=== PATIENT | male | born 1950 | race Caucasian/White ===

== ENCOUNTER → 2016-12-20 | Outpatient (REF) | payer BC, MEDICARE ==
[~2016-12-20] MED LIST: /ADVA50050 IN; ADV500INH INH; ALB2.5NEB NEB; ALBU17IN INH; ALBU83IN INH; ALEV220C2 PO; ASPI81TA85 PO; AZIT250T3 PO; CEFT500T3 PO; CO Q10CA PO; COEN100T PO; DELT1TAB PO; FURO20TA2 PO; IBUP200T45 PO; IBUPOTC PO; JOIN1CAP PO; NEBUMIS2 XX; SILD50TA PO; SPIR1CAP INH; TIOT18INH INH; TYLE325T5 PO; VENTAER IN; VITA2000 PO; VITMTA PO; ZITH250T PO
[2016-12-20 12:59] LABS: ALBUMIN 3.8 GM/DL (3.2-5.2); ALKALINE PHOSPHATASE 91 U/L (45-117); ALT/SGPT 39 U/L (12-78); ANION GAP 8 MEQ/L (8-16); AST/SGOT 19 U/L (15-37); BILIRUBIN,TOTAL 0.7 MG/DL (0.2-1.0); BLOOD UREA NITROGEN 21 MG/DL (7-18); CALCIUM LEVEL 8.8 MG/DL (8.8-10.2); CARBON DIOXIDE LEVEL 33 MEQ/L (21-32); CHLORIDE LEVEL 100 MEQ/L (98-107); CHOLESTEROL LEVEL 157 MG/DL (<200); CREATININE FOR GFR 1.08 MG/DL (0.70-1.30); GLOMERULAR FILTRATION RATE > 60.0 (>49); GLUCOSE, FASTING 119 MG/DL (80-110); POTASSIUM SERUM 4.5 MEQ/L (3.5-5.1); SODIUM LEVEL 141 MEQ/L (136-145); TOTAL PROTEIN 7.6 GM/DL (6.4-8.2); TRIGLYCERIDES LEVEL 90 MG/DL (<150)
== END ==
LOC: M SFHCADAM 08:50
PROVIDERS: ATTEND Physician Assistant Medical
DX: E11.9 Type 2 diabetes mellitus without complications (principal); E66.01 Morbid (severe) obesity due to excess calories

== ENCOUNTER → 2017-01-03 | Outpatient (CLI) | payer BC, MEDICARE ==
--- NOTE | 2017-01-03 09:39 | REP ---
Clinical: Chronic obstructive pulmonary disease. Technique: Axial noncontrast images from the thoracic inlet to the upper abdomen with coronal and sagittal re-formations. Comparison: 07/11/2016, 01/11/2016. Findings: Advanced and relatively stable chronic COPD/emphysematous changes are appreciated bilaterally with scattered areas of fibrosis and scarring. A small ill-defined density in the lingula measuring 13 mm on current examination is essentially unchanged and likely represents focal area of noncalcified scarring (image 74). No new, significant area of consolidation, nodule or mass lesion identified. No pleural effusion/reaction or pneumothorax. Mediastinum is stable with atherosclerotic changes to the coronary arteries and no evidence for cardiomegaly or pericardial effusion. Mediastinal and hilar lymph nodes remain stable and nonspecific. Tracheobronchial tree appears patent. Upper abdomen again demonstrates scattered hepatic calcifications and stable 2.2 cm benign right adrenal adenoma. Surrounding musculoskeletal structures demonstrate chronic changes. Impression: 1. Advanced chronic COPD with scattered fibrosis and scarring similar to prior examination. No new, acute or significant mediastinal or pleuroparenchymal process. 2. Stable benign right adrenal adenoma. Signed by Sean Fenton MD 01/03/2017 09:31 A
== END ==
LOC: M RAD 07:52
PROVIDERS: ATTEND Internal Medicine Pulmonary Disease
DX: J44.9 Chronic obstructive pulmonary disease, unspecified (principal)

== ENCOUNTER → 2017-07-10 | Outpatient (REF) | payer BC, MEDICARE ==
[~2017-07-10] MED LIST changes: +AZIT-12 PO; -AZIT250T3 PO
[2017-07-10 14:06] LABS: BASO % 0.2 % (0.0-1.0); EOS # 0.2 10^3/uL (0.0-0.50); EOS % 1.8 % (0.0-3.0); LYMPH # 1.5 10^3/uL (1.5-4.5); LYMPH % 16.5 % (24.0-44.0); MEAN CORPUSCULAR HEMOGLOBIN 30.2 pg (27.0-33.0); MEAN CORPUSCULAR HGB CONC 32.3 g/dl (32.0-36.5); MEAN CORPUSCULAR VOLUME 93.5 fl (80.0-96.0); MONO # 0.8 10^3/uL (0.0-0.8); MONO % 8.7 % (0.0-5.0); NEUTROPHILS # 6.5 10^3/uL (1.8-7.7); NEUTROPHILS % 72.2 % (36.0-66.0); PLATELET COUNT, AUTOMATED 151 10^3/uL (150-450); RED CELL DISTRIBUTION WIDTH 14.4 % (11.5-14.5)
[2017-07-10 14:57] LABS: ALBUMIN 3.5 GM/DL (3.2-5.2); ALBUMIN/GLOBULIN RATIO 0.92 (1.00-1.93); ALKALINE PHOSPHATASE 80 U/L (45-117); ALT/SGPT 37 U/L (12-78); ANION GAP 7 MEQ/L (8-16); AST/SGOT 14 U/L (15-37); BILIRUBIN,TOTAL 0.6 MG/DL (0.2-1.0); BLOOD UREA NITROGEN 19 MG/DL (7-18); CARBON DIOXIDE LEVEL 32 MEQ/L (21-32); CHLORIDE LEVEL 101 MEQ/L (98-107); CREATININE FOR GFR 0.99 MG/DL (0.70-1.30); GLOMERULAR FILTRATION RATE > 60.0 (>49); GLUCOSE, FASTING 114 MG/DL (80-110); POTASSIUM SERUM 4.8 MEQ/L (3.5-5.1); SODIUM LEVEL 140 MEQ/L (136-145); TOTAL PROTEIN 7.3 GM/DL (6.4-8.2)
--- NOTE | 2017-07-20 09:54 | ECWPNAD ---
PATIENT NAME: JAMES BALDERAS : 1950 GENDER: MALE VISIT DATE: 07/10/2017 DISCHARGE DATE: 07/10/17 0000 VISIT LOCKED DATE TIME: PHYSICIAN: SUE GABRIEL RESOURCE: KATIE JUÁREZ REASON FOR APPOINTMENT 1. CHART REVIEW PAST MEDICAL HISTORY DM TYPE II - DIET CONTROLLED, (HGBA1C 7.6% 02/2013) COPD MORBID OBESITY CHRONIC VENOUS INSUFF H/O SY DEP, QUIT IN 04/29 EKG NSR, 1ST DEGREE AV BLOCK, NONSPEC T WAVE ABN, NO PRIORS FOR COMPARISON 01/28 COLONOSCOPY WITH DIVERTICULOSIS, POLYPS, ADENAMATOUS & HYPERPLASTIC 07/26 CT NOTED R ADRENAL ADENOMA 1.7 CM 04/29 - NEG SPECT - CHIP 04/29 ECHO + DIASTOLIC CHF, NL LV, NL EF ED 12/29 - ABN CT CHEST WITH L HILAR ADENOPATHY, CONSOLIDATION IN THE LAW ALLERGIES NO[ALLERGIES VERIFIED] ASSESSMENTS TYPE 2 DIABETES MELLITUS WITHOUT COMPLICATIONS - E11.9 (PRIMARY) MORBID (SEVERE) OBESITY DUE TO EXCESS CALORIES - E66.01 CHRONIC DIASTOLIC (CONGESTIVE) HEART FAILURE - I50.32 PERSONAL HISTORY OF NICOTINE DEPENDENCE - Z87.891 OTHER MALE ERECTILE DYSFUNCTION - N52.8 COPD (CHRONIC OBSTRUCTIVE PULMONARY DISEASE) - J44.[address] - R93.8 ENCOUNTER FOR IMMUNIZATION - Z23 TREATMENT TYPE 2 DIABETES MELLITUS WITHOUT COMPLICATIONS LAB: COMPREHENSIVE METABOLIC PROFILE GLUCOSE 114 (80-110 - MG/DL) BUN 19 (7-18 - MG/DL) CREATININE 0.99 (0.70-1.30 - MG/DL) GLOMERULAR FILTRATION RATE > 60.0 (>49 - ) SODIUM 140 (136-145 - MEQ/L) POTASSIUM 4.8 (3.5-5.1 - MEQ/L) CHLORIDE 101 (98-107 - MEQ/L) CARBON DIOXIDE 32 (21-32 - MEQ/L) CALCIUM 9.0 (8.8-10.2 - MG/DL) AST/SGOT 14 (15-37 - U/L) ALT/SGPT 37 (12-78 - U/L) ALK PHOS 80 (45-117 - U/L) BILIRUBIN,TOTAL 0.6 (0.2-1.0 - MG/DL) TOTAL PROTEIN 7.3 (6.4-8.2 - GM/DL) ALBUMIN 3.5 (3.2-5.2 - GM/DL) ALB/GLOB RATIO 0.92 (1.00-1.93 - ) LAB: HEMOGLOBIN A1C HEMOGLOBIN A1C FILL OUT FOR REPORTING 5.9 (4.5-6.2 - %) EST AVE GLUCOSE 123 (60-110 - MG/DL) LAB: MICROALBUMIN RANDOM CREATININE URINE 45.9 ( - MG/DL) UR MICROALBUMIN < 5.0 ( - MG/L) MASSIMO/CREAT RATIO 10.8 (0.0-30.0 - MCG/MG) COPD (CHRONIC OBSTRUCTIVE PULMONARY DISEASE) LAB: CBC WITH DIFFERENTIAL WBC 9.0 (4.0-10.0 - 10) RBC 5.37 (4.30-6.10 - 10) HEMOGLOBIN 16.2 (14.0-18.0 - G/DL) HEMATOCRIT 50.2 (42.0-52.0 - %) MCV 93.5 (80.0-96.0 - FL) MCH 30.2 (27.0-33.0 - PG) MCHC 32.3 (32.0-36.5 - G/DL) RDW 14.4 (11.5-14.5 - %) PLATELET COUNT 151 (150-450 - 10) LYMPH % 16.5 (24.0-44.0 - %) MONO % 8.7 (0.0-5.0 - %) NEUT % 72.2 (36.0-66.0 - %) EOS % 1.8 (0.0-3.0 - %) BASO % 0.2 (0.0-1.0 - %) NEUT # 6.5 (1.8-7.7 - 10) LYMPH # 1.5 (1.5-4.5 - 10) MONO # 0.8 (0.0-0.8 - 10) EOS # 0.2 (0.0-0.50 - 10) BASO # 0.0 (0.0-0.2 - 10) PROCEDURE CODES 87613 NO CHARGE VISIT DISPOSITION & COMMUNICATION ELECTRONICALLY SIGNED BY JUAN C GARCIA ON 07/17/2017 AT 10:18 AM EDT DISCLAIMER : THIS IS A VISIT SUMMARY EXTRACTED FROM THE [employer] CHART. IT IS NOT A COPY OF THE [employer] PROGRESS NOTE. MTDD
== END ==
LOC: M SFHCADAM 07:58
PROVIDERS: ATTEND Physician Assistant Medical
DX: J44.9 Chronic obstructive pulmonary disease, unspecified (principal); E11.9 Type 2 diabetes mellitus without complications

== ENCOUNTER → 2017-07-13 | Outpatient (CLI) | payer BC, MEDICARE ==
--- NOTE | 2017-07-14 06:07 | REP ---
Clinical: Follow-up pulmonary nodule. Comparison: 07/11/2016, 07/30/2011. Findings: Advanced COPD and emphysematous changes are appreciated with areas of chronic subpleural fibrosis and linear/plate-like fibroatelectatic changes. Nodular density in the lingula measuring approximately 13 mm remains relatively unchanged and likely represents chronic scarring. A small area of ill-defined density in the deep right sulcus (image 97) likely represents progressive scarring as well. No acute consolidation, significant nodule or mass lesion otherwise identified. Chronic bronchiectasis is consistent with advanced COPD and emphysematous changes. Mediastinal lymph nodes including a precarinal lymph node again measuring up to approximately 15 mm are unchanged. Atherosclerotic changes to the thoracic aorta and coronary arteries noted without aneurysm or cardiomegaly. No pericardial effusion. Hepatic parenchymal calcifications and right adrenal adenoma remains stable. Impression: 1. Advanced COPD and emphysematous changes including bronchiectasis and scattered scarring and fibrosis. The 13 mm density in the lingula remains unchanged and likely represents scarring. A small area of presumed progressive scarring in the deep right posterior sulcus is minimally increased from prior examination. Mediastinal lymph nodes remain stable. 2. No further acute, significant mediastinal or pleuroparenchymal process appreciated. 3. Hepatic calcifications and benign right adrenal adenoma unchanged. Signed by Sean Fenton MD 07/14/2017 05:58 A
== END ==
LOC: M RAD 10:53
PROVIDERS: ATTEND Internal Medicine Pulmonary Disease
DX: R91.1 Solitary pulmonary nodule (principal); J44.9 Chronic obstructive pulmonary disease, unspecified; K76.89 Other specified diseases of liver

== ENCOUNTER → 2018-01-30 | Outpatient (CLI) | payer BC, MEDICARE ==
[2018-01-30 09:11] LABS: BASO % 0.5 % (0.0-1.0); EOS # 0.1 10^3/uL (0.0-0.50); EOS % 1.7 % (0.0-3.0); HEMATOCRIT 52.6 % (42.0-52.0); HEMOGLOBIN 17.4 g/dl (13.5-17.5); IMMATURE GRANULOCYTE % 0.6 % (0-3.0); LYMPH # 1.3 10^3/uL (1.5-4.5); LYMPH % 15.9 % (24.0-44.0); MEAN CORPUSCULAR HEMOGLOBIN 30.2 pg (27.0-33.0); MEAN CORPUSCULAR HGB CONC 33.1 g/dl (32.0-36.5); MEAN CORPUSCULAR VOLUME 91.3 fl (80.0-96.0); MONO # 0.6 10^3/uL (0.0-0.8); MONO % 7.2 % (0.0-5.0); NEUTROPHILS # 6.1 10^3/uL (1.8-7.7); NEUTROPHILS % 74.1 % (36.0-66.0); PLATELET COUNT, AUTOMATED 155 10^3/uL (150-450); RED BLOOD COUNT 5.76 10^6/uL (4.30-6.10); RED CELL DISTRIBUTION WIDTH 13.9 % (11.5-14.5); WHITE BLOOD COUNT 8.3 10^3/uL (4.0-10.0)
[2018-01-30 09:20] LABS: TOTAL 25(OH) VITAMIN D 41.5 NG/ML (30.0-100.0)
[2018-01-30 09:22] LABS: ALBUMIN 3.9 GM/DL (3.2-5.2); ALBUMIN/GLOBULIN RATIO 0.89 (1.00-1.93); ALKALINE PHOSPHATASE 93 U/L (45-117); ALT/SGPT 25 U/L (12-78); ANION GAP 6 MEQ/L (8-16); AST/SGOT 17 U/L (7-37); BILIRUBIN,TOTAL 0.7 MG/DL (0.2-1.0); BLOOD UREA NITROGEN 17 MG/DL (7-18); CALCIUM LEVEL 8.8 MG/DL (8.8-10.2); CARBON DIOXIDE LEVEL 31 MEQ/L (21-32); CHLORIDE LEVEL 103 MEQ/L (98-107); CREATININE FOR GFR 0.95 MG/DL (0.70-1.30); GLOMERULAR FILTRATION RATE > 60.0 (>49); GLUCOSE, FASTING 119 MG/DL (70-100); POTASSIUM SERUM 4.3 MEQ/L (3.5-5.1); SODIUM LEVEL 140 MEQ/L (136-145); TOTAL PROTEIN 8.3 GM/DL (6.4-8.2)
[2018-01-30 09:25] LABS: CREATININE, URINE 13.3 MG/DL; MALB URINE SIEMENS < 5.0 MG/L; MAU/CREAT RATIO 37.5 MCG/MG (0.0-30.0)
[2018-01-30 10:28] LABS: ESTIMATED AVERAGE GLUCOSE 128 MG/DL (60-110); HEMOGLOBIN A1c 6.1 %
== END ==
LOC: M WUC 08:18
DX: E11.9 Type 2 diabetes mellitus without complications (principal); I50.32 Chronic diastolic (congestive) heart failure; J44.9 Chronic obstructive pulmonary disease, unspecified
CPT/HCPCS: 84443

== ENCOUNTER → 2018-02-25 | Outpatient (CLI) | payer BC, MEDICARE | LOC: M WUC 16:41 | DX: J44.1 Chronic obstructive pulmonary disease with (acute) exacerbation (principal) | CPT/HCPCS: 71046 ==

== ENCOUNTER 2018-04-30 07:17 | Day surgery (SDC) | payer BC, MEDICARE ==
[2018-04-30] MEDS: NS 1,000 ML IV (07:54)
[2018-04-30] MEDS ORDERED: LIDOCAINE 2% INJ 100 MG/5 ML SDV (FOR ANES.) As Ordered ×2 (08:50→10:07)
[2018-04-30] MEDS ORDERED: PROPOFOL 500 MG/50 ML VIAL As Ordered ×2 (08:50→10:07)
== END 2018-04-30 10:10 | disposition home or self-care (01) ==
LOC: M OPP 07:17
DX: Z12.11 Encounter for screening for malignant neoplasm of colon (principal); K64.0 First degree hemorrhoids; K57.30 Diverticulosis of large intestine without perforation or abscess without bleeding; D12.0 Benign neoplasm of cecum; D12.2 Benign neoplasm of ascending colon; Z86.010 Personal history of colon polyps; E11.9 Type 2 diabetes mellitus without complications; J44.9 Chronic obstructive pulmonary disease, unspecified; G47.30 Sleep apnea, unspecified; R06.83 Snoring; M12.9 Arthropathy, unspecified; Z79.82 Long term (current) use of aspirin; Z79.899 Other long term (current) drug therapy; Z87.891 Personal history of nicotine dependence; Z80.42 Family history of malignant neoplasm of prostate
CPT/HCPCS: 45385

== ENCOUNTER → 2018-07-16 | Outpatient (CLI) | payer BC | LOC: M RAD 07:58 | DX: R91.1 Solitary pulmonary nodule (principal) | CPT/HCPCS: 71250 ==

== ENCOUNTER → 2018-07-23 | Outpatient (REF) | payer BC, MEDICARE ==
[2018-07-23 12:49] LABS: BASO % 0.4 % (0.0-1.0); EOS # 0.2 10^3/uL (0.0-0.50); EOS % 1.8 % (0.0-3.0); HEMATOCRIT 53.2 % (42.0-52.0); HEMOGLOBIN 16.9 g/dl (13.5-17.5); IMMATURE GRANULOCYTE % 0.5 % (0-3.0); LYMPH # 1.4 10^3/uL (1.5-4.5); LYMPH % 16.6 % (24.0-44.0); MEAN CORPUSCULAR HEMOGLOBIN 29.6 pg (27.0-33.0); MEAN CORPUSCULAR HGB CONC 31.8 g/dl (32.0-36.5); MEAN CORPUSCULAR VOLUME 93.3 fl (80.0-96.0); MONO # 0.7 10^3/uL (0.0-0.8); MONO % 7.8 % (0.0-5.0); NEUTROPHILS # 6.1 10^3/uL (1.8-7.7); NEUTROPHILS % 72.9 % (36.0-66.0); PLATELET COUNT, AUTOMATED 147 10^3/uL (150-450); RED CELL DISTRIBUTION WIDTH 14.5 % (11.5-14.5); WHITE BLOOD COUNT 8.3 10^3/uL (4.0-10.0)
[2018-07-23 13:38] LABS: ESTIMATED AVERAGE GLUCOSE 128 MG/DL (60-110); HEMOGLOBIN A1c 6.1 %
[2018-07-23 14:06] LABS: ALBUMIN/GLOBULIN RATIO 1.03 (1.00-1.93); ALKALINE PHOSPHATASE 94 U/L (45-117); ALT/SGPT 27 U/L (12-78); ANION GAP 7 MEQ/L (8-16); AST/SGOT 22 U/L (7-37); BILIRUBIN,TOTAL 0.5 MG/DL (0.2-1.0); BLOOD UREA NITROGEN 17 MG/DL (7-18); CALCIUM LEVEL 8.9 MG/DL (8.8-10.2); CARBON DIOXIDE LEVEL 32 MEQ/L (21-32); CHLORIDE LEVEL 100 MEQ/L (98-107); CHOLESTEROL LEVEL 184 MG/DL (<200); FREE T4 1.16 NG/DL (0.76-1.46); GLOMERULAR FILTRATION RATE > 60.0 (>49); GLUCOSE, FASTING 114 MG/DL (70-100); HDL CHOLESTEROL 80 MG/DL (>40); LDL CHOLESTEROL 92 MG/DL (<100); NON-HDL-C 104 MG/DL; POTASSIUM SERUM 4.6 MEQ/L (3.5-5.1); SODIUM LEVEL 139 MEQ/L (136-145); TOTAL PROTEIN 7.9 GM/DL (6.4-8.2); TRIGLYCERIDES LEVEL 58 MG/DL (<150)
== END ==
LOC: M SFHCADAM 07:51
DX: E11.9 Type 2 diabetes mellitus without complications (principal); E66.01 Morbid (severe) obesity due to excess calories
CPT/HCPCS: 84443

== ENCOUNTER → 2018-10-19 | Outpatient (CLI) | payer BC, MEDICARE ==
[~2018-10-19] MED LIST changes: +CETI10CH PO; +MUCI600T31 PO
--- NOTE | 2018-10-19 16:13 | REP ---
REASON: Followup nodules and densities. COMPARISON: Multiple, all of which have been reviewed. The latest is 07/16/2018. There is no change in the mediastinum and pulmonary ludin. There is mediastinal adenopathy status quo. Borderline to mildly enlarged hilar lymph nodes can not be ruled out. No pleural or pericardial effusions have developed. There is no change in the imaged upper abdomen or imaged osseous structures. Evaluation of the lung singh show marked emphysematous changes and stable scattered asymmetric and nodular densities throughout and bilaterally without evidence of a new abnormal nodule, mass, or opacity. There is also bronchiectasis status quo. IMPRESSION: Markedly abnormal findings as described above without evidence of significant change from 07/16/2018, however, there is evidence of slow progression of abnormalities when compared to 01/11/2016. It should, however, be stated that on that 01/11/2016 examination there were acute findings which have resolved. Electronically Signed by Deacon Jones DO 10/19/2018 04:58 P
== END ==
LOC: M RAD 13:37
PROVIDERS: ATTEND Internal Medicine Pulmonary Disease
DX: R91.8 Other nonspecific abnormal finding of lung field (principal)

== ENCOUNTER 2018-11-12 07:16 | Day surgery (SDC) | payer BC ==
[~2018-11-12] VITALS: Ht 177.8 cm; Wt 104.3 kg
[~2018-11-12 07:16] MED LIST changes: +GLUC1CAP10 PO; +NS 1,000 ML IV ONE; +VENTAER INH
[2018-11-12] MEDS ORDERED: LIDOCAINE 2% INJ 100 MG/5 ML SDV (FOR ANES.) As Ordered ONE (07:53)
[2018-11-12] MEDS ORDERED: PROPOFOL 200 MG/20 ML VIAL As Ordered ONE ×2 (07:53→09:57)
--- NOTE | 2018-11-12 10:05 | ROOR ---
Patient Name: Royal Garcia Procedure Date: 11/12/2018 9:07 AM Date of : 1950 Age: 68 Room: [facility] Gender: Male Note Status: Finalized Procedure: Total Colonoscopy to Cecum + Cold Snare Polypectomy + Hemoclips + APC Indications: High risk colon cancer surveillance: Personal history of colonic polyps Providers: Tristen Youssef MD Referring MD: LAURIE Montelongo Requesting Provider: Medicines: Monitored Anesthesia Care Complications: No immediate complications. Procedure: Pre-Anesthesia Assessment: - The heart rate, respiratory rate, oxygen saturations, blood pressure, adequacy of pulmonary ventilation, and response to care were monitored throughout the procedure. The Colonoscope was introduced through the anus and advanced to the cecum, identified by appendiceal orifice and ileocecal valve. The colonoscopy was performed without difficulty. The patient tolerated the procedure well. The quality of the bowel preparation was good. Findings: The perianal and digital rectal examinations were normal. Non-bleeding internal hemorrhoids were found during retroflexion. The hemorrhoids were small and Grade I (internal hemorrhoids that do not prolapse). Multiple sessile polyps were found in the ascending colon. The polyps were large in size. These polyps were removed with a cold snare. Resection and retrieval were complete. Vaporization for tissue destruction using argon plasma at 0.8 liters/minute and 35 ramos was successful. Multiple sessile polyps were found in the hepatic flexure. The polyps were large in size. These polyps were removed with a cold snare. Resection and retrieval were complete. To prevent bleeding after the polypectomy, four hemostatic clips were successfully placed (MR conditional). There was no bleeding at the end of the procedure. The exam was otherwise without abnormality on direct and retroflexion views. Multiple small and large-mouthed diverticula were found in the recto-sigmoid colon, sigmoid colon and descending colon. The exam was otherwise without abnormality. Impression: - Non-bleeding internal hemorrhoids. - Multiple large polyps in the ascending colon, removed with a cold snare. Resected and retrieved. Treated with argon plasma coagulation (APC). - Multiple large polyps at the hepatic flexure, removed with a cold snare. Resected and retrieved. Clips (MR conditional) were placed. - The examination was otherwise normal on direct and retroflexion views. - Diverticulosis in the recto-sigmoid colon, in the sigmoid colon and in the descending colon. - The examination was otherwise normal. - The exam was otherwise normal to the cecum. Recommendation: - Patient has a contact number available for emergencies. The signs and symptoms of potential delayed complications were discussed with the patient. Return to normal activities tomorrow. Written discharge instructions were provided to the patient. - Resume previous diet. - Discharge patient to home. - Continue present medications. - Await pathology results. - Telephone GI clinic for pathology results in 1 week. - Repeat colonoscopy in 6 months for surveillance based on pathology results. - Return to referring physician. - The findings and recommendations were discussed with the patient's family. Tristen Youssef MD Tristen Youssef MD 11/12/2018 10:04:42 AM This report has been signed electronically. Number of Addenda: 0 Note Initiated On: 11/12/2018 9:07 AM Estimated Blood Loss: Estimated blood loss: none.
[2018-11-12 10:20] VITALS: BP 122/73
== END 2018-11-12 10:33 | disposition home or self-care (01) ==
LOC: M OPP 07:16
PROVIDERS: ATTEND Internal Medicine Gastroenterology
DX: Z09 Encounter for follow-up examination after completed treatment for conditions other than malignant neoplasm (principal); Z86.010 Personal history of colon polyps; K64.0 First degree hemorrhoids; D12.2 Benign neoplasm of ascending colon; D12.3 Benign neoplasm of transverse colon; K57.30 Diverticulosis of large intestine without perforation or abscess without bleeding; J44.9 Chronic obstructive pulmonary disease, unspecified; E11.9 Type 2 diabetes mellitus without complications; Z79.82 Long term (current) use of aspirin; Z79.899 Other long term (current) drug therapy; Z87.891 Personal history of nicotine dependence

== ENCOUNTER → 2018-12-06 | Outpatient (CLI) | payer BC, MEDICARE ==
[~2018-12-06] MED LIST changes: -NS 1,000 ML IV ONE
--- NOTE | 2018-12-06 13:43 | REP ---
CT of the abdomen and pelvis without IV and oral contrast for nephrolithiasis: Comparison is 07/30/2011. There are no renal calculi. There are no ureteral calculi. There is no hydronephrosis. There are no bladder calculi. The prostate is enlarged and effaces the bladder base. There is no perinephric stranding. There is dependent atelectasis in the visualized lower lung bases. The hepatic parenchyma demonstrates multiple calcifications inferomedially in the right lobe of the liver and a few in the left lobe of the liver, similar to the prior study, likely degenerative granulomatous calcifications. The liver is otherwise unremarkable. There are surgical clips in the gallbladder fossa. The unenhanced pancreas and spleen are normal size unremarkable. There is a 2 cm hypodense right adrenal nodule with CT density of 3.8 HU, compatible with benign adenoma, not significantly changed from the prior study. Left adrenal is unremarkable. The unenhanced abdominal aorta is unremarkable. There is no retroperitoneal adenopathy or mass. There is no bowel distension or obstruction. There is descending colon and sigmoid colon diverticulosis without diverticulitis. The mesentery is unremarkable. Pelvis: The appendix is unremarkable. There is no ascites or adenopathy. Impression: There is no hydronephrosis. There are no renal, ureteral or bladder calculi. The prostate is enlarged and effaces the bladder base. There is a right adrenal nodule having a benign appearance, unchanged from prior studies. There are dystrophic versus granulomas calcifications in the liver, unchanged. There is bibasilar atelectasis in the visualized lower lung singh. Electronically Signed by Colin Contreras MD 12/06/2018 01:34 P
== END ==
LOC: M RAD 12:46
PROVIDERS: ATTEND Physician Assistant Medical
DX: N20.0 Calculus of kidney (principal)

== ENCOUNTER → 2018-12-06 | Outpatient (REF) | payer BC, MEDICARE ==
[2018-12-06 13:39] LABS: APPEARANCE, URINE CLEAR (CLEAR); BACTERIA, URINE AUTO NEGATIVE (NEGATIVE); BILIRUBIN, URINE AUTO NEGATIVE (NEGATIVE); BLOOD, URINE BLOOD NEGATIVE (NEGATIVE); COLOR, URINE YELLOW (YELLOW); GLUCOSE, URINE (UA) AUTO NEGATIVE (NEGATIVE); KETONE, URINE AUTO NEGATIVE (NEGATIVE); LEUKOCYTE ESTERASE, URINE AUTO NEGATIVE (NEGATIVE); MUCUS, URINE SMALL (NEGATIVE); NITRITE, URINE AUTO NEGATIVE (NEGATIVE); PROTEIN, URINE AUTO NEGATIVE (NEGATIVE); RBC, URINE AUTO 4 /HPF (0-3); SPECIFIC GRAVITY URINE AUTO 1.012 (1.002-1.035); SQUAMOUS EPITHELIAL CELL UR AU 0 /HPF (0-6); UROBILINOGEN, URINE AUTO 0.2 mg/dL (0.0-2.0); WBC, URINE AUTO 2 /HPF (0-3)
[2018-12-06 13:42] LABS: BASO % 0.4 % (0.0-1.0); EOS # 0.1 10^3/uL (0.0-0.50); EOS % 0.7 % (0.0-3.0); HEMOGLOBIN 16.6 g/dl (13.5-17.5); LYMPH # 1.2 10^3/uL (1.5-4.5); LYMPH % 12.4 % (24.0-44.0); MEAN CORPUSCULAR HEMOGLOBIN 30.1 pg (27.0-33.0); MEAN CORPUSCULAR HGB CONC 32.5 g/dl (32.0-36.5); MEAN CORPUSCULAR VOLUME 92.4 fl (80.0-96.0); MONO # 0.8 10^3/uL (0.0-0.8); MONO % 8.4 % (0.0-5.0); NEUTROPHILS # 7.5 10^3/uL (1.8-7.7); NEUTROPHILS % 77.6 % (36.0-66.0); PLATELET COUNT, AUTOMATED 178 10^3/uL (150-450); RED BLOOD COUNT 5.52 10^6/uL (4.30-6.10); WHITE BLOOD COUNT 9.7 10^3/uL (4.0-10.0)
[2018-12-06 14:14] LABS: ALBUMIN 3.7 GM/DL (3.2-5.2); ALT/SGPT 31 U/L (12-78); BILIRUBIN,TOTAL 0.6 MG/DL (0.2-1.0); BLOOD UREA NITROGEN 17 MG/DL (7-18); CALCIUM LEVEL 8.8 MG/DL (8.8-10.2); CARBON DIOXIDE LEVEL 31 MEQ/L (21-32); CHLORIDE LEVEL 101 MEQ/L (98-107); CREATININE FOR GFR 0.93 MG/DL (0.70-1.30); GLOMERULAR FILTRATION RATE > 60.0 (>49); GLUCOSE, FASTING 117 MG/DL (70-100); POTASSIUM SERUM 4.2 MEQ/L (3.5-5.1); SODIUM LEVEL 139 MEQ/L (136-145); TOTAL PROTEIN 7.8 GM/DL (6.4-8.2)
== END ==
LOC: M SFHCPLAZ 12:16
PROVIDERS: ATTEND Physician Assistant Medical
DX: R31.0 Gross hematuria (principal); N20.0 Calculus of kidney

== ENCOUNTER → 2019-02-12 | Outpatient (CLI) | payer BC ==
[~2019-02-12] MED LIST changes: -/ADVA50050 IN; +ADVA1AER2 IN
[2019-02-12 13:37] LABS: ALBUMIN 3.7 GM/DL (3.2-5.2); ALT/SGPT 35 U/L (12-78); BILIRUBIN,TOTAL 0.5 MG/DL (0.2-1.0); BLOOD UREA NITROGEN 14 MG/DL (7-18); CALCIUM LEVEL 8.9 MG/DL (8.8-10.2); CARBON DIOXIDE LEVEL 34 MEQ/L (21-32); CHLORIDE LEVEL 104 MEQ/L (98-107); CHOLESTEROL LEVEL 167 MG/DL (<200); CHOLESTEROL RISK RATIO 2.352 (<5); CREATININE FOR GFR 0.94 MG/DL (0.70-1.30); GLOMERULAR FILTRATION RATE > 60.0 (>49); GLUCOSE, FASTING 135 MG/DL (70-100); HDL CHOLESTEROL 71 MG/DL (>40); LDL CHOLESTEROL 83 MG/DL (<100); NON-HDL-C 96 MG/DL; POTASSIUM SERUM 4.7 MEQ/L (3.5-5.1); SODIUM LEVEL 141 MEQ/L (136-145); TOTAL PROTEIN 7.3 GM/DL (6.4-8.2); TRIGLYCERIDES LEVEL 66 MG/DL (<150)
[2019-02-12 14:22] LABS: HEMOGLOBIN A1c 6.3 %
== END ==
LOC: M WUC 08:49
PROVIDERS: ATTEND Physician Assistant Medical
DX: E11.9 Type 2 diabetes mellitus without complications (principal); J44.9 Chronic obstructive pulmonary disease, unspecified; E66.01 Morbid (severe) obesity due to excess calories

== ENCOUNTER → 2019-02-14 | Outpatient (REF) | payer BC, MEDICARE ==
[2019-02-14 12:56] LABS: APPEARANCE, URINE CLEAR (CLEAR); BACTERIA, URINE AUTO NEGATIVE (NEGATIVE); BILIRUBIN, URINE AUTO NEGATIVE (NEGATIVE); BLOOD, URINE BLOOD NEGATIVE (NEGATIVE); COLOR, URINE YELLOW (YELLOW); GLUCOSE, URINE (UA) AUTO NEGATIVE (NEGATIVE); KETONE, URINE AUTO TRACE mg/dL (NEGATIVE); LEUKOCYTE ESTERASE, URINE AUTO NEGATIVE (NEGATIVE); MUCUS, URINE SMALL (NEGATIVE); NITRITE, URINE AUTO NEGATIVE (NEGATIVE); PROTEIN, URINE AUTO NEGATIVE (NEGATIVE); RBC, URINE AUTO 0 /HPF (0-3); SPECIFIC GRAVITY URINE AUTO 1.006 (1.002-1.035); SQUAMOUS EPITHELIAL CELL UR AU 0 /HPF (0-6); UROBILINOGEN, URINE AUTO 0.2 mg/dL (0.0-2.0); WBC, URINE AUTO 0 /HPF (0-3)
== END ==
LOC: M SFHCADAM 08:50
PROVIDERS: ATTEND Physician Assistant Medical
DX: R31.0 Gross hematuria (principal)

== ENCOUNTER 2019-06-12 06:29 | Day surgery (SDC) | payer BC ==
[~2019-06-12] VITALS: Ht 177.8 cm; Wt 95.7 kg
[~2019-06-12 06:29] MED LIST changes: +ACET325T10 PO; +ALLE180T33 PO; +FISH1000 PO; +NS 1,000 ML IV ONE; +super beta prostate PO
[2019-06-12] MEDS ORDERED: PROPOFOL 200 MG/20 ML VIAL As Ordered ONE (07:00)
--- NOTE | 2019-06-12 08:09 | ROOR ---
Patient Name: Royal Garcia Procedure Date: 06/12/2019 7:38 AM Date of : 1950 Age: 69 Room: [facility] Gender: Male Note Status: Finalized Procedure: Total Colonoscopy to Cecum + Cold Snare Polypectomy + Hemoclips Indications: High risk colon cancer surveillance: Personal history of adenoma with villous component Providers: Tristen Youssef MD Referring MD: LAURIE Montelongo Requesting Provider: Medicines: Monitored Anesthesia Care Complications: No immediate complications. Procedure: Pre-Anesthesia Assessment: - The heart rate, respiratory rate, oxygen saturations, blood pressure, adequacy of pulmonary ventilation, and response to care were monitored throughout the procedure. The Colonoscope was introduced through the anus and advanced to the cecum, identified by appendiceal orifice and ileocecal valve. Findings: The perianal and digital rectal examinations were normal. Non-bleeding internal hemorrhoids were found during retroflexion. The hemorrhoids were small and Grade I (internal hemorrhoids that do not prolapse). Multiple small and large-mouthed diverticula were found in the recto-sigmoid colon, sigmoid colon and descending colon. A small polyp was found in the ascending colon. The polyp was sessile. The polyp was removed with a jumbo cold forceps. Resection and retrieval were complete. Two sessile polyps were found in the mid ascending colon. The polyps were medium in size. These polyps were removed with a cold snare. Resection and retrieval were complete. To prevent bleeding after the polypectomy, two hemostatic clips were successfully placed (MR conditional). There was no bleeding at the end of the procedure. The exam was otherwise without abnormality on direct and retroflexion views. Impression: - Non-bleeding internal hemorrhoids. - Diverticulosis in the recto-sigmoid colon, in the sigmoid colon and in the descending colon. - One small polyp in the ascending colon, removed with a jumbo cold forceps. Resected and retrieved. - Two medium polyps in the mid ascending colon, removed with a cold snare. Resected and retrieved. Clips (MR conditional) were placed. - The examination was otherwise normal on direct and retroflexion views. - The exam was otherwise normal to the cecum. Recommendation: - Patient has a contact number available for emergencies. The signs and symptoms of potential delayed complications were discussed with the patient. Return to normal activities tomorrow. Written discharge instructions were provided to the patient. - High fiber diet. - Discharge patient to home. - Continue present medications. - Await pathology results. - Telephone GI clinic for pathology results in 1 week. - Repeat colonoscopy in 1 year for surveillance based on pathology results. - Return to referring physician. - Check Portal Online for Path Results.([email or web address] - The findings and recommendations were discussed with the patient's family. Tristen Youssef MD Tristen Youssef MD 06/12/2019 8:08:41 AM Electronically signed by Tristen Youssef MD Number of Addenda: 0 Note Initiated On: 06/12/2019 7:38 AM Estimated Blood Loss: Estimated blood loss: none.
[2019-06-12 08:30] VITALS: BP 125/82
== END 2019-06-12 08:42 | disposition home or self-care (01) ==
LOC: M OPP 06:29
PROVIDERS: ATTEND Internal Medicine Gastroenterology
DX: D37.4 Neoplasm of uncertain behavior of colon (principal); Z86.010 Personal history of colon polyps; D12.2 Benign neoplasm of ascending colon; K64.0 First degree hemorrhoids; K57.30 Diverticulosis of large intestine without perforation or abscess without bleeding; Z79.82 Long term (current) use of aspirin; Z79.899 Other long term (current) drug therapy; Z87.891 Personal history of nicotine dependence

== ENCOUNTER → 2019-08-29 | Outpatient (CLI) | payer BC ==
[~2019-08-29] MED LIST changes: -NS 1,000 ML IV ONE
[2019-08-29 09:51] LABS: AMORPHOUS SEDIMENT SMALL (NEGATIVE); APPEARANCE, URINE CLEAR (CLEAR); BACTERIA, URINE AUTO NEGATIVE (NEGATIVE); BILIRUBIN, URINE AUTO NEGATIVE (NEGATIVE); BLOOD, URINE BLOOD NEGATIVE (NEGATIVE); COLOR, URINE YELLOW (YELLOW); GLUCOSE, URINE (UA) AUTO NEGATIVE (NEGATIVE); KETONE, URINE AUTO TRACE mg/dL (NEGATIVE); LEUKOCYTE ESTERASE, URINE AUTO NEGATIVE (NEGATIVE); NITRITE, URINE AUTO NEGATIVE (NEGATIVE); PROTEIN, URINE AUTO NEGATIVE (NEGATIVE); RBC, URINE AUTO 2 /HPF (0-3); SPECIFIC GRAVITY URINE AUTO 1.013 (1.002-1.035); SQUAMOUS EPITHELIAL CELL UR AU 0 /HPF (0-6); UROBILINOGEN, URINE AUTO 0.2 mg/dL (0.0-2.0); WBC, URINE AUTO 1 /HPF (0-3)
[2019-08-29 09:54] LABS: BASO # 0.1 10^3/uL (0.0-0.2); BASO % 0.5 % (0.0-1.0); EOS # 0.1 10^3/uL (0.0-0.5); EOS % 1.3 % (0.0-3.0); HEMATOCRIT 52.2 % (42.0-52.0); HEMOGLOBIN 16.3 g/dl (13.5-17.5); LYMPH # 1.2 10^3/uL (1.5-5.0); LYMPH % 12.2 % (24.0-44.0); MEAN CORPUSCULAR HEMOGLOBIN 28.8 pg (27.0-33.0); MEAN CORPUSCULAR HGB CONC 31.2 g/dl (32.0-36.5); MEAN CORPUSCULAR VOLUME 92.4 fl (80.0-96.0); MONO # 0.7 10^3/uL (0.0-0.8); MONO % 7.7 % (0.0-5.0); NEUTROPHILS # 7.4 10^3/uL (1.5-8.5); NEUTROPHILS % 77.5 % (36.0-66.0); PLATELET COUNT, AUTOMATED 201 10^3/uL (150-450); RED BLOOD COUNT 5.65 10^6/uL (4.30-6.10); WHITE BLOOD COUNT 9.6 10^3/uL (4.0-10.0)
[2019-08-29 10:17] LABS: HEMOGLOBIN A1c 6.7 %
[2019-08-29 10:28] LABS: ALBUMIN 3.3 GM/DL (3.2-5.2); ALT/SGPT 35 U/L (12-78); BILIRUBIN,TOTAL 0.7 MG/DL (0.2-1.0); BLOOD UREA NITROGEN 13 MG/DL (7-18); CALCIUM LEVEL 9.3 MG/DL (8.8-10.2); CARBON DIOXIDE LEVEL 33 MEQ/L (21-32); CHLORIDE LEVEL 100 MEQ/L (98-107); CHOLESTEROL LEVEL 173 MG/DL (<200); CHOLESTEROL RISK RATIO 2.035 (<5); CREATININE FOR GFR 1.12 MG/DL (0.70-1.30); GLOMERULAR FILTRATION RATE > 60.0 (>49); GLUCOSE, FASTING 133 MG/DL (70-100); HDL CHOLESTEROL 85 MG/DL (>40); LDL CHOLESTEROL 74 MG/DL (<100); NON-HDL-C 88 MG/DL; POTASSIUM SERUM 4.5 MEQ/L (3.5-5.1); SODIUM LEVEL 140 MEQ/L (136-145); TOTAL PROTEIN 7.7 GM/DL (6.4-8.2); TRIGLYCERIDES LEVEL 70 MG/DL (<150)
[2019-08-29 10:35] LABS: MAU/CREAT RATIO 53.2 MCG/MG (0.0-30.0)
== END ==
LOC: M WUC 08:28
PROVIDERS: ATTEND Physician Assistant Medical
DX: R31.0 Gross hematuria (principal); E11.9 Type 2 diabetes mellitus without complications

== ENCOUNTER → 2019-09-03 | Outpatient (REF) | payer BC, MEDICARE | LOC: M SFHCADAM 10:30 | PROVIDERS: ATTEND Physician Assistant Medical | DX: N40.1 Benign prostatic hyperplasia with lower urinary tract symptoms (principal) ==

== ENCOUNTER → 2019-09-09 | Outpatient (CLI) | payer BC ==
--- NOTE | 2019-09-09 09:50 | REP ---
Clinical: Follow up abnormal lung findings. Comparison: 10/19/2018. Technique: Axial noncontrast images from the thoracic inlet to the upper abdomen with coronal and sagittal re-formations. Findings: Chronic advanced COPD/emphysematous changes with scattered fibrosis and scarring again noted and mildly progressive when compared through multiple examinations dating to 01/11/2016. The current examination demonstrates subtle increased reticulonodular opacities primarily noted in the right mid to lower lung zone suggesting subtle superimposed acute pneumonitis. No effusion. No pneumothorax. Mediastinal adenopathy remains stable. Atherosclerotic changes to the thoracic aorta and coronary arteries again noted and unchanged. No aortic aneurysm. No cardiomegaly. No pericardial effusion. Surrounding musculoskeletal structures the straight age-related degenerative changes. Limited upper abdomen demonstrates stable right adrenal adenoma and parenchymal calcifications within the liver. Impression: 1. Progressive chronic COPD/emphysematous changes with scattered scarring and fibrosis. 2. Subtle superimposed pneumonitis involving the right mid/lower lung zone should be correlated clinically and follow-up to resolution may be warranted at 3-6 months. Electronically Signed by Sean Fenton MD 09/09/2019 09:42 A
== END ==
LOC: M RAD 08:36
PROVIDERS: ATTEND Internal Medicine Pulmonary Disease
DX: R91.8 Other nonspecific abnormal finding of lung field (principal)

== ENCOUNTER → 2019-10-07 | Outpatient (REF) | payer BC, MEDICARE ==
[2019-10-07 15:52] LABS: BLOOD UREA NITROGEN 18 MG/DL (7-18); CALCIUM LEVEL 8.4 MG/DL (8.8-10.2); CARBON DIOXIDE LEVEL 40 MEQ/L (21-32); CHLORIDE LEVEL 94 MEQ/L (98-107); CREATININE FOR GFR 1.21 MG/DL (0.70-1.30); GLOMERULAR FILTRATION RATE > 60.0 (>49); GLUCOSE, FASTING 168 MG/DL (70-100); POTASSIUM SERUM 4.4 MEQ/L (3.5-5.1); SODIUM LEVEL 140 MEQ/L (136-145)
== END ==
LOC: M SFHCADAM 13:25
PROVIDERS: ATTEND Physician Assistant Medical
DX: I50.32 Chronic diastolic (congestive) heart failure (principal)

== ENCOUNTER → 2019-10-22 | Outpatient (CLI) | payer BC, MEDICARE ==
[2019-10-22 18:02] LABS: BLOOD UREA NITROGEN 20 MG/DL (7-18); CALCIUM LEVEL 8.8 MG/DL (8.8-10.2); CARBON DIOXIDE LEVEL 35 MEQ/L (21-32); CHLORIDE LEVEL 94 MEQ/L (98-107); CREATININE FOR GFR 1.04 MG/DL (0.70-1.30); GLOMERULAR FILTRATION RATE > 60.0 (>49); GLUCOSE, FASTING 173 MG/DL (70-100); SODIUM LEVEL 139 MEQ/L (136-145)
== END ==
LOC: M WUC 11:21
PROVIDERS: ATTEND Physician Assistant Medical
DX: I50.32 Chronic diastolic (congestive) heart failure (principal)

== ENCOUNTER → 2019-10-23 | Outpatient (REF) | payer BC | LOC: M LAB REF 17:05 | PROVIDERS: ATTEND Internal Medicine Pulmonary Disease | DX: J43.1 Panlobular emphysema (principal); J96.11 Chronic respiratory failure with hypoxia ==

== ENCOUNTER 2019-11-07 15:58 | Inpatient (IN) | payer BC ==
[~2019-11-07] VITALS: Ht 177.8 cm; Wt 100.5 kg
[~2019-11-07 15:58] MED LIST changes: -D 202000 PO; -FINA5TAB2 PO; -FURO40TA2 PO; -LEVO500T3 PO; -PRED10TA2 PO
[2019-11-07] MEDS ORDERED: PRED10TA2 PO (16:11)
[2019-11-07] MEDS ORDERED: LEVO500T3 PO (16:11)
[2019-11-07] MEDS ORDERED: FINA5TAB2 PO (16:12)
[2019-11-07 16:40] LABS: BASO # 0.1 10^3/uL (0.0-0.2); BASO % 0.4 % (0.0-1.0); EOS % 0.3 % (0.0-3.0); HEMATOCRIT 56.8 % (42.0-52.0); LYMPH # 0.8 10^3/uL (1.5-5.0); LYMPH % 6.5 % (24.0-44.0); MEAN CORPUSCULAR HEMOGLOBIN 28.1 pg (27.0-33.0); MEAN CORPUSCULAR HGB CONC 29.9 g/dl (32.0-36.5); MEAN CORPUSCULAR VOLUME 93.9 fl (80.0-96.0); MONO # 0.7 10^3/uL (0.0-0.8); MONO % 5.7 % (0.0-5.0); NEUTROPHILS # 10.1 10^3/uL (1.5-8.5); NEUTROPHILS % 85.7 % (36.0-66.0); PLATELET COUNT, AUTOMATED 205 10^3/uL (150-450); RED BLOOD COUNT 6.05 10^6/uL (4.30-6.10); WHITE BLOOD COUNT 11.8 10^3/uL (4.0-10.0)
[2019-11-07] MEDS ORDERED: ISOVUE-370 76% 100ML VIAL (Q9967) As Ordered ONE (17:04)
[2019-11-07 17:05] LABS: CK-MB VALUE MASS 3.1 NG/ML (<3.6); MB/CK RELATIVE INDEX 4.31 (< OR =4); TROPONIN I 0.02 NG/ML (< 0.10)
--- NOTE | 2019-11-07 17:45 | REPVR ---
PROCEDURE INFORMATION: Exam: CT Angiography Chest With Contrast Exam date and time: 11/07/2019 5:15 PM Age: 69 years old Clinical indication: Other: Hypoxia TECHNIQUE: Imaging protocol: Computed tomographic angiography of the chest with intravenous contrast. 3D rendering: MIP and/or 3D reconstructed images were created by the technologist. Radiation optimization: All CT scans at this facility use at least one of these dose optimization techniques: automated exposure control; mA and/or kV adjustment per patient size (includes targeted exams where dose is matched to clinical indication); or iterative reconstruction. Contrast material: ISOVUE 370; Contrast volume: 75 ml; Contrast route: IV; COMPARISON: CT Chest without contrast 09/09/2019 8:52 AM FINDINGS: Pulmonary arteries: There are no pulmonary emboli. There is enlargement of the central pulmonary arteries, findings which can be associated with pulmonary arterial hypertension which should be correlated clinically. Aorta: There is no aortic dissection or aneurysm. Lungs: Moderate paraseptal and centrilobular emphysema most pronounced in the mid and upper lung zones. Bibasilar parenchymal opacities which have increased in size and distribution in comparison to the prior study. Although in part may be related to chronic fibrotic changes the possibility of superimposed pneumonitis is not excluded. Pleural space: Unremarkable. No pneumothorax. No pleural effusion. Heart: There is moderate atherosclerotic calcification of the coronary arteries. Liver: Examination of the liver demonstrates a lobular surface contour, and enlargement of the left and caudate lobes, findings consistent with cirrhosis. Multiple hepatic calcifications (? thorotrast) again demonstrated. Lymph nodes: Multiple mediastinal and bilateral hilar lymph nodes measure up to 2.4 cm in the subcarinal region. Bones/joints: The spine demonstrates mild degenerative changes. Soft tissues: Unremarkable. IMPRESSION: 1. Moderate paraseptal and centrilobular emphysema most pronounced in the mid and upper lung zones. 2. Bibasilar parenchymal opacities which have increased in size and distribution in comparison to the prior study. Although in part may be related to chronic fibrotic changes the possibility of superimposed pneumonitis is not excluded. 3. There is no aortic dissection or aneurysm. 4. Examination of the liver demonstrates a lobular surface contour, and enlargement of the left and caudate lobes, findings consistent with cirrhosis. Multiple hepatic calcifications (? thorotrast) again demonstrated. 5. There are no pulmonary emboli. 6. There is enlargement of the central pulmonary arteries may indicate pulmonary arterial hypertension, which should be correlated clinically. 7. Multiple mediastinal and bilateral hilar lymph nodes measure up to 2.4 cm in the subcarinal region. Electronically signed by: Zhang Johnson On 11/07/2019 17:45:24 PM
[2019-11-07] MEDS ORDERED: FUROSEMIDE 40 MG/4 ML VIAL (J1940) IV ONE (18:00)
[2019-11-07] MEDS ORDERED: dexameTHASONE 20 MG/5 ML VIAL (J1100) IV ONE (18:00)
[2019-11-07] MEDS ORDERED: IPRATROPIUM 0.5MG/ALBUTEROL 2.5MG INH SOL UD 3ML (DUONEB)(J7620) NEB ONE (18:00)
[2019-11-07] MEDS ORDERED: D 202000 PO (18:41)
[2019-11-07] MEDS ORDERED: FURO40TA2 PO (18:41)
[2019-11-07] MEDS ORDERED: LevoFLOXacin IV 750 MG in IV 1 EA IV SCH (20:00)
[2019-11-07] MEDS ORDERED: FUROSEMIDE 40 MG/4 ML VIAL (J1940) IV SCH (20:00)
[2019-11-07] MEDS ORDERED: ALBUTEROL SULFATE 2.5 MG/0.5 ML INH NEB SOLN INH PRN (20:00)
[2019-11-07] MEDS: IPRATROPIUM 0.5MG/ALBUTEROL 2.5MG INH SOL UD 3ML (DUONEB)(J7620) NEB SCH (21:25)
[2019-11-07] MEDS: guaiFENesin ER 600 MG TAB PO SCH (21:31)
[2019-11-07] MEDS: MULTIVITAMINS/MINERALS THERAP 1 TAB PO SCH (21:31)
[2019-11-08] MEDS: TRIMETHOPRIM/SULFAMETHOXAZOLE 500 MG in D5W 500 ML IV SCH ×4 (00:21→23:44)
[2019-11-08] MEDS: IPRATROPIUM 0.5MG/ALBUTEROL 2.5MG INH SOL UD 3ML (DUONEB)(J7620) NEB SCH ×4 (01:25→19:43)
--- NOTE | 2019-11-08 02:52 | HPEPDOC ---
General Date of Admission Nov 07, 2019 at 19:55 Date of Service: Nov 07, 2019 Attending Physician: ERNESTO RAMIREZ MD Chief Complaint The patient is a 69-year-old male admitted with a reason for visit of Chf,Chronic Respiratory Failure With Hypoxia,Copd. Source: Patient, Family Exam Limitations: No limitations Timing/Duration: Week(s) Severity: Moderate Associated Symptoms: Shortness of breath History of Present Illness 69 yo man with with a history of COPD and bronchiectasis, a patient of Dr. Schwab's who is on 2L O2 at baseline and what appears to be steroids over the last 2 months and 1 month of Levaquin outpatient of Stenotrophomonas pneumonia, of which he had an initial 10d course, and a few days later was restarted for a 2 week course with 3 days remaining who presented to the ED with worsening shortness of breath and hypoxemia per his home pulse oximeter with reduced exercise tolerance and LE edema over the last 1-2 months despite titration of lasix to 40 BID. In the ED, BP was 127/82, and he was hypoxemic to 70s on 2L and was placed on 5L with saturation in high 80s, and otherwise afebrile with a respiratory rate of 20. On initial assessment he had significant LE edema and he was given lasix 40mg IV, dexamethasone 10mg and duoneb x 1. Initial work up was notable for WBC 11.8, Hgb 17, Hct 56.8, platelets 205, Cr 1.2, proBNP 6702 and a CTA showed bibasilar opacities without evidence of a PE, with some hilar adenopathy and s howed a cirrhotic liver. Sputum culture and respiratory panel were pending. I started him initially on levaquin IV for the stenotrophomonas but given the prolonged steroids over 2 months now and 1 month of levaquin, I switched him to Bactrim while the sputum is pending. Home Medications Scheduled Aspirin (Aspir 81) 81 Mg Tab, 81 MG PO DAILY, (Reported) Cholecalciferol (Vitamin D3) (Vitamin D3) 2,000 Unit Tablet, 2,000 UNIT PO DAILY, (Reported) Fexofenadine HCl (Federica Allergy) 180 Mg Tablet, 180 MG PO DAILY, (Reported) Finasteride (Finasteride) 5 Mg Tablet, 5 MG PO DAILY, (Reported) Furosemide (Furosemide) 40 Mg Tablet, 40 MG PO BID, (Reported) Gluc Alexis/Chondro Alexis A/Vit C/Mn (Glucosamine-Chondroitin Cap) 1 Cap Cap, 2 CAP PO BID, (Reported) Guaifenesin (Mucinex) 600 Mg Tab, 1,200 MG PO BID, (Reported) Levofloxacin (Levofloxacin) 500 Mg Tablet, 500 MG PO DAILY, (Reported) HAS 3 DAYS LEFT OF ANTIBIOTIC Multivitamins (Thera M Plus Tablet) 1 Tab Tab, 1 TAB PO BID, (Reported) Custar-3 Fatty Acids/Fish Oil (Fish Oil 1,000 mg Capsule) 1 Each Capsule, 1,000 MG PO BID, (Reported) Prednisone (Prednisone) 10 Mg Tablet, 10 MG PO DAILY, (Reported) Salmeterol/Fluticasone (Advair 500-50 Diskus) 28 Puff/Inhaler Aerp, 1 PUFF INH BID, (Reported) Tiotropium [place] (Spiriva) 18 Mcg Cap, 1 INHALATION INH DAILY, (Reported) Ubidecarenone (Coenzyme Q10) 100 Mg Tab, 200 MG PO DAILY, (Reported) Scheduled PRN Acetaminophen (Pain & Fever) 325 Mg Tablet, 325 MG PO Q6HP PRN for PAIN OR FEVER, (Reported) Albuterol Sulf (Albuterol Sulfate) 2.5 Mg/3 Ml Nebu, 2.5 MG INH Q4H PRN for SHORTNESS OF BREATH, (Reported) Albuterol Sulfate (Ventolin Hfa) 108 Mcg/Act Aer, 108 MCG INH PRN PRN for SHORTNESS OF BREATH, (Reported) Ibuprofen (Ibuprofen) 200 Mg Tab, 400 MG PO Q4H PRN for PAIN / FEVER, (Reported) Sildenafil Citrate (Viagra) 50 Mg Tab, 100 MG PO PRN PRN for SEXUAL ACTIVITY, (Reported) Allergies Coded Allergies: No Known Allergies (Unverified , 11/07/19) Past Medical History Medical History 1. Diastolic congestive heart failure. 2. COPD. 2 liters oxygen dependent. 3. Type 2 diabetes. 4. Adrenal adenoma. 5. Morbid obesity. 6. Erectile dysfunction. Surgical History 1. Cholecystectomy. 2. Hernia repair, umbilical. 3. Repair of anal fistula. Family History Significant Family History: No pertinent family hx Social History * Smoker: former Smoker Alcohol: Denies Drugs: denies Recent Travel/Sick Contacts: Denies: Recent travel, Recent sick contacts Psychosocial History: No pertinent psych hx Former smoker Lives at home with his Denies any alcohol or illicit drug use A-FIB/CHADSVASC A-FIB History Current/History of A-Fib/PAF?: No Current PO Anticoag Therapy: No Age/Risk Factor Scoring CHADSVASC: CHADSVASC Response (Comments) Value Age Risk Factor Age 65-74 years old 1 Gender Risk Factor Male 0 Hx of CHF Yes 1 Hx of HTN Yes 1 Hx of Stroke/TIA/or VTE No 0 Hx of Diabetes Yes 1 Hx of Vascular Disease No 0 Total 4 Treatment Treatment ordered: NONE Reason Anticoagulant not given: Not indicated/[id number] Review of Systems Constitutional: Denies: Chills, Fever, Night Sweats Eyes: Denies: Pain, Vision change ENT: Denies: Head Aches, Ear Pain, Dysphagia Skin: Denies: Rash, Lesions, Breakdown Pulmonary: Reports: Dyspnea; Denies: Pleuritic Chest Pain Cardiovascular: Reports: Edema; Denies: Chest Pain, Palpitations, Orthopnea, Paroxysmal Noc. Dyspnea, Lt Headedness, Other Symptoms Gastrointestinal: Denies: Nausea, Vomiting, Abdominal Pain, Diarrhea Genitourinary: Denies: Dysuria, Frequency, Incontinence, Retention Hematologic: Denies: Bruising, Bleeding Excessively Endocrine: Denies: Polydipsia, Polyphagia, Polyuria, Heat Intolerance, Cold Intolerance, Other Endocrine Sx Musculoskeletal: Denies: Neck Pain, Back Pain, Joint Pain, Muscle Pain, Spasms Neurological: Denies: Weakness, Numbness, Change in speech, Confusion Psych: Reports: Mood Normal; Denies: Depression, Memory Issues Physical Examination General Exam: Positive: Alert, No Acute Distress Eye Exam: Positive: PERRLA, Conjunctiva & lids normal, EOMI; Negative: Sclera icteric ENT Exam: Positive: Atraumatic, Mucous membr. moist/pink, Pharynx Normal Neck Exam: Positive: Supple; Negative: thyromegaly Chest Exam: Positive: Rales (bibasilar up to posterior midlungs L>R); Negative: Wheezing Heart Exam: Positive: Rate Normal, Regular Rhythm, Normal S1, Normal S2; Negative: Murmurs, Rubs Telemetry: Positive: No significant arrhythmia Abdomen Exam: Positive: Normal bowel sounds, Soft, Other (obese); Negative: Tenderness, Hepatospenomegaly Extremity Exam: Positive: Edema (2+ LE edema to knees); Negative: Normal pulses, Tenderness Skin Exam: Positive: Nl turgor and temperature; Negative: Breakdown, Lesion Neuro Exam: Positive: Normal Speech, Strength at 5/5 X4 ext, Cranial Nerves 3- 12 NL Psych Exam: Positive: Mental status NL, Mood NL, Oriented x 3 Vital Signs Vital Signs Date Time Temp Pulse Resp B/P (MAP) Pulse Ox O2 Delivery O2 Flow Rate FiO2 11/07/19 21:00 127/73 (91) 11/07/19 20:58 81 20 90 Nasal Cannula 5.0 11/07/19 15:59 97.6 Laboratory Data Labs 24H Laboratory Tests 2 11/07/19 16:25: Immature Granulocyte % (Auto) 1.4, Neutrophils (%) (Auto) 85.7H, Lymphocytes (%) (Auto) 6.5L, Monocytes (%) (Auto) 5.7H, Eosinophils (%) (Auto) 0.3, Basophils (%) (Auto) 0.4, Neutrophils # (Auto) 10.1H, Lymphocytes # (Auto) 0.8L, Monocytes # (Auto) 0.7, Eosinophils # (Auto) 0.0, Basophils # (Auto) 0.1, Nucleated Red Blood Cells % (auto) 0.0 11/07/19 16:26: POC Glucose (Misc Panel) 181H, POC Sodium (Misc Panel) 136, POC Potassium (Misc Panel) 4.1, POC Chloride (Misc Panel) 89L, POC Total CO2 (Misc Panel) 37.0H, POC Blood Urea Nitrogen (Misc Panel 23, POC Ionized Calcium (Misc Panel) 4.4L, POC Creatinine (Misc Panel) 1.2, POC Hematocrit (Misc Panel) 57.0H, Total Creatine Kinase 72, Creatine Kinase MB 3.1, Creatine Kinase MB Relative Index 4.31H, Tro ponin I 0.02, QL-Pft-B-Type Natriuretic Peptide 6702H 11/07/19 16:27: POC Total CO2 (Misc Panel) 38.0H, POC pH (Misc Panel) 7.420, POC Base Excess (Misc Panel) 11.0H, POC Saturated Percent O2 (Misc) 91L, POC pO2 (Misc Panel) 61.0L, POC pCO2 (Misc Panel) 55.4H, POC HCO3 (Misc Panel) 35.9H CBC/BMP Laboratory Tests 11/07/19 16:25 Microbiology Microbiology 11/07/19 Respiratory Virus Panel (PCR) ([facility]) - Final, Complete Assessment/Plan 69 yo man with with a history of COPD and bronchiectasis, a patient of Dr. Eze clark's who is on 2L O2 at baseline on steroids over the last 2 months and 1 month of Levaquin outpatient of Stenotrophomonas pneumonia who presented to the ED with worsening shortness of breath, worsening LE edema and hypoxemia and found to be in acute heart failure with volume overload as well as persistent pneumonia now switched him to Bactrim while the sputum is pending and placed on IV diuretics. Acute on chronic hypoxemic respiratory failure: 2/2 COPD exacerbation with ongoing Stenotrophomonas PNA as well as overt volume overload -supplemental O2 to target 88% -duonebs q6h scheduled, albuterol q4h PRN -antibiotics as discussed below for PNA -Solumedrol 80Q8H, s/p dex in the ED. Protonix 40 daily. -pulm consult order placed. To call Dr. Segura in the morning. -f/u sputum and respiratory viral panel Stenotrophomonas PNA: s/p 10d course, and then followed by 14d course that he had 3 days remaining of PO levaquin. -For now will start on empiric IV bactrim and reculture for sensitivities given worsening picture though volume seems to be playing a role -follow up sputum culture Volume overload with a history of HFpEF: per the patient, outpatient providers suspecting steroid induced fluid retention and have been titrating diuretics without much improvement -IV lasix 40Q8H, for target negative 2L per 24h -strict I/Os -TTE -EKG was non ischemic and troponin was negative and history without chest pain or palpitations. ASA 81 per home script -Telemetry Type 2 diabetes -hold oral antihyperglycemics and start SSI -consistent carb and 2g sodium diet -FSBG AC/HS -Hypoglycemia protocol Morbid obesity: concerned about the current decline in exercise tolerance as this will likely cause him to gain more weight from the sedentary life style. -diuresis, antibiotics, steroids and nebs as discussed above, and will order PT/OT -Discussed that he will benefit from referral to a bpm architect in the outpatient setting BPH: -continue finasteride DVT ppx: Heparin Dispo: PCU Plan / VTE VTE Prophylaxis Ordered?: Yes ERNESTO RAMIREZ MD Nov 08, 2019 00:13
[2019-11-08] MEDS: methylPREDNISolone INJ 125 MG/2 ML VIAL (J2930) IV SCH ×3 (04:05→21:06)
[2019-11-08] MEDS: FUROSEMIDE 40 MG/4 ML VIAL (J1940) IV SCH ×3 (04:05→21:06)
[2019-11-08] MEDS: HEPARIN SOD (PORCINE) 5000 UNITS/ML VIAL (J1644 PER 1000UNITS) SC SCH ×3 (06:09→21:05)
[2019-11-08 06:44] LABS: HEMATOCRIT 52.1 % (42.0-52.0); MEAN CORPUSCULAR HEMOGLOBIN 28.3 pg (27.0-33.0); MEAN CORPUSCULAR HGB CONC 30.7 g/dl (32.0-36.5); PLATELET COUNT, AUTOMATED 167 10^3/uL (150-450); RED BLOOD COUNT 5.66 10^6/uL (4.30-6.10); WHITE BLOOD COUNT 9.2 10^3/uL (4.0-10.0)
[2019-11-08 07:09] LABS: BLOOD UREA NITROGEN 20 MG/DL (7-18); CALCIUM LEVEL 8.6 MG/DL (8.8-10.2); CARBON DIOXIDE LEVEL 39 MEQ/L (21-32); CHLORIDE LEVEL 90 MEQ/L (98-107); CREATININE FOR GFR 1.26 MG/DL (0.70-1.30); GLOMERULAR FILTRATION RATE > 60.0 (>49); GLUCOSE, FASTING 274 MG/DL (70-100); POTASSIUM SERUM 3.7 MEQ/L (3.5-5.1); SODIUM LEVEL 136 MEQ/L (136-145)
[2019-11-08] MEDS: CO-ENZYME Q10 50 MG CAP PO SCH (09:16)
[2019-11-08] MEDS: VITAMIN D 1,000 INTERNATIONAL UNITS TABLET PO SCH (09:17)
[2019-11-08] MEDS: guaiFENesin ER 600 MG TAB PO SCH ×2 (09:18→21:05)
[2019-11-08] MEDS: FEXOFENADINE 60 MG TAB PO SCH (09:18)
[2019-11-08] MEDS: MULTIVITAMINS/MINERALS THERAP 1 TAB PO SCH ×2 (09:18→21:05)
[2019-11-08] MEDS: FINASTERIDE 5 MG TAB PO SCH (09:19)
[2019-11-08] MEDS: PANTOPRAZOLE 40MG TAB (PROTONIX) PO SCH (09:19)
[2019-11-08] MEDS: ASPIRIN 81 MG ENTERIC TAB PO SCH (09:19)
[2019-11-08 10:00] VITALS: BP 129/61
[2019-11-08] MEDS: IBUPROFEN 400 MG TAB PO PRN (10:18)
--- NOTE | 2019-11-08 10:43 | IPNPDOC ---
Subjective Date Seen The patient was seen on 11/08/19. Subjective Chief Complaint/HPI A little less SOB today but sats only 90s on 4L at rest. Drop into 80s with minimal exertion Constitutional: Denies: Chills, Fever Pulmonary: Reports: Dyspnea, Cough Cardiovascular: Reports: Orthopnea; Denies: Chest Pain, Palpitations Gastrointestinal: Denies: Nausea, Vomiting, Abdominal Pain, Diarrhea, Constipation Objective Physical Examination General Exam: Positive: Alert, Mild Distress (Dyspneic with exertion, but seems comfortable at rest) Eye Exam: Negative: Sclera icteric Chest Exam: Positive: Rales (bibasilar up to posterior midlungs L>R); Negative: Wheezing Heart Exam: Positive: Rate Normal, Regular Rhythm, Normal S1, Normal S2; Negative: Murmurs, Rubs Telemetry: Positive: No significant arrhythmia Abdomen Exam: Positive: Normal bowel sounds, Soft, Other (obese); Negative: Tenderness, Hepatospenomegaly Extremity Exam: Positive: Edema (2+ LE edema to knees); Negative: Tenderness Skin Exam: Negative: Lesion Neuro Exam: Positive: Normal Speech Psych Exam: Positive: Mental status NL, Mood NL, Oriented x 3 Assessment /Plan Problems (1) Infection due to Stenotrophomonas maltophilia Status: Acute Problem Text: 11/08 - Failed outpatient management with Levaquin po, steroids and usual chronic Oxygen with 2L NC Cont IV Bactrim Get pulmonary consult - spoke with Dr. Segura sputum 10/23/19: STENOTROPHOMONAS MALTOPHILIA QUANTITY OF GROWTH HEAVY FULL REPORT IN LAB NOTES (eCW and [facility]). NORMAL CASSANDRA PRESENT 1. STENOTROPHOMONAS MALTOPHILIA RX Route Dose M.I.C. ----- ----- --------- TRIMETHOPRIM/SULFAMETHOXAZOLE S PO Bactrim DS Bid <=20 S IV 160mg TMP & 800mg SMXq6h LEVOFLOXACIN S PO 250mg qd 1 S PO 500mg qd S IV 500mg qd (2) CHF (congestive heart failure) Status: Acute Problem Text: Good diuresis with IV Lasix Get echo Last one done 2014 showed normal LVEF, Grade 1 diastolic dysfx (3) Cirrhosis Problem Text: CT suggests Liver cirrhosis - NOT a KNOWN DIAGNOSIS per ecw notes Get Liver US and wkup further as outpatient (4) Pneumonia Status: Acute Problem Text: see above (5) COPD (chronic obstructive pulmonary disease) Status: Chronic Problem Text: cont nebs and IV Solumedrol - on chronic prednisone as outpatient (6) Chronic respiratory failure with hypoxia Status: Chronic Problem Text: chronic oxygen 2L at home Plan/VTE VTE Prophylaxis Ordered?: Yes Plan Therapy: PT VS, I&O, 24H, Fishbone Vital Signs/I&O Vital Signs Date Time Temp Pulse Resp B/P (MAP) Pulse Ox O2 Delivery O2 Flow Rate FiO2 11/08/19 09:16 97.0 88 16 90 11/08/19 09:15 129/71 (90) 11/08/19 06:31 Nasal Cannula 11/08/19 05:46 5.0 I&O- Last 24 Hours up to 6 AM 11/08/19 05:59 Output Total 1700 ml Balance -1700 ml Laboratory Data 24H LABS Laboratory Tests 2 11/07/19 16:25: Immature Granulocyte % (Auto) 1.4, Neutrophils (%) (Auto) 85.7H, Lymphocytes (%) (Auto) 6.5L, Monocytes (%) (Auto) 5.7H, Eosinophils (%) (Auto) 0.3, Basophils (%) (Auto) 0.4, Neutrophils # (Auto) 10.1H, Lymphocytes # (Auto) 0.8L, Monocytes # (Auto) 0.7, Eosinophils # (Auto) 0.0, Basophils # (Auto) 0.1, Nucleated Red Blood Cells % (auto) 0.0 11/07/19 16:26: POC Glucose (Misc Panel) 181H, POC Sodium (Misc Panel) 136, POC Potassium (Misc Panel) 4.1, POC Chloride (Misc Panel) 89L, POC Total CO2 (Misc Panel) 37.0H, POC Blood Urea Nitrogen (Misc Panel 23, POC Ionized Calcium (Misc Panel) 4.4L, POC Creatinine (Misc Panel) 1.2, POC Hematocrit (Misc Panel) 57.0H, Total Creatine Kinase 72, Creatine Kinase MB 3.1, Creatine Kinase MB Relative Index 4.31H, Troponin I 0.02, BN-Mtd-N-Type Natriuretic Peptide 6702H 11/07/19 16:27: POC Total CO2 (Misc Panel) 38.0H, POC pH (Misc Panel) 7.420, POC Base Excess (Misc Panel) 11.0H, POC Saturated Percent O2 (Misc) 91L, POC pO2 (Misc Panel) 61.0L, POC pCO2 (Misc Panel) 55.4H, POC HCO3 (Misc Panel) 35.9H 11/08/19 06:33: Nucleated Red Blood Cells % (auto) 0.0, Anion Gap 7L, Glomerular Filtration Rate > 60.0, Calcium Level 8.6L CBC/BMP Laboratory Tests 11/07/19 16:25 11/08/19 06:33 Microbiology Microbiology 11/07/19 Gram Stain, Received Pending 11/07/19 Sputum Culture, Received Pending 11/07/19 Respiratory Virus Panel (PCR) ([facility]) - Final, Complete JOSE RODAS PA-C Nov 08, 2019 10:43
[2019-11-08 11:29] LABS: FERRITIN 88 NG/ML (26-388)
[2019-11-08 11:49] LABS: HEPATITIS B SURFACE ANTIGEN NEGATIVE (NEGATIVE)
[2019-11-08 12:00] VITALS: BP 129/69
[2019-11-08] MEDS ORDERED: SLF 3 ML SYR IV PRN (12:15)
[2019-11-08 12:16] LABS: HEPATITIS C VIRUS ABY INDEX < 0.0 INDEX (<0.8)
[2019-11-08 12:17] LABS: HEPATITIS B CORE ANTIBODY IGM NEGATIVE (NEGATIVE)
[2019-11-08 12:18] LABS: HEPATITIS A ANTIBODY IGM NEGATIVE (NEGATIVE)
[2019-11-08] MEDS: SLF 3 ML SYR IV SCH ×2 (12:54→21:07)
--- NOTE | 2019-11-08 15:05 | REP ---
Upper quadrant abdominal ultrasound for cirrhosis: The the patient reportedly had a cholecystectomy and 1970. There is no intrahepatic or extrahepatic biliary duct dilatation. The common duct measures 4.5 mm in diameter. The hepatic parenchyma is diffusely heterogeneous compatible with diffuse hepatocellular disease. There are multiple hepatic calcifications, likely granulomas. The main portal vein measures 20.3 mm in diameter and is dilated. No hepatic masses are identified. The visualized areas of the pancreas are unremarkable. The right kidney is normal size measuring 11.8 x 6.2 x 5.9 cm. There is no right renal solid or cystic mass. There are no right renal calculi. There is no hydronephrosis. There is no right upper quadrant free fluid. Impression: The hepatic parenchyma is diffusely heterogeneous, compatible with hepatocellular disease. There are multiple hepatic calcifications compatible with granulomas. The portal vein is dilated measuring up to 20.3 mm, compatible with portal hypertension. No hepatic masses are identified. There is no ascites. Electronically Signed by Colin Contreras MD 11/08/2019 02:56 P
--- NOTE | 2019-11-08 15:31 | CR ---
DATE OF CONSULTATION: 11/08/2019 The patient is a 69-year-old male with advanced obstructive airways disease FEV-1 measured 0.72 liters in May of this year. This felt related to 90 pack years of cigarette smoking. He stopped his smoking habit in 2014. He is oxygen and has recently been steroid dependent and presented with increasing dyspnea to the emergency department, some cough, also fatigued. He was recently treated on outpatient basis for a Stenotrophomonas infection. At that time he was given levofloxacin and oral steroids, some improvement was noted, and he was kept on oral steroids. Since that time he has noted increasing extremity edema, worsening shortness of breath and fatigue. PAST MEDICAL HISTORY: His past medical history includes type 2 diabetes mellitus, obesity, obstructive lung disease. PAST SURGICAL HISTORY: His past surgeries include cholecystectomy, herniorrhaphy. MEDICATIONS PRIOR TO ADMISSION TO THE HOSPITAL: - nebulized albuterol as needed - 81 mg of aspirin a day - vitamin D - Federica - finasteride 40 mg with Lasix twice a day - glucosamine chondroitin - Mucinex 1200 twice a day - levofloxacin 500 mg a day - multivitamins - prednisone 10 mg every day - Advair 500/50 daily - Spiriva 18 mcg daily - coenzyme 10Q ALLERGIES: He has no known medication allergies. SOCIAL HISTORY: A 90 pack year smoker. He quit smoking in 2014. Does not regularly take alcohol and has supportive local family. FAMILY HISTORY: Was not found to contain any contributory information. REVIEW OF SYSTEMS: Constitutional: His appetite has been fair. Weight reasonably stable. HEENT: He has no impairment of vision, smell or hearing. Cardiovascular: He denies palpitations, typical anginal-type chest pain. He does admit to some symptoms suggesting orthopnea and paroxysmal nocturnal dyspnea. Does not admit to claudication. Pulmonary: See above. GI: There is no history of hepatitis or pancreatitis. His gallbladder has removed. : There is no frequency. He does note some occasions of nocturia. No history of dysuria or kidney stones. Endocrine: No history of thyroid disease. He has type 2 diabetes. Neuro: No history of stroke or seizure. Musculoskeletal: He has back pain, muscle aches and cramps. PHYSICAL EXAMINATION: On physical exam his vital signs are temperature 97, pulse rate 88, respirations 16, blood pressure 129/70. He is awake, alert and oriented. HEENT: Oral and nasal mucosa are pink. His posterior pharynx is not erythematous. There is no stridor of the tracheal. No adenopathy in the neck. Jugular veins are not able to be appreciated. Carotid upstroke is sluggish. No bruit. Heart: Sounds are regular without appreciable murmur. Breath sounds are diminished with some crepitant rales and wheezes in the bases bilaterally. Chest is otherwise symmetric increased in the AP diameter and moves symmetrically. Abdomen is soft and obese. There is a positive hepatojugular reflux n on pressure. The extremities show edema with 4 mm of pitting bilaterally. Pulses are diminished. DIAGNOSTIC STUDIES: Chest x-ray shows bibasilar infiltrates, possible edema. His white cell count of 9.2, hemoglobin 16, hematocrit 52, platelet count 167,000. Differential white cell count on admission showed 85.7 neutrophils. Electrolytes are sodium 136, potassium 3.7, chloride 90, CO2 39, BUN 20, creatinine 1.26, glucose was 274. Arterial blood gases on admission showed a pH of 7.42, pCO2 55, pO2 61 on supplemental oxygen. His BNP was 6702. PRIMARY IMPRESSIONS ARE: 1. Acute hypoxic hypercarbic respiratory failure. 2. Pulmonary edema. 3. Advanced obstructive airways disease. RECOMMENDATIONS: I agree completely with aggressive diuretic therapy and would consider repeating an echocardiogram. I will restart his long-acting bronchodilator therapy and change the inhaled corticosteroid to budesonide. Continue steroids for now. Once clinical response is seen we ill attempt to wean off the steroids if at all possible. Thank you for allowing me to consult with the care of this patient. If there are questions, please do not hesitate to contact me.
[2019-11-08 16:00] VITALS: BP 130/74
[2019-11-08] MEDS: SYMBICORT 160/4.5MCG INHALER 6GM INH SCH (19:43)
[2019-11-08 20:00] VITALS: BP 121/79
--- NOTE | 2019-11-08 20:21 | ECGEPIP ---
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
[2019-11-09] VITALS (9 sets, daily range): BP systolic 108–138; BP diastolic 68–77; O2SAT 88–89
[2019-11-09] MEDS: IPRATROPIUM 0.5MG/ALBUTEROL 2.5MG INH SOL UD 3ML (DUONEB)(J7620) NEB SCH ×4 (01:53→20:00)
[2019-11-09] MEDS: SLF 3 ML SYR IV SCH ×3 (05:17→21:09)
[2019-11-09] MEDS: HEPARIN SOD (PORCINE) 5000 UNITS/ML VIAL (J1644 PER 1000UNITS) SC SCH ×3 (05:17→21:08)
[2019-11-09] MEDS: methylPREDNISolone INJ 125 MG/2 ML VIAL (J2930) IV SCH ×3 (05:18→21:09)
[2019-11-09] MEDS: FUROSEMIDE 40 MG/4 ML VIAL (J1940) IV SCH ×2 (05:18→11:47)
[2019-11-09 05:29] LABS: HEMATOCRIT 44.6 % (42.0-52.0); HEMOGLOBIN 14.2 g/dl (13.5-17.5); MEAN CORPUSCULAR HEMOGLOBIN 28.9 pg (27.0-33.0); MEAN CORPUSCULAR HGB CONC 31.8 g/dl (32.0-36.5); MEAN CORPUSCULAR VOLUME 90.7 fl (80.0-96.0); PLATELET COUNT, AUTOMATED 156 10^3/uL (150-450); RED BLOOD COUNT 4.92 10^6/uL (4.30-6.10); WHITE BLOOD COUNT 12.6 10^3/uL (4.0-10.0)
[2019-11-09 05:50] LABS: BLOOD UREA NITROGEN 22 MG/DL (7-18); CALCIUM LEVEL 8.7 MG/DL (8.8-10.2); CARBON DIOXIDE LEVEL 38 MEQ/L (21-32); CHLORIDE LEVEL 91 MEQ/L (98-107); CREATININE FOR GFR 1.17 MG/DL (0.70-1.30); GLOMERULAR FILTRATION RATE > 60.0 (>49); GLUCOSE, FASTING 188 MG/DL (70-100); POTASSIUM SERUM 4.1 MEQ/L (3.5-5.1); SODIUM LEVEL 134 MEQ/L (136-145)
[2019-11-09] MEDS: TIOTROPIUM INHALER/CAPSULE (SPIRIVA) INH SCH (07:55)
[2019-11-09] MEDS: SYMBICORT 160/4.5MCG INHALER 6GM INH SCH ×2 (07:56→20:13)
--- NOTE | 2019-11-09 07:59 | ECHO ---
DATE OF PROCEDURE: 11/08/2019 DATE OF : 1950 AGE: 69 REFERRING PROVIDER: Dr. Johnna Cervantes PATIENT LOCATION: Room 3211 REASON FOR THE STUDY: Heart failure, unspecified. 2-D MEASUREMENTS: IVS: 1.2 cm LV: 4.3 cm LVPW: 1.2 cm LA: 3.4 cm Aorta: 3.5 cm RV: 4.2 cm DOPPLER MEASUREMENTS: Peak velocity across the aortic valve: 1.1 m/sec Peak velocity across the LVOT: 0.87 m/sec Mitral E: 0.69, Mitral A: 0.75 with a ratio of 0.9 Maximum tricuspid valve velocity: 3.3 m/sec 2-D COMMENTS: 1. Normal left ventricular size, wall thickness, and low normal global left ventricular systolic function. The estimated ventricular systolic ejection fraction is 50-55%. The anteroseptum appeared to be dyskinetic. 2. Dilated right atrium and right ventricle. The right ventricular free wall seems to be hypokinetic. 3. The atrial septum did not to reveal any presence of defect or shunt. 4. Normal aortic root. 5. A small pericardial effusion was noted, no evidence of cardiac tamponade. 6. Mildly calcified aortic valve with normal leaflet excursion. Mildly calcified mitral annulus with normal anterior mitral valve leaflet motion. Normal tricuspid valve and pulmonic valve. The proximal pulmonary artery branches were not well visualized. 7. The inferior vena cava was dilated at 2.6 cm, central venous pressure might be elevated. DOPPLER: It detects moderate tricuspid regurgitation and trace pulmonic regurgitation. The calculated pulmonary artery systolic pressure varies between 40-50 mmHg. Abnormal relaxation pattern was noted across the mitral valve leaflets as well as the mitral valve annulus consistent with features of grade 1 left ventricular diastolic dysfunction. IMPRESSION: 1. Low normal global left ventricular systolic function with a dyskinetic septum. 2. There are some features of left ventricular diastolic dysfunction manifested by abnormal relaxation, grade 1. 3. Aortic valve sclerosis without stenosis or aortic regurgitation. 4. Isolated mitral annulus calcification. 5. Moderate tricuspid regurgitation with moderate pulmonary hypertension. The right heart chambers were markedly dilated with evidence of right ventricular systolic dysfunction. 6. There are findings consistent with an elevated central venous pressure, the inferior vena cava was mildly enlarged. 7. A small pericardial effusion was noted, no evidence of cardiac tamponade.
[2019-11-09] MEDS: guaiFENesin ER 600 MG TAB PO SCH ×2 (08:15→21:09)
[2019-11-09] MEDS: FEXOFENADINE 60 MG TAB PO SCH (08:16)
[2019-11-09] MEDS: PANTOPRAZOLE 40MG TAB (PROTONIX) PO SCH (08:16)
[2019-11-09] MEDS: VITAMIN D 1,000 INTERNATIONAL UNITS TABLET PO SCH (08:16)
[2019-11-09] MEDS: MULTIVITAMINS/MINERALS THERAP 1 TAB PO SCH ×2 (08:16→21:09)
[2019-11-09] MEDS: ASPIRIN 81 MG ENTERIC TAB PO SCH (08:16)
[2019-11-09] MEDS: FINASTERIDE 5 MG TAB PO SCH (08:17)
[2019-11-09] MEDS: TRIMETHOPRIM/SULFAMETHOXAZOLE 500 MG in D5W 500 ML IV SCH ×3 (08:17→23:52)
--- NOTE | 2019-11-09 09:21 | IPNPDOC ---
Subjective Date Seen The patient was seen on 11/09/19. Subjective Chief Complaint/HPI No new problems. observes that his O2 sat drops to low 80's when up to BR. Constitutional: Denies: Chills ENT: Denies: Head Aches Pulmonary: Denies: Pleuritic Chest Pain Cardiovascular: Reports: Edema (improved since admission); Denies: Chest Pain, Palpitations Gastrointestinal: Denies: Nausea, Abdominal Pain Hematologic: Denies: Bruising Endocrine: Denies: Polydipsia Neurological: Denies: Weakness, Change in speech, Confusion Psych: Reports: Mood Normal Objective Physical Examination General Exam: Positive: Alert, Mild Distress (Dyspneic with exertion, but seems comfortable at rest) Eye Exam: Negative: Sclera icteric Chest Exam: Positive: Rales (bibasilar up to posterior midlungs L>R), Wheezing (expiratory wheezes noted midlung field to base.) Heart Exam: Positive: Rate Normal, Regular Rhythm, Normal S1, Normal S2; Negative: Murmurs, Rubs Telemetry: Positive: No significant arrhythmia Abdomen Exam: Positive: Normal bowel sounds, Soft, Other (obese); Negative: Tenderness, Hepatospenomegaly Extremity Exam: Positive: Edema (1+ edema LE bilaterally); Negative: Tenderness Skin Exam: Negative: Lesion Neuro Exam: Positive: Normal Speech Psych Exam: Positive: Mental status NL, Mood NL, Oriented x 3 Assessment /Plan Problems (1) Infection due to Stenotrophomonas maltophilia Status: Acute Problem Text: 11/08 - Failed outpatient management with Levaquin po, steroids and usual chronic Oxygen with 2L NC Cont IV Bactrim Get pulmonary consult - spoke with Dr. Segura sputum 10/23/19: STENOTROPHOMONAS MALTOPHILIA QUANTITY OF GROWTH HEAVY FULL REPORT IN LAB NOTES (eCW and Medent). NORMAL CASSANDRA PRESENT 1. STENOTROPHOMONAS MALTOPHILIA RX Route Dose M.I.C. ----- ----- --------- TRIMETHOPRIM/SULFAMETHOXAZOLE S PO Bactrim DS Bid <=20 S IV 160mg TMP & 800mg SMXq6h LEVOFLOXACIN S PO 250mg qd 1 S PO 500mg qd S IV 500mg qd (2) CHF (congestive heart failure) Status: Acute Problem Text: 11/09: Right heart failure observed with low normal EF, diastolic dysfunction confirmed. Good diuresis with IV Lasix Get echo Last one done 2014 showed normal LVEF, Grade 1 diastolic dysfx (3) Cirrhosis Problem Text: 11/09: Etiology likely WADDELL associated with obesity and DM CT suggests Liver cirrhosis - NOT a KNOWN DIAGNOSIS per ecw notes Get Liver US and wkup further as outpatient (4) Pneumonia Status: Acute Problem Text: see above (5) COPD (chronic obstructive pulmonary disease) Status: Chronic Problem Text: 11/[address] Segura's assistance. cont nebs and IV Solumedrol - on chronic prednisone as outpatient (6) Chronic respiratory failure with hypoxia Status: Chronic Problem Text: chronic oxygen 2L at home Plan/VTE VTE Prophylaxis Ordered?: Yes Plan Therapy: PT Anticipated Discharge: Home VS, I&O, 24H, Fishbone Vital Signs/I&O Vital Signs Date Time Temp Pulse Resp B/P (MAP) Pulse Ox O2 Delivery O2 Flow Rate FiO2 11/09/19 08:00 97.5 82 20 116/70 (85) 90 Nasal Cannula 4.0 I&O- Last 24 Hours up to 6 AM 11/09/19 05:59 Intake Total 1481.25 ml Output Total 1445 ml Balance 36.25 ml Laboratory Data 24H LABS Laboratory Tests 2 11/08/19 11:04: 11/09/19 04:55: Nucleated Red Blood Cells % (auto) 0.0, Anion Gap 5L, Glomerular Filtration Rate > 60.0, Calcium Level 8.7L CBC/BMP Laboratory Tests 11/09/19 04:55 Microbiology Microbiology 11/07/19 Gram Stain - Final, Resulted 11/07/19 Sputum Culture, Resulted Pending 11/07/19 Respiratory Virus Panel (PCR) ([facility]) - Final, Complete Anup Gant MD Nov 09, 2019 09:21
[2019-11-09] MEDS: IBUPROFEN 400 MG TAB PO PRN (11:03)
[2019-11-09] MEDS: CO-ENZYME Q10 50 MG CAP PO SCH (11:48)
[2019-11-09] MEDS ORDERED: ONDANSETRON 4MG/2ML VIAL (J2405) IV PRN (14:45)
[2019-11-10] VITALS (7 sets, daily range): BP systolic 112–138; BP diastolic 72–90; O2SAT 91
[2019-11-10 00:06] LABS: ANA (HEP2) Negative (.); ANTI-MITOCHONDRIAL ANTIBODY <20.0 Units (0.0-20.0)
[2019-11-10] MEDS: IPRATROPIUM 0.5MG/ALBUTEROL 2.5MG INH SOL UD 3ML (DUONEB)(J7620) NEB SCH ×4 (02:54→20:13)
[2019-11-10] MEDS: methylPREDNISolone INJ 125 MG/2 ML VIAL (J2930) IV SCH ×2 (04:53→15:51)
[2019-11-10] MEDS: SLF 3 ML SYR IV SCH ×3 (04:54→20:49)
[2019-11-10] MEDS: HEPARIN SOD (PORCINE) 5000 UNITS/ML VIAL (J1644 PER 1000UNITS) SC SCH ×3 (04:54→20:48)
[2019-11-10 04:58] LABS: HEMATOCRIT 43.9 % (42.0-52.0); HEMOGLOBIN 14.2 g/dl (13.5-17.5); MEAN CORPUSCULAR HEMOGLOBIN 29.1 pg (27.0-33.0); MEAN CORPUSCULAR HGB CONC 32.3 g/dl (32.0-36.5); PLATELET COUNT, AUTOMATED 137 10^3/uL (150-450); RED BLOOD COUNT 4.88 10^6/uL (4.30-6.10); WHITE BLOOD COUNT 11.2 10^3/uL (4.0-10.0)
[2019-11-10 05:32] LABS: ALBUMIN 2.6 GM/DL (3.2-5.2); BILIRUBIN,TOTAL 0.3 MG/DL (0.2-1.0); CALCIUM LEVEL 8.5 MG/DL (8.8-10.2); CREATININE FOR GFR 1.29 MG/DL (0.70-1.30); POTASSIUM SERUM 4.3 MEQ/L (3.5-5.1); TOTAL PROTEIN 6.5 GM/DL (6.4-8.2)
[2019-11-10] MEDS: TIOTROPIUM INHALER/CAPSULE (SPIRIVA) INH SCH (07:47)
[2019-11-10] MEDS: SYMBICORT 160/4.5MCG INHALER 6GM INH SCH ×2 (07:47→20:13)
[2019-11-10] MEDS: guaiFENesin ER 600 MG TAB PO SCH ×2 (08:19→20:48)
[2019-11-10] MEDS: MULTIVITAMINS/MINERALS THERAP 1 TAB PO SCH ×2 (08:19→20:48)
[2019-11-10] MEDS: CO-ENZYME Q10 50 MG CAP PO SCH (08:20)
[2019-11-10] MEDS: PANTOPRAZOLE 40MG TAB (PROTONIX) PO SCH (08:20)
[2019-11-10] MEDS: FEXOFENADINE 60 MG TAB PO SCH (08:20)
[2019-11-10] MEDS: ASPIRIN 81 MG ENTERIC TAB PO SCH (08:20)
[2019-11-10] MEDS: VITAMIN D 1,000 INTERNATIONAL UNITS TABLET PO SCH (08:20)
[2019-11-10] MEDS: FINASTERIDE 5 MG TAB PO SCH (08:20)
[2019-11-10] MEDS: TRIMETHOPRIM/SULFAMETHOXAZOLE 500 MG in D5W 500 ML IV SCH (08:21)
[2019-11-10] MEDS ORDERED: FUROSEMIDE 40 MG TAB PO SCH (09:00)
--- NOTE | 2019-11-10 10:12 | IPNPDOC ---
Subjective Date Seen The patient was seen on 11/10/19. Subjective Chief Complaint/HPI tired from poor sleep. no problem with fevers, chills. Constitutional: Denies: Chills ENT: Denies: Head Aches Pulmonary: Reports: Dyspnea; Denies: Pleuritic Chest Pain Cardiovascular: Denies: Chest Pain, Palpitations Gastrointestinal: Denies: Nausea, Vomiting Hematologic: Denies: Bruising Neurological: Denies: Weakness, Numbness Objective Physical Examination General Exam: Positive: Alert, Mild Distress (Dyspneic with exertion, but seems comfortable at rest) Eye Exam: Negative: Sclera icteric Neck Exam: Negative: thyromegaly Chest Exam: Positive: Rales (bibasilar rales, expiratory rhonchi but better air flow and less noise than noted yesterday.), Wheezing (bibasilar expiratory wheezes are less than yesterday.) Heart Exam: Positive: Rate Normal, Regular Rhythm, Normal S1, Normal S2; Negative: Murmurs, Rubs Telemetry: Positive: No significant arrhythmia Abdomen Exam: Positive: Normal bowel sounds, Soft, Other (obese); Negative: Tenderness, Hepatospenomegaly Extremity Exam: Positive: Edema (1+ edema LE bilaterally); Negative: Tenderness Skin Exam: Negative: Lesion Neuro Exam: Positive: Normal Speech Psych Exam: Positive: Mental status NL, Mood NL, Oriented x 3 Assessment /Plan Problems (1) Infection due to Stenotrophomonas maltophilia Status: Acute Problem Text: 11/10: will change to po bactrim to reduce fluid admin and po admin of this med is not therapeutically inferior to IV. 11/08 - Failed outpatient management with Levaquin po, steroids and usual chronic Oxygen with 2L NC Cont IV Bactrim Get pulmonary consult - spoke with Dr. Segura sputum 10/23/19: STENOTROPHOMONAS MALTOPHILIA QUANTITY OF GROWTH HEAVY FULL REPORT IN LAB NOTES (eCW and Med[facility]). NORMAL CASSANDRA PRESENT 1. STENOTROPHOMONAS MALTOPHILIA RX Route Dose M.I.C. ----- ----- --------- TRIMETHOPRIM/SULFAMETHOXAZOLE S PO Bactrim DS Bid <=20 S IV 160mg TMP & 800mg SMXq6h LEVOFLOXACIN S PO 250mg qd 1 S PO 500mg qd S IV 500mg qd (2) CHF (congestive heart failure) Status: Acute Problem Text: 11/10 felt dizzy last evening to IV lasix stopped. will continue diuresis with po regimen. 11/09: Right heart failure observed with low normal EF, diastolic dysfunction confirmed. Good diuresis with IV Lasix Get echo Last one done 2014 showed normal LVEF, Grade 1 diastolic dysfx (3) Cirrhosis Problem Text: 11/09: Etiology likely WADDELL associated with obesity and DM CT suggests Liver cirrhosis - NOT a KNOWN DIAGNOSIS per ecw notes Get Liver US and wkup further as outpatient (4) Pneumonia Status: Acute Problem Text: see above (5) COPD (chronic obstructive pulmonary disease) Status: Chronic Problem Text: 11/[address] Segura's assistance. cont nebs and IV Solumedrol - on chronic prednisone as outpatient (6) Chronic respiratory failure with hypoxia Status: Chronic Problem Text: chronic oxygen 2L at home Plan/VTE VTE Prophylaxis Ordered?: Yes Plan Therapy: PT Anticipated Discharge: Home VS, I&O, 24H, [facility] Vital Signs/I&O Vital Signs Date Time Temp Pulse Resp B/P (MAP) Pulse Ox O2 Delivery O2 Flow Rate FiO2 11/10/19 08:00 4.0 11/10/19 08:00 97.2 79 18 138/90 (106) 90 Nasal Cannula 11/09/19 20:13 36 I&O- Last 24 Hours up to 6 AM 11/10/19 06:00 Intake Total 1831.25 ml Output Total 2050 ml Balance -218.75 ml Laboratory Data 24H LABS Laboratory Tests 2 11/10/19 04:47: Nucleated Red Blood Cells % (auto) 0.0, Anion Gap 2L, Glomerular Filtration Rate 59.0, Calcium Level 8.5L, Total Bilirubin 0.3, Aspartate Amino Transf (AST/SGOT) 17, Alanine Aminotransferase (ALT/SGPT) 23, Alkaline Phosphatase 56, Ammonia < 10, Total Protein 6.5, Albumin 2.6L, Albumin/Globulin Ratio 0.67L CBC/BMP Laboratory Tests 11/10/19 04:47 Microbiology Microbiology 11/07/19 Gram Stain - Final, Complete 11/07/19 Sputum Culture - Final, Complete Stenotrophomonas Maltophilia 11/07/19 Respiratory Virus Panel (PCR) ([facility]) - Final, Complete Gant,Anup D MD Nov 10, 2019 10:12
--- NOTE | 2019-11-10 14:53 | REP ---
CHEST PA AND LATERAL: 11/10/2019. Clinical history: COPD, follow-up pneumonia. Comparison: CT angio, chest x-ray 11/07/2019. Findings: Lung singh remain hyperinflated with flattened diaphragms. Underlying diffuse interstitial fibrosis. Emphysematous and fibrotic changes mid and upper lung zones. Heavier fibrotic changes peripherally in the left lower lobe and deep sulcus with linear scarring and some patchy infiltrates in the right base with underlying scarring and lateral pleural thickening. There is cardiomegaly with left atrial and ventricular enlargement. There is prominent pulmonary artery hypertension as on CT consistent with COPD. There is venous hypertension without serena edema or definite effusion. Impression: 1. Stable chest findings of extensive changes of COPD, emphysematous changes, pulmonary artery hypertension, patchy basilar infiltrates and lateral pleural thickening. No gross effusion or serena edema. Electronically Signed by Crow Parisi MD 11/10/2019 08:33 P
[2019-11-10] MEDS: FUROSEMIDE 80 MG TAB PO SCH (15:51)
[2019-11-10] MEDS: IBUPROFEN 400 MG TAB PO PRN (15:52)
[2019-11-10] MEDS ORDERED: BACTRIM 160MG/800MG DS TAB As Ordered ONE (20:44)
[2019-11-10] MEDS: BACTRIM 160MG/800MG DS TAB PO SCH (20:48)
[2019-11-10] MEDS ORDERED: BACTRIM 160MG/800MG DS TAB PO SCH (21:00)
[2019-11-11] VITALS: BP 114/71
[2019-11-11] MEDS: IPRATROPIUM 0.5MG/ALBUTEROL 2.5MG INH SOL UD 3ML (DUONEB)(J7620) NEB SCH ×4 (02:21→20:00)
[2019-11-11 04:00] VITALS: BP 111/71
[2019-11-11] MEDS: HEPARIN SOD (PORCINE) 5000 UNITS/ML VIAL (J1644 PER 1000UNITS) SC SCH ×3 (04:52→21:03)
[2019-11-11] MEDS: methylPREDNISolone INJ 125 MG/2 ML VIAL (J2930) IV SCH (04:53)
[2019-11-11] MEDS: SLF 3 ML SYR IV SCH ×3 (04:54→21:03)
[2019-11-11 05:52] LABS: HEMOGLOBIN 14.8 g/dl (13.5-17.5); MEAN CORPUSCULAR HGB CONC 30.8 g/dl (32.0-36.5); MEAN CORPUSCULAR VOLUME 90.9 fl (80.0-96.0); PLATELET COUNT, AUTOMATED 139 10^3/uL (150-450); RED BLOOD COUNT 5.28 10^6/uL (4.30-6.10); WHITE BLOOD COUNT 10.4 10^3/uL (4.0-10.0)
[2019-11-11 06:07] LABS: CALCIUM LEVEL 8.3 MG/DL (8.8-10.2); CREATININE FOR GFR 1.32 MG/DL (0.70-1.30); GLOMERULAR FILTRATION RATE 57.4 (>49); POTASSIUM SERUM 4.2 MEQ/L (3.5-5.1)
[2019-11-11 07:38] VITALS: BP 134/82
[2019-11-11] MEDS: IBUPROFEN 400 MG TAB PO PRN (07:59)
[2019-11-11] MEDS: guaiFENesin ER 600 MG TAB PO SCH ×2 (08:00→20:27)
[2019-11-11] MEDS: VITAMIN D 1,000 INTERNATIONAL UNITS TABLET PO SCH (08:01)
[2019-11-11] MEDS: PANTOPRAZOLE 40MG TAB (PROTONIX) PO SCH (08:01)
[2019-11-11] MEDS: BACTRIM 160MG/800MG DS TAB PO SCH ×2 (08:01→20:27)
[2019-11-11] MEDS: MULTIVITAMINS/MINERALS THERAP 1 TAB PO SCH ×2 (08:01→20:27)
[2019-11-11] MEDS: FUROSEMIDE 80 MG TAB PO SCH ×2 (08:01→17:46)
[2019-11-11] MEDS: CO-ENZYME Q10 50 MG CAP PO SCH (08:02)
[2019-11-11] MEDS: FINASTERIDE 5 MG TAB PO SCH (08:02)
[2019-11-11] MEDS: ASPIRIN 81 MG ENTERIC TAB PO SCH (08:03)
[2019-11-11] MEDS: FEXOFENADINE 60 MG TAB PO SCH (08:03)
--- NOTE | 2019-11-11 08:28 | IPN ---
DATE: 11/09/2019 PULMONARY CRITICAL CARE SERVICE: The patient is seen in the progressive care unit. He feels somewhat better today, less dyspneic with activity. His temperature is 97, pulse rate is 87, respirations 20, blood pressure 116/70. Intake and output for the past 24 hours: 950 in, 1820 out, negative 870 mL. He is not in acute distress. His oral mucosa is pink. Dentition is fair. Heart sounds are regular without appreciable murmur. Breath sounds are diminished. There is diffuse wheezing bilaterally. Expiratory phase is prolonged. Chest is symmetric, increased in its anteroposterior (AP) diameter. Abdomen is soft and extremities show edema. On review of medications, this is day number two of trimethoprim sulfamethoxazole. He is receiving Solu-Medrol 80 mg every eight hours, DuoNebs, Spiriva, and Symbicort. DIAGNOSTIC STUDIES: His sodium is 134, potassium 4.1, chloride 91, CO2 38, BUN 22, creatinine 1.12, glucose 188. White cell count is 12.5, hemoglobin 14.2, hematocrit 44.6, platelet count 156,000. His BNP on admission was 6.7 thousand. His sputum shows few white cells. He does have a history of Stenotrophomonas. IMPRESSION: 1. Acute exacerbation of obstructive lung disease. He is now receiving Symbicort and Spiriva with nebulized therapy. I will continue his steroids at the current dose for today given his persistent wheezing. 2. Pulmonary edema. He is responding well to diuretics.
[2019-11-11] MEDS: TIOTROPIUM INHALER/CAPSULE (SPIRIVA) INH SCH (08:56)
[2019-11-11] MEDS: SYMBICORT 160/4.5MCG INHALER 6GM INH SCH ×2 (08:56→20:46)
--- NOTE | 2019-11-11 09:15 | IPNPDOC ---
Subjective Date Seen The patient was seen on 11/11/19. Subjective Chief Complaint/HPI Pt this morning states that he is feeling well. His legs are still pretty swollen and he states that his breathing is not close to baseline, he has been struggling with this for the last couple of months as he had some home construction going on and was home during the early stages of this when there was a great deal of dust. General: Denies: Fatigue Constitutional: Denies: Chills, Fever Skin: Denies: Rash Pulmonary: Reports: Dyspnea, Cough Cardiovascular: Reports: Edema; Denies: Chest Pain, Palpitations Gastrointestinal: Denies: Nausea, Vomiting, Abdominal Pain, Diarrhea Neurological: Reports: Weakness Psych: Reports: Mood Normal Objective Physical Examination General Exam: Positive: Alert, No Acute Distress; Negative: Mild Distress Eye Exam: Negative: Sclera icteric ENT Exam: Positive: Mucous membr. moist/pink Neck Exam: Negative: thyromegaly Chest Exam: Positive: Rales (Bibasilar rales), Wheezing (bibasilar expiratory wheezes) Heart Exam: Positive: Rate Normal, Regular Rhythm, Normal S1, Normal S2; Negative: Murmurs, Rubs Telemetry: Positive: No significant arrhythmia Abdomen Exam: Positive: Normal bowel sounds, Soft, Other (obese); Negative: Tenderness, Hepatospenomegaly Extremity Exam: Positive: Edema (2+ edema LE bilaterally); Negative: Tenderness Skin Exam: Negative: Lesion Neuro Exam: Positive: Normal Speech Psych Exam: Positive: Mental status NL, Mood NL, Oriented x 3 Assessment /Plan Problems (1) Infection due to Stenotrophomonas maltophilia Status: Acute Problem Text: D4 TMP/SMX obvious concern that TMP/SMX is subtherapeutic (goal TMP 15 mg/kg/D; therefore, even c IBW 85 (currently AW 106 kg); goal xdms=[id number]. Currently po 320. (CC 82, plan reduce dose 50% if <30) favor chronic colonization 2 immunosuppression 2 chronic pred 10 Contingency: double TMP/SMX dose-CCR for now given increasing cr 11/08 - Failed outpatient management with levo x 1M?, steroids and usual chronic Oxygen with 2L NC Cont IV Bactrim Get pulmonary consult - spoke with Dr. Segura sputum 10/23/19, 11/07/19: STENOTROPHOMONAS MALTOPHILIA QUANTITY OF GROWTH HEAVY FULL REPORT IN LAB NOTES (eCW and Medent). NORMAL CASSANDRA PRESENT 1. STENOTROPHOMONAS MALTOPHILIA RX Route Dose M.I.C. ----- ----- --------- TRIMETHOPRIM/SULFAMETHOXAZOLE S PO Bactrim DS Bid <=20 S IV 160mg TMP & 800mg SMXq6h LEVOFLOXACIN S PO 250mg qd 1 S PO 500mg qd S IV 500mg qd (2) CKD stage G3a/A1, GFR 45-59 and albumin creatinine ratio <30 mg/g Status: Chronic Response to Treatment: Stable Problem Text: baseline cr 1.2 caution on fur, TMP/SMX (3) CHF (congestive heart failure) Status: Acute Problem Text: HD fur 40 BID NN 5.8L since admission Contingency: fur gtt 11/11 Lasix increased last night from 40 mg po BID to 80 mg BID, enc FELIPA diet, not concerned about fluid intake at this time, his states that he doens't really drink that much. 11/10 felt dizzy last evening to IV lasix stopped. will continue diuresis with po regimen. 11/09: Right heart failure observed with low normal EF, diastolic dysfunction confirmed. Good diuresis with IV Lasix Get echo Last one done 2014 showed normal LVEF, Grade 1 diastolic dysfx (4) Cirrhosis Problem Text: 11/09: Etiology likely WADDELL associated with obesity and DM CT suggests Liver cirrhosis - NOT a KNOWN DIAGNOSIS per ecw notes Get Liver US and wkup further as outpatient (5) Pneumonia Status: Acute Problem Text: see above (6) COPD (chronic obstructive pulmonary disease) Status: Chronic Problem Text: 11/[address] Segura's assistance. cont nebs and IV Solumedrol - on chronic prednisone as outpatient (7) Chronic respiratory failure with hypoxia Status: Chronic Problem Text: chronic oxygen 2L at home (8) Physical deconditioning Status: Chronic Response to Treatment: Stable Problem Text: 11/11 NS to DC home (plan home) Plan/VTE VTE Prophylaxis Ordered?: Yes Plan Therapy: PT Anticipated Discharge: Home VS, I&O, 24H, Fishbone Vital Signs/I&O Vital Signs Date Time Temp Pulse Resp B/P (MAP) Pulse Ox O2 Delivery O2 Flow Rate FiO2 11/11/19 08:07 4.0 11/11/19 07:38 97.3 67 18 134/82 (99) 91 Nasal Cannula 11/10/19 20:13 36 I&O- Last 24 Hours up to 6 AM 11/11/19 06:00 Intake Total 0 ml Output Total 2400 ml Balance -2400 ml Laboratory Data 24H LABS Laboratory Tests 2 11/11/19 05:07: Nucleated Red Blood Cells % (auto) 0.0, Anion Gap 3L, Glomerular Filtration Rate 57.4, Calcium Level 8.3L CBC/BMP Laboratory Tests 11/11/19 05:07 Microbiology Microbiology 11/07/19 Gram Stain - Final, Complete 11/07/19 Sputum Culture - Final, Complete Stenotrophomonas Maltophilia 11/07/19 Respiratory Virus Panel (PCR) ([facility]) - Final, Complete SUE GABRIEL PA-C Nov 11, 2019 09:15 Fredis Galvez M.D. Nov 11, 2019 15:27
[2019-11-11 11:25] VITALS: BP 153/83
--- NOTE | 2019-11-11 14:55 | IPN ---
DATE: 11/11/2019 NOTE: Mr. Garcia feels better this morning. He has still done limited activity but what he does do he feels less short of breath. His lower extremity edema is still present. He feels it is better but his family does not necessarily agree. No chest pain or pressure. No paroxysmal nocturnal dyspnea, orthopnea. No nausea or emesis. Mr. 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 He admits that he has not done much activity for some time. He also admits that he has not been keeping to his fluid restriction and diet. He had some construction done on his house where it was totally gutted so he has been living in a hotel or with his daughter and has not been able to eat properly. He also had some increased intake over the holidays. OBJECTIVE: PHYSICAL EXAMINATION General: Mr. Garcia is lying in bed in no acute distress. He completes full sentences. No cough throughout the evaluation. He is able to easily move to a sitting position. Temperature 97.9 with a maximum temperature (t-max) of 98.2. Pulse 79, respiratory rate 18, blood pressure 153/83 with a MAP of 106, SPO2 90% on 4 liters by nasal cannula. HEENT: Anicteric. Nares: Patent bilaterally, moist mucosa. Oropharynx clear. No lesions. Poor dentition. Lungs: Symmetric excursion, generalized diminished air entry with crackles at the bases bilaterally. No rhonchi or wheezing. Prolonged expiratory phase. No accessory muscle usage or retractions. Chest: Increased AP diameter. Cardiovascular: Regular rate and rhythm with a normal S1, S2, no murmur, rub or gallop appreciated. Abdomen: Positive bowel sounds. Soft, nondistended, nontender. No hepatosplenomegaly or masses appreciated. Extremities: 1 to 2+ pretibial edema into the mid shins bilaterally. Without clubbing or cyanosis. Palpable pedal pulses bilaterally. LABORATORY DATA CBC shows a hemoglobin of 14.8, hematocrit 48, platelet count 139,000, white blood cell count 10,400. Chemistry shows sodium 133, potassium 4.2, chloride 89, bicarbonate 41, anion gap 3, BUN 30, creatinine 1.3, glucose 186, calcium 8.3. IMPRESSION: 1. Chronic obstructive pulmonary disease (COPD) exacerbation. He had a heavy growth of Stenotrophomonas maltophilia on sputum that was from 10/23/2019. It also regrew on a culture from 11/07/2019 with the growth remaining heavy. 2. Congestive heart failure (CHF) exacerbation. RECOMMENDATIONS: 1. Agree with continuing diuresis, as diuresis has appeared to clinically make the most effect. 2. We will continue with bronchodilators and the IC/LABA agent, as well as the LAMA. 3. We will change his Solu-Medrol to oral prednisone. Hopefully, we will be able to wean that down to his baseline 10 mg over the next 10 days to 2 weeks. MTDD
[2019-11-11 15:53] VITALS: BP 151/83
--- NOTE | 2019-11-11 18:59 | IPN ---
DATE: 11/10/2019 PULMONARY CRITICAL CARE SERVICE: The patient is seen in the progressive care unit. This is hospital day #3. He is feeling somewhat better, had one episode of dizziness earlier. His temperature is 97.7, pulse rate 78, respirations 18, blood pressure 138/90. His saturations are 90% on 4 liters. Intake and output for the past 24 hours: 1351 in, 2450 out. Since midnight 1011 in, 750 out. He is awake, alert, oriented. His oral mucosa are pink. Jugular veins 2 cm distended. Carotid upstroke sluggish. Heart sounds regular. Breath sounds diminished. There is wheezing, but less so today. Abdomen is soft. Extremities continue to show some edema, albeit less than in days past. DIAGNOSTIC STUDIES: Chest x-ray was just performed and continues to show some interstitial edema. His sodium was 131, potassium 4.3, chloride 89, CO2 40, BUN 26, creatinine 1.29, glucose 212. White cell count is 11.2, hemoglobin 14.2, hematocrit 43.9, platelet count 127,000, AST 17, ALT 23. IMPRESSION: 1. Bronchograms pneumonitis secondary Stenotrophomonas. I will change to oral Septra to reduce IV fluid volume. 2. Advanced obstructive airways disease. He is on a long-acting muscarinic, long-acting beta agonists and inhaled corticosteroid. I will reduce the dose of IV steroids as his wheezes improved today. 3. Pulmonary edema. Diuresed well yesterday. His chest x-ray still looks a bit wet. He is making progress. His prognosis is fair.
[2019-11-11 20:00] VITALS: BP 154/83
[2019-11-11] MEDS: ACETAMINOPHEN TAB 650MG DOSE (2X325MG) PO PRN (20:28)
[2019-11-12] VITALS: BP 136/83
[2019-11-12] MEDS: IPRATROPIUM 0.5MG/ALBUTEROL 2.5MG INH SOL UD 3ML (DUONEB)(J7620) NEB SCH ×4 (02:38→20:00)
[2019-11-12 04:00] VITALS: BP 126/65
[2019-11-12 05:33] LABS: HEMATOCRIT 52.2 % (42.0-52.0); HEMOGLOBIN 15.9 g/dl (13.5-17.5); MEAN CORPUSCULAR HEMOGLOBIN 28.1 pg (27.0-33.0); MEAN CORPUSCULAR HGB CONC 30.5 g/dl (32.0-36.5); MEAN CORPUSCULAR VOLUME 92.2 fl (80.0-96.0); PLATELET COUNT, AUTOMATED 150 10^3/uL (150-450); RED BLOOD COUNT 5.66 10^6/uL (4.30-6.10); WHITE BLOOD COUNT 10.4 10^3/uL (4.0-10.0)
[2019-11-12] MEDS: HEPARIN SOD (PORCINE) 5000 UNITS/ML VIAL (J1644 PER 1000UNITS) SC SCH ×3 (06:06→21:50)
[2019-11-12] MEDS: SLF 3 ML SYR IV SCH ×3 (06:07→21:51)
[2019-11-12 06:26] LABS: CALCIUM LEVEL 8.9 MG/DL (8.8-10.2); CREATININE FOR GFR 1.34 MG/DL (0.70-1.30); GLOMERULAR FILTRATION RATE 56.4 (>49); MAGNESIUM LEVEL 2.6 MG/DL (1.8-2.4); POTASSIUM SERUM 4.7 MEQ/L (3.5-5.1)
[2019-11-12] MEDS: TIOTROPIUM INHALER/CAPSULE (SPIRIVA) INH SCH (07:34)
[2019-11-12] MEDS: SYMBICORT 160/4.5MCG INHALER 6GM INH SCH ×2 (07:34→20:07)
[2019-11-12 07:46] VITALS: BP 123/71
[2019-11-12] MEDS: CO-ENZYME Q10 50 MG CAP PO SCH (08:32)
[2019-11-12] MEDS: FINASTERIDE 5 MG TAB PO SCH (08:32)
[2019-11-12] MEDS: FEXOFENADINE 60 MG TAB PO SCH (08:32)
[2019-11-12] MEDS: IBUPROFEN 400 MG TAB PO PRN (08:33)
[2019-11-12] MEDS: PANTOPRAZOLE 40MG TAB (PROTONIX) PO SCH (08:33)
[2019-11-12] MEDS: FUROSEMIDE 80 MG TAB PO SCH ×2 (08:33→17:04)
[2019-11-12] MEDS: predniSONE 20 MG TAB PO SCH (08:33)
[2019-11-12] MEDS: BACTRIM 160MG/800MG DS TAB PO SCH ×2 (08:33→20:49)
[2019-11-12] MEDS: ASPIRIN 81 MG ENTERIC TAB PO SCH (08:33)
[2019-11-12] MEDS: VITAMIN D 1,000 INTERNATIONAL UNITS TABLET PO SCH (08:33)
[2019-11-12] MEDS: MULTIVITAMINS/MINERALS THERAP 1 TAB PO SCH ×2 (08:34→20:49)
[2019-11-12] MEDS: guaiFENesin ER 600 MG TAB PO SCH ×2 (08:34→20:50)
--- NOTE | 2019-11-12 11:35 | IPN ---
DATE OF SERVICE: 11/12/2019 NOTE: Mr. Gacria continues to feel better. In fact, he feels his breathing is now at baseline. He no longer has a significant cough. He feels he is walking back and forth from the bathroom to his bed like he does at home. No chest pain or pressure. No paroxysmal nocturnal dyspnea (PND), orthopnea. No nausea or emesis. His lower extremity edema is improved. Mr. Garcia notes that yesterday was the first day they could move back in to his renovated home. He believes he will be able to stick to his diet once he is discharged. OBJECTIVE: PHYSICAL EXAMINATION General: Mr. Garcia is lying in bed in no acute distress. He can complete full sentences. No cough at evaluation. He is able to easily move to the sitting position. Vital signs: Temperature 97.7 which is his maximum temperature (Tmax), pulse 76, respiratory rate 18, blood pressure 123/71 with a mean arterial pressure (MAP) of 88, SpO2 90% on 4 liters by nasal cannula. HEENT: Anicteric. Nares: Patent bilaterally. Oropharynx: Moist mucosa. Lungs: Symmetric excursion, mildly decreased air entry, bibasilar coarse crackles unchanged, no wheeze or rhonchi. Prolonged expiratory phase. No accessory muscle usage or retractions. Cardiovascular: Regular rate and rhythm, normal S1, S2, no murmur, rub, or gallop appreciated. Abdomen: Normoactive bowel sounds, soft, nondistended, nontender. Extremities: Without clubbing or cyanosis, chronic venous changes. Decreased but still present bilateral lower extremity edema to the midshins. LABORATORY DATA Complete blood count (CBC) from this morning showed a hemoglobin of 15.9, hematocrit 52.2, platelet count 150,000, white blood cell count 10,400. Chemistry shows sodium 137, potassium 4.7, chloride 87, bicarbonate 45, anion gap 5, BUN 29, creatinine 1.3, glucose 98, calcium 8.9, magnesium 2.6, BNP 1533. Yesterday's intake and output were 710 in and 4075 out, making him negative 3365. Thus far today, 240 in and 600 out, making him negative 360. Weight is 103.4. 1. Chronic obstructive pulmonary disease (COPD) exacerbation secondary to bronchitis, felt secondary to Stenotrophomonas, though he has been colonized for quite some time. On Bactrim. 2. Chronic obstructive pulmonary disease, severe. 3. Pulmonary edema. 4. Congestive heart failure exacerbation, diuresing but still with elevated brain natriuretic peptide (BNP) and lower extremity edema. RECOMMENDATIONS: 1. Agree with continuing gentle diuresis. 2. He is on bronchodilators, IC/LABA agent and LAMA. 3. He is on oral prednisone and would recommend decreasing it to his baseline 10 mg over the next 10 days to 2 weeks. 4. Mr. Garcia already has a followup scheduled with Dr. Schwab on 11/28/2019. He had a CT pulmonary angiogram done on admission, so the chest CT scan with contrast that was planned as an outpatient before that visit should does not need to be done. At this point, there is nothing further for the pulmonary service to add, and we will sign off. Please do not hesitate to contact the pulmonary service if there are further problems or concerns. DARYN
[2019-11-12 11:37] VITALS: BP 132/73
--- NOTE | 2019-11-12 11:48 | IPNPDOC ---
Subjective Date Seen The patient was seen on 11/12/19. Subjective Chief Complaint/HPI Pt this morning with his at bedside. He is doing alright, less swelling noted in his BLE. General: Denies: Fatigue Constitutional: Denies: Chills, Fever Pulmonary: Reports: Dyspnea, Cough Cardiovascular: Denies: Chest Pain, Palpitations Gastrointestinal: Denies: Nausea, Vomiting, Diarrhea Neurological: Reports: Weakness Psych: Reports: Mood Normal Objective Physical Examination General Exam: Positive: Alert, No Acute Distress ENT Exam: Positive: Mucous membr. moist/pink Neck Exam: Negative: thyromegaly Chest Exam: Positive: Rales (Bibasilar rales), Wheezing (bibasilar expiratory wheezes) Heart Exam: Positive: Rate Normal, Regular Rhythm, Normal S1, Normal S2; Negative: Murmurs, Rubs Telemetry: Positive: No significant arrhythmia Abdomen Exam: Positive: Normal bowel sounds, Soft, Other (obese); Negative: Tenderness, Hepatospenomegaly Extremity Exam: Positive: Edema (1+ edema LE bilaterally); Negative: Tenderness Skin Exam: Negative: Lesion Neuro Exam: Positive: Normal Speech Psych Exam: Positive: Mental status NL, Mood NL, Oriented x 3 Assessment /Plan Problems (1) Systolic and diastolic CHF, acute on chronic Problem Text: 11/12 Tolerating Lasix 80 mg BID, Net Neg 3300 cc overnight, cont current dose, monitor Scr, likely will need less to go home HD fur 40 BID NN 9.1L since admission! Contingency: fur gtt 11/08/19 TTE Stone: 1. Low normal global left ventricular systolic function with a dyskinetic septum. 2. There are some features of left ventricular diastolic dysfunction manifested by abnormal relaxation, grade 1. 3. Aortic valve sclerosis without stenosis or aortic regurgitation. 4. Isolated mitral annulus calcification. 5. Moderate tricuspid regurgitation with moderate pulmonary hypertension. The right heart chambers were markedly dilated with evidence of right ventricular systolic dysfunction. 6. There are findings consistent with an elevated central venous pressure, the inferior vena cava was mildly enlarged. 7. A small pericardial effusion was noted, no evidence of cardiac tamponade. (2) Infection due to Stenotrophomonas maltophilia Status: Acute Problem Text: D5 TMP/SMX obvious concern that TMP/SMX is subtherapeutic (goal TMP 15 mg/kg/D; therefore, even c IBW 85 (currently AW 106 kg); goal awyc=4505. Currently po 320. (CC 82, plan reduce dose 50% if <30) favor chronic colonization 2 immunosuppression 2 chronic pred 10 Contingency: double TMP/SMX dose-CCR for now given increasing cr 11/08 - Failed outpatient management with levo x 1M?, steroids and usual chronic Oxygen with 2L NC Cont IV Bactrim Get pulmonary consult - spoke with Dr. Segura sputum 10/23/19, 11/07/19: STENOTROPHOMONAS MALTOPHILIA QUANTITY OF GROWTH HEAVY FULL REPORT IN LAB NOTES (eCW and Med[facility]). NORMAL CASSANDRA PRESENT 1. STENOTROPHOMONAS MALTOPHILIA RX Route Dose M.I.C. ----- ----- --------- TRIMETHOPRIM/SULFAMETHOXAZOLE S PO Bactrim DS Bid <=20 S IV 160mg TMP & 800mg SMXq6h LEVOFLOXACIN S PO 250mg qd 1 S PO 500mg qd S IV 500mg qd (3) CKD stage G3a/A1, GFR 45-59 and albumin creatinine ratio <30 mg/g Status: Chronic Response to Treatment: Stable Problem Text: baseline cr 1.2 caution on fur, TMP/SMX (4) Cirrhosis Problem Text: 11/09: Etiology likely WADDELL associated with obesity and DM CT suggests Liver cirrhosis - NOT a KNOWN DIAGNOSIS per ecw notes Get Liver US and wkup further as outpatient (5) Pneumonia Status: Acute Problem Text: see above (6) COPD (chronic obstructive pulmonary disease) Status: Chronic Problem Text: 11/[address] Segura's assistance. cont nebs and IV Solumedrol - on chronic prednisone as outpatient (7) Chronic respiratory failure with hypoxia Status: Chronic Problem Text: chronic oxygen 2L at home (8) Physical deconditioning Status: Chronic Response to Treatment: Stable Problem Text: 11/11 NS to DC home (plan home) Plan/VTE VTE Prophylaxis Ordered?: Yes Plan Therapy: PT Anticipated Discharge: Home VS, I&O, 24H, Fishbone Vital Signs/I&O Vital Signs Date Time Temp Pulse Resp B/P (MAP) Pulse Ox O2 Delivery O2 Flow Rate FiO2 11/12/19 11:37 98.0 87 20 132/73 (92) 90 Nasal Cannula 4.0 11/10/19 20:13 36 I&O- Last 24 Hours up to 6 AM 11/12/19 05:59 Intake Total 710 ml Output Total 3525 ml Balance -2815 ml Laboratory Data 24H LABS Laboratory Tests 2 11/12/19 04:58: Nucleated Red Blood Cells % (auto) 0.0, Anion Gap 5L, Glomerular Filtration Rate 56.4, Calcium Level 8.9, Magnesium Level 2.6H, AP-Jpx-[id number]-Type Natriuretic Peptide 1533H CBC/BMP Laboratory Tests 11/12/19 04:58 Microbiology Microbiology 11/07/19 Gram Stain - Final, Complete 11/07/19 Sputum Culture - Final, Complete Stenotrophomonas Maltophilia 11/07/19 Respiratory Virus Panel (PCR) ([facility]) - Final, Complete SUE GABRIEL PA-C Nov 12, 2019 11:48 Fredis Galvez M.D. Nov 12, 2019 16:20
[2019-11-12 15:59] VITALS: BP 107/53
[2019-11-12 20:00] VITALS: BP 115/80
[2019-11-12] MEDS: ACETAMINOPHEN TAB 650MG DOSE (2X325MG) PO PRN (20:53)
[2019-11-13] VITALS: BP 138/74
[2019-11-13] MEDS: IPRATROPIUM 0.5MG/ALBUTEROL 2.5MG INH SOL UD 3ML (DUONEB)(J7620) NEB SCH ×4 (01:29→20:02)
[2019-11-13 04:00] VITALS: BP 103/63
[2019-11-13] MEDS: SLF 3 ML SYR IV SCH ×3 (05:18→20:05)
[2019-11-13] MEDS: HEPARIN SOD (PORCINE) 5000 UNITS/ML VIAL (J1644 PER 1000UNITS) SC SCH ×3 (05:18→20:05)
[2019-11-13 06:23] LABS: BLOOD UREA NITROGEN 23 MG/DL (7-18); CARBON DIOXIDE LEVEL 45 MEQ/L (21-32); CHLORIDE LEVEL 91 MEQ/L (98-107); CREATININE FOR GFR 1.05 MG/DL (0.70-1.30); GLOMERULAR FILTRATION RATE > 60.0 (>49); GLUCOSE, FASTING 122 MG/DL (70-100); MAGNESIUM LEVEL 2.4 MG/DL (1.8-2.4); SODIUM LEVEL 138 MEQ/L (136-145)
[2019-11-13] MEDS: TIOTROPIUM INHALER/CAPSULE (SPIRIVA) INH SCH (07:10)
[2019-11-13] MEDS: SYMBICORT 160/4.5MCG INHALER 6GM INH SCH ×2 (07:10→21:00)
[2019-11-13 08:00] VITALS: BP 123/70
[2019-11-13] MEDS: FEXOFENADINE 60 MG TAB PO SCH (08:10)
[2019-11-13] MEDS: FUROSEMIDE 80 MG TAB PO SCH ×2 (08:11→19:35)
[2019-11-13] MEDS: predniSONE 20 MG TAB PO SCH (08:11)
[2019-11-13] MEDS: ASPIRIN 81 MG ENTERIC TAB PO SCH (08:11)
[2019-11-13] MEDS: VITAMIN D 1,000 INTERNATIONAL UNITS TABLET PO SCH (08:11)
[2019-11-13] MEDS: FINASTERIDE 5 MG TAB PO SCH (08:11)
[2019-11-13] MEDS: guaiFENesin ER 600 MG TAB PO SCH ×2 (08:11→20:05)
[2019-11-13] MEDS: MULTIVITAMINS/MINERALS THERAP 1 TAB PO SCH ×2 (08:11→20:05)
[2019-11-13] MEDS: CO-ENZYME Q10 50 MG CAP PO SCH (08:11)
[2019-11-13] MEDS: BACTRIM 160MG/800MG DS TAB PO SCH ×2 (08:18→20:05)
[2019-11-13] MEDS: PANTOPRAZOLE 40MG TAB (PROTONIX) PO SCH (08:18)
--- NOTE | 2019-11-13 10:05 | IPNPDOC ---
Subjective Date Seen The patient was seen on 11/13/19. Subjective Chief Complaint/HPI Breathing improving. Cleared PT - walked up 11 stairs - sats only dropped to 88%. Remains on 4L NC - usually only on 2L Constitutional: Denies: Chills, Fever Pulmonary: Reports: Dyspnea (improving), Cough (improving) Cardiovascular: Denies: Chest Pain, Palpitations, Orthopnea Gastrointestinal: Denies: Nausea, Vomiting, Abdominal Pain, Diarrhea, Constipa tion Objective Physical Examination General Exam: Positive: Alert, No Acute Distress ENT Exam: Positive: Mucous membr. moist/pink Chest Exam: Positive: Rales (Bibasilar rales - R > L), Wheezing (bibasilar expiratory wheezes) Heart Exam: Positive: Rate Normal, Regular Rhythm, Normal S1, Normal S2; Negative: Murmurs, Rubs Telemetry: Positive: No significant arrhythmia Abdomen Exam: Positive: Normal bowel sounds, Soft, Other (obese); Negative: Tenderness, Hepatospenomegaly Extremity Exam: Positive: Edema (1+ edema LE bilaterally); Negative: Tenderness Skin Exam: Negative: Lesion Neuro Exam: Positive: Normal Speech Psych Exam: Positive: Mental status NL, Mood NL, Oriented x 3 Assessment /Plan Problems (1) Systolic and diastolic CHF, acute on chronic Problem Text: 11/13 - Continues to have modest diuresis on oral Lasix 80 BID. Renal fx and electrolytes remains stable. Still with some signso f volume overload on exam. 11/12 Tolerating Lasix 80 mg BID, Net Neg 3300 cc overnight, cont current dose, monitor Scr, likely will need less to go home HD fur 40 BID NN 9.1L since admission! Contingency: fur gtt 11/08/19 TTE Stone: 1. Low normal global left ventricular systolic function with a dyskinetic septum. 2. There are some features of left ventricular diastolic dysfunction manifested by abnormal relaxation, grade 1. 3. Aortic valve sclerosis without stenosis or aortic regurgitation. 4. Isolated mitral annulus calcification. 5. Moderate tricuspid regurgitation with moderate pulmonary hypertension. The right heart chambers were markedly dilated with evidence of right ventricular systolic dysfunction. 6. There are findings consistent with an elevated central venous pressure, the inferior vena cava was mildly enlarged. 7. A small pericardial effusion was noted, no evidence of cardiac tamponade. (2) Infection due to Stenotrophomonas maltophilia Status: Acute Problem Text: 11/13 - D6 TMP/SMX Add IS and chest PT obvious concern that TMP/SMX is subtherapeutic (goal TMP 15 mg/kg/D; therefore, even c IBW 85 (currently AW 106 kg); goal aewo=[id number]. Currently po 320. (CC 82, plan reduce dose 50% if <30) favor chronic colonization 2 immunosuppression 2 chronic pred 10 Contingency: double TMP/SMX dose-CCR for now given increasing cr 11/08 - Failed outpatient management with levo x 1M?, steroids and usual chronic Oxygen with 2L NC Cont IV Bactrim Get pulmonary consult - spoke with Dr. Segura sputum 10/23/19, 11/07/19: STENOTROPHOMONAS MALTOPHILIA QUANTITY OF GROWTH HEAVY FULL REPORT IN LAB NOTES (eCW and [facility]). NORMAL CASSANDRA PRESENT 1. STENOTROPHOMONAS MALTOPHILIA RX Route Dose M.I.C. ----- ----- --------- TRIMETHOPRIM/SULFAMETHOXAZOLE S PO Bactrim DS Bid <=20 S IV 160mg TMP & 800mg SMXq6h LEVOFLOXACIN S PO 250mg qd 1 S PO 500mg qd S IV 500mg qd (3) CKD stage G3a/A1, GFR 45-59 and albumin creatinine ratio <30 mg/g Status: Chronic Response to Treatment: Stable Problem Text: 11/13 - remains stable so far baseline cr 1.2 caution on fur, TMP/SMX (4) Cirrhosis Problem Text: 11/09: Etiology likely WADDELL associated with obesity and DM CT suggests Liver cirrhosis - NOT a KNOWN DIAGNOSIS per ecw notes Get Liver US and wkup further as outpatient (5) Pneumonia Status: Acute Problem Text: see above (6) COPD (chronic obstructive pulmonary disease) Status: Chronic Problem Text: 11/13 - On 2L NC at home - requiring 4L here. wean if possible as patient improves. On chronic prednisone at home as well Currently on 40 mg here 11/[address] Segura's assistance. cont nebs and IV Solumedrol - on chronic prednisone as outpatient (7) Chronic respiratory failure with hypoxia Status: Chronic Problem Text: chronic oxygen 2L at home (8) Physical deconditioning Status: Chronic Response to Treatment: Stable Problem Text: 11/11 NS to DC home (plan home) Plan/VTE VTE Prophylaxis Ordered?: Yes Plan Therapy: PT Anticipated Discharge: Home Disposition Move to floor. Potential d/c in am VS, I&O, 24H, Fishbone Vital Signs/I&O Vital Signs Date Time Temp Pulse Resp B/P (MAP) Pulse Ox O2 Delivery O2 Flow Rate FiO2 11/13/19 08:00 97.8 80 20 123/70 (87) 90 Nasal Cannula 4.0 11/10/19 20:13 36 I&O- Last 24 Hours up to 6 AM 11/13/19 05:59 Intake Total 1140 ml Output Total 2400 ml Balance -1260 ml Laboratory Data 24H LABS Laboratory Tests 2 11/13/19 05:24: Anion Gap 2L, Glomerular Filtration Rate > 60.0, Calcium Level 8.0L, Magnesium Level 2.4 CBC/BMP Laboratory Tests 11/13/19 05:24 Microbiology Microbiology 11/07/19 Gram Stain - Final, Complete 11/07/19 Sputum Culture - Final, Complete Stenotrophomonas Maltophilia 11/07/19 Respiratory Virus Panel (PCR) ([facility]) - Final, Complete JOSE RODAS PA-C Nov 13, 2019 10:05
[2019-11-13] MEDS: ACETAMINOPHEN TAB 650MG DOSE (2X325MG) PO PRN ×2 (11:44→20:05)
[2019-11-13 12:00] VITALS: BP 125/79
[2019-11-13 16:00] VITALS: BP 130/81
[2019-11-13 19:55] VITALS: BP 129/79
[2019-11-14] MEDS: IPRATROPIUM 0.5MG/ALBUTEROL 2.5MG INH SOL UD 3ML (DUONEB)(J7620) NEB SCH ×2 (02:49→07:57)
[2019-11-14 05:55] VITALS: BP 132/74
[2019-11-14] MEDS: HEPARIN SOD (PORCINE) 5000 UNITS/ML VIAL (J1644 PER 1000UNITS) SC SCH (06:00)
[2019-11-14] MEDS: ACETAMINOPHEN TAB 650MG DOSE (2X325MG) PO PRN (06:07)
[2019-11-14] MEDS: SLF 3 ML SYR IV SCH (06:07)
[2019-11-14] MEDS: TIOTROPIUM INHALER/CAPSULE (SPIRIVA) INH SCH (07:56)
[2019-11-14] MEDS: SYMBICORT 160/4.5MCG INHALER 6GM INH SCH (07:57)
[2019-11-14] MEDS: ASPIRIN 81 MG ENTERIC TAB PO SCH (08:18)
[2019-11-14] MEDS: BACTRIM 160MG/800MG DS TAB PO SCH (08:18)
[2019-11-14] MEDS: PANTOPRAZOLE 40MG TAB (PROTONIX) PO SCH (08:18)
[2019-11-14] MEDS: MULTIVITAMINS/MINERALS THERAP 1 TAB PO SCH (08:18)
[2019-11-14] MEDS: FEXOFENADINE 60 MG TAB PO SCH (08:19)
[2019-11-14] MEDS: guaiFENesin ER 600 MG TAB PO SCH (08:19)
[2019-11-14] MEDS: FUROSEMIDE 80 MG TAB PO SCH (08:19)
[2019-11-14] MEDS: VITAMIN D 1,000 INTERNATIONAL UNITS TABLET PO SCH (08:19)
[2019-11-14] MEDS: predniSONE 20 MG TAB PO SCH (08:19)
[2019-11-14] MEDS: FINASTERIDE 5 MG TAB PO SCH (08:19)
[2019-11-14] MEDS: CO-ENZYME Q10 50 MG CAP PO SCH (08:19)
[2019-11-14] MEDS ORDERED: PRED10TA2 PO (08:49)
[2019-11-14] MEDS ORDERED: SULF1TAB93 PO (08:49)
[2019-11-14] MEDS ORDERED: PANT40TA3 PO (08:49)
[2019-11-14] MEDS ORDERED: LASI20TA3 PO (08:52)
--- NOTE | 2019-11-14 19:42 | DSES ---
DATE OF ADMISSION: 11/07/2019 DATE OF DISCHARGE: 11/14/2019 PRIMARY CARE PROVIDER: LAURIE Antonio ATTENDING: Dr. Fredis Galvez HISTORY: This is a 69-year-old male patient with chronic respiratory failure with hypoxemia secondary to chronic obstructive pulmonary disease (COPD) and history of nicotine dependence, as well as acute on chronic diastolic and systolic congestive heart failure (CHF), who was admitted to the hospital with increased cough, increased dyspnea on exertion. During his hospitalization, he was found to have pneumonia secondary to Stenotrophomonas maltophilia. This was also noted previous with susceptibility to Bactrim and Levaquin, although the patient failed to improve. Repeat cultures shows resistance to Levaquin and therefore he was changed to Bactrim. He seems to be tolerating this well. He also was placed on intravenous Lasix for diuresis. This has been transitioned to oral. He is taking 80 mg twice a day, we will transition this down to 60 mg twice a day moving forward at discharge. The patient is aware of this change. He is aware that he needs to call the office with a weight gain of more than 3 pounds following his discharge. He will need close monitoring of his renal function, as well as potassium and he understands this. He will complete an additional 7 day course of Bactrim for the respiratory infection. He was noted to have signs of cirrhosis on CT scan and therefore followup liver ultrasound was performed and that confirms this. This was discussed with the patient during his hospitalization. He will followup with me in the outpatient setting in regard to this. His renal function has remained stable. His respiratory status has improved. He is requiring 4 liters of oxygen at this time, attempts to wean this have failed. We will continue to work on this in the outpatient setting. He has been cleared by physical therapy (PT) to return home. DISCHARGE DIAGNOSES: 1. Acute on chronic respiratory failure secondary to acute on chronic diastolic congestive heart failure (CHF) and pneumonia secondary to Stenotrophomonas maltophilia. 2. Chronic kidney disease stage III. 3. Cirrhosis of the liver. 4. Chronic obstructive pulmonary disease (COPD). 5. Physical deconditioning. 6. Morbid obesity. DISCHARGE MEDICATIONS: - prednisone 40 mg daily times 5 days, then 30 mg daily times 5 days, then 20 mg daily times 5 days, then 10 mg daily - Lasix 60 mg by mouth twice a day - Protonix 40 mg daily - Bactrim DS one tablet by mouth twice a day - acetaminophen 325 mg every 6 hours as needed for pain or fever - albuterol sulfate in haled every 4 hours as needed for shortness of breath - Ventolin HFA 108 mcg inhaled every 2 to 4 hours as needed for shortness of breath - aspirin 81 mg daily - vitamin D 2000 units daily - Federica 180 mg daily - finasteride 5 mg daily - glucosamine chondroitin two capsules by mouth twice a day - Mucinex 1200 mg by mouth twice a day - ibuprofen 400 mg every 4 hours as needed for pain or fever - multivitamin one tablet daily - fish oil 1000 mg capsule twice a day - Advair 500/50 one puff inhaled twice a day - Viagra 100 mg daily as needed for erectile dysfunction - Spiriva one inhalation daily - CoEnzyme Q10 200 mg daily DISCHARGE PLAN: Followup with me in 1 week. He will need a basic metabolic panel (BMP). He will need followup on his cirrhosis. Activity should be as tolerated. His oxygen is at 4 liters. His diet is 2 gram sodium.
== END 2019-11-14 10:36 | disposition home or self-care (01) | DRG 137 ==
LOC: M ED 15:58 → M ED INP 19:55 → ENRESERVTM 11-08 08:37 → ENRESERVDT 11-08 08:37 → M PCU 11-08 09:38 → M MS4PR 11-13 15:53
PROVIDERS: ADMIT Internal Medicine; ATTEND Family Medicine
DX: J15.8 Pneumonia due to other specified bacteria (principal); J96.22 Acute and chronic respiratory failure with hypercapnia; I50.43 Acute on chronic combined systolic (congestive) and diastolic (congestive) heart failure; E11.22 Type 2 diabetes mellitus with diabetic chronic kidney disease; E66.9 Obesity, unspecified; J44.0 Chronic obstructive pulmonary disease with (acute) lower respiratory infection; K75.81 Nonalcoholic steatohepatitis (NASH); K74.60 Unspecified cirrhosis of liver; N40.0 Benign prostatic hyperplasia without lower urinary tract symptoms; N18.3 Chronic kidney disease, stage 3 (moderate); J44.1 Chronic obstructive pulmonary disease with (acute) exacerbation; N52.9 Male erectile dysfunction, unspecified; Z99.81 Dependence on supplemental oxygen; Z79.82 Long term (current) use of aspirin; Z79.52 Long term (current) use of systemic steroids; Z79.899 Other long term (current) drug therapy; Z68.33 Body mass index [BMI] 33.0-33.9, adult; Z87.891 Personal history of nicotine dependence

== ENCOUNTER → 2019-11-07 | Outpatient (CLI) | payer BC ==
[~2019-11-07] MED LIST changes: +D 202000 PO; +FINA5TAB2 PO; +FURO40TA2 PO; +LEVO500T3 PO; +PRED10TA2 PO
--- NOTE | 2019-11-07 17:04 | REP ---
Chest x-ray: Three views. History: Panlobular emphysema. Dyspnea and cough. Comparison chest x-ray Feb 25 1018. Findings: The lungs are hyperinflated overall consistent with advanced COPD. There are pleuroparenchymal fibrotic areas in the right base and left base. Benign pleural thickening is seen. There is chronic blunting of the right and left lateral pleural angles. Mild cardiomegaly is observed unchanged. Pulmonary vascular markings are cephalized and somewhat indistinct consistent with vascular congestion. Interstitial markings are more prominent today than on the February 25, 2018 study. The aorta is tortuous. No bony abnormality is seen. Impression: Cardiomegaly, vascular congestion, and increased interstitial markings diffusely suggesting CHF with interstitial edema. This is superimposed on advanced COPD and emphysematous change. Electronically Signed by Ramesh Ruth MD 11/07/2019 05:58 P
== END ==
LOC: M WUC 14:18
PROVIDERS: ATTEND Internal Medicine Pulmonary Disease
DX: J43.1 Panlobular emphysema (principal); J96.11 Chronic respiratory failure with hypoxia

== ENCOUNTER → 2019-11-18 | Outpatient (CLI) | payer BC ==
[~2019-11-18] MED LIST changes: +D 202000 PO; +FINA5TAB2 PO; +FURO40TA2 PO; +LASI20TA3 PO; +LEVO500T3 PO; +PANT40TA3 PO; +PRED10TA2 PO; +SULF1TAB93 PO
--- NOTE | 2019-11-18 08:03 | REP ---
Clinical: Follow up abnormal lung findings. Technique: Axial noncontrast images from the thoracic inlet to the upper abdomen with coronal and sagittal re-formations. Comparison 11/07/2019. Findings: Lung singh demonstrate advanced emphysematous changes along with subpleural fibrosis/scarring similar to prior examination. Previously noted superimposed subtle scattered lower lobe infiltrates have essentially resolved/improved. Tracheobronchial tree is relatively patent. No new area of consolidation or effusion noted. No obvious significant nodule or mass lesion identified. Mildly prominent mediastinal lymph nodes measure up to 1.6 cm. Atherosclerotic changes to the thoracic aorta and coronary arteries again noted. No aortic aneurysm. No cardiomegaly or significant pericardial effusion. The main pulmonary arteries are mildly dilated measuring up to 3.4 cm diameter. Surrounding musculoskeletal structures are intact. The limited upper abdomen demonstrates stable right adrenal adenoma and hepatic calcifications. Impression: 1. Chronic advanced emphysematous changes and fibrosis/scarring similar to prior examination. 2. Previously noted lower lobe infiltrates have essentially resolved with only minimal residual changes which may reflect chronic opacities. 3. No new, acute consolidation or effusion. 4. Nonacute findings as described above including stable right adrenal adenoma as well as suggestions for pulmonary hypertension. Electronically Signed by Sean Fenton MD 11/18/2019 07:55 A
== END ==
LOC: M RAD 07:24
PROVIDERS: ATTEND Internal Medicine Pulmonary Disease
DX: R91.1 Solitary pulmonary nodule (principal)

== ENCOUNTER → 2019-11-22 | Outpatient (REF) | payer BC, MEDICARE ==
[2019-11-22 15:55] LABS: CREATININE FOR GFR 1.84 MG/DL (0.70-1.30); GLOMERULAR FILTRATION RATE 39.1 (>49); POTASSIUM SERUM 4.9 MEQ/L (3.5-5.1)
== END ==
LOC: M SFHCADAM 13:56
PROVIDERS: ATTEND Physician Assistant Medical
DX: J96.11 Chronic respiratory failure with hypoxia (principal); I27.81 Cor pulmonale (chronic); I50.32 Chronic diastolic (congestive) heart failure

== ENCOUNTER → 2019-11-29 | Outpatient (CLI) | payer BC ==
[2019-11-29 08:42] LABS: BLOOD UREA NITROGEN 29 MG/DL (7-18); CALCIUM LEVEL 8.7 MG/DL (8.8-10.2); CARBON DIOXIDE LEVEL 39 MEQ/L (21-32); CHLORIDE LEVEL 92 MEQ/L (98-107); CREATININE FOR GFR 1.06 MG/DL (0.70-1.30); GLOMERULAR FILTRATION RATE > 60.0 (>49); GLUCOSE, FASTING 170 MG/DL (70-100); POTASSIUM SERUM 4.4 MEQ/L (3.5-5.1); SODIUM LEVEL 136 MEQ/L (136-145)
== END ==
LOC: M LAB 07:46
PROVIDERS: ATTEND Physician Assistant Medical
DX: I50.32 Chronic diastolic (congestive) heart failure (principal)

== ENCOUNTER → 2019-12-20 | Outpatient (REF) | payer BC, MEDICARE ==
[2019-12-20 16:24] LABS: BLOOD UREA NITROGEN 24 MG/DL (7-18); CALCIUM LEVEL 9.3 MG/DL (8.8-10.2); CARBON DIOXIDE LEVEL 40 MEQ/L (21-32); CHLORIDE LEVEL 94 MEQ/L (98-107); GLOMERULAR FILTRATION RATE > 60.0 (>49); GLUCOSE, FASTING 142 MG/DL (70-100); POTASSIUM SERUM 4.1 MEQ/L (3.5-5.1); SODIUM LEVEL 139 MEQ/L (136-145)
== END ==
LOC: M SFHCADAM 13:17
PROVIDERS: ATTEND Physician Assistant Medical
DX: I27.81 Cor pulmonale (chronic) (principal)

== ENCOUNTER 2020-02-19 14:24 | Inpatient (IN) | payer BC, MEDICARE ==
[~2020-02-19] VITALS: Ht 177.8 cm; Wt 105.0 kg
[~2020-02-19 14:24] MED LIST changes: -ACET325T10 PO; +ACET325T11 PO
[2020-02-19] MEDS: COMBIVENT RESPIMAT 100-20MCG INHALER 4GM INH PRN ×3 (15:12→15:38)
[2020-02-19] MEDS ORDERED: methylPREDNISolone INJ 125 MG/2 ML VIAL (J2930) IV ONE (15:15)
[2020-02-19 15:18] LABS: VENOUS BASE EXCESS 8.3 (-2.0-2.0); VENOUS HCO3 35.3 MEQ/L (23.0-27.0); VENOUS O2 SATURATION 90.5 % (60.0-80.0); VENOUS PARTIAL PRESSURE CO2 56.7 mmHg (38.0-50.0); VENOUS PARTIAL PRESSURE O2 58.5 mmHg (30.0-50.0); VENOUS PH 7.412 UNITS (7.330-7.430); VENOUS STANDARD HCO3 31.8 MEQ/L
[2020-02-19 15:27] LABS: BASO # 0.1 10^3/uL (0.0-0.2); BASO % 0.3 % (0.0-1.0); HEMOGLOBIN 16.4 g/dl (13.5-17.5); LYMPH # 1.1 10^3/uL (1.5-5.0); MEAN CORPUSCULAR HEMOGLOBIN 30.3 pg (27.0-33.0); MEAN CORPUSCULAR HGB CONC 32.2 g/dl (32.0-36.5); MEAN CORPUSCULAR VOLUME 94.3 fl (80.0-96.0); MONO # 1.2 10^3/uL (0.0-0.8); MONO % 5.5 % (0.0-5.0); NEUTROPHILS # 18.9 10^3/uL (1.5-8.5); NEUTROPHILS % 88.4 % (36.0-66.0); PLATELET COUNT, AUTOMATED 176 10^3/uL (150-450); RED BLOOD COUNT 5.41 10^6/uL (4.30-6.10); WHITE BLOOD COUNT 21.4 10^3/uL (4.0-10.0)
[2020-02-19] MEDS ORDERED: FURO40TA2 PO (15:39)
[2020-02-19] MEDS ORDERED: PRED10TA2 PO (15:39)
[2020-02-19 16:03] LABS: ALBUMIN 3.4 GM/DL (3.2-5.2); ALT/SGPT 49 U/L (12-78); BILIRUBIN,DIRECT 0.2 MG/DL (0.0-0.2); BILIRUBIN,TOTAL 0.7 MG/DL (0.2-1.0); BLOOD UREA NITROGEN 21 MG/DL (7-18); CALCIUM LEVEL 9.1 MG/DL (8.8-10.2); CARBON DIOXIDE LEVEL 36 MEQ/L (21-32); CHLORIDE LEVEL 95 MEQ/L (98-107); CK-MB VALUE MASS < 1.0 NG/ML (<3.6); CPK CREATINE PHOSPHOKINASE 40 U/L (39-308); CREATININE FOR GFR 1.04 MG/DL (0.70-1.30); GLOMERULAR FILTRATION RATE > 60.0 (>49); GLUCOSE, FASTING 193 MG/DL (70-100); NT-PRO BNP 707 PG/ML (<125); POTASSIUM SERUM 3.8 MEQ/L (3.5-5.1); SODIUM LEVEL 138 MEQ/L (136-145); TOTAL PROTEIN 7.7 GM/DL (6.4-8.2); TROPONIN I < 0.02 NG/ML (< 0.10)
--- NOTE | 2020-02-19 16:22 | REP ---
REASON FOR EXAM: Cough and dyspnea. COMPARISON: Multiple, the latest 11/10/2019. The technique utilized in obtaining the radiograph has magnified the cardiac silhouette and accentuated the interstitial markings. Chronic interstitial fibrotic changes are noted with cardiomegaly accentuated by technique. There is bilateral hilar fullness, status quo. This has remained stable for years. A possible opacity has developed in the left mid lung zone peripherally laterally seen in a limited fashion on this portable exam. IMPRESSION: Chronic changes as described above. I cannot rule out the possibility of a new abnormal left lung opacity. CT examination of the chest is recommended. Electronically Signed by Deacon Jones DO 02/19/2020 04:31 P
[2020-02-19] MEDS ORDERED: ISOVUE-370 76% 100ML VIAL As Ordered ONE (17:34)
--- NOTE | 2020-02-19 18:29 | REPVR ---
PROCEDURE INFORMATION: Exam: CT Angiography Chest With Contrast Exam date and time: 02/19/2020 5:53 PM Age: 69 years old Clinical indication: Shortness of breath; Additional info: SOB TECHNIQUE: Imaging protocol: Computed tomographic angiography of the chest with intravenous contrast. 3D rendering: MIP and/or 3D reconstructed images were created by the technologist. Radiation optimization: All CT scans at this facility use at least one of these dose optimization techniques: automated exposure control; mA and/or kV adjustment per patient size (includes targeted exams where dose is matched to clinical indication); or iterative reconstruction. Contrast material: ISOVUE 370; Contrast volume: 100 ml; Contrast route: IV; COMPARISON: CT ANGIO CHEST 11/07/2019 5:07 PM FINDINGS: Pulmonary arteries: Main pulmonary artery is enlarged and measures 4.3 cm. Clinical correlation with pulmonary artery hypertension. Aorta: Unremarkable. No aortic aneurysm. No aortic dissection. Lungs: Moderate to severe centrilobular emphysema. Bibasilar parenchymal opacities not significantly changed from prior study may be related to chronic fibrotic changes, possibility of superimposed pneumonitis is not excluded. Pleural space: Unremarkable. No pneumothorax. No pleural effusion. Heart: Unremarkable. No cardiomegaly. No pericardial effusion. Lymph nodes: Unremarkable. No enlarged lymph nodes. Liver: Again visualized are multiple hepatic calcifications. Nodular surface contour of the liver. Bones/joints: Unremarkable. No acute fracture. Soft tissues: Unremarkable. IMPRESSION: No pulmonary embolism. Moderate to severe central lobular emphysema with chronic fibrotic changes. Superimposed pneumonitis not excluded. Liver demonstrates lobular surface contour consistent with cirrhosis. Hepatic calcifications. Enlargement of the central pulmonary arteries. Clinical correlation with pulmonary arterial hypertension. Electronically signed by: Gerson Liriano On 02/19/2020 18:29:06 PM
[2020-02-19] MEDS ORDERED: LevoFLOXacin IV 750 MG in IV 1 EA IV ONE (18:45)
[2020-02-19] MEDS ORDERED: methylPREDNISolone INJ 125 MG/2 ML VIAL (J2930) IV STA (19:10)
--- NOTE | 2020-02-19 19:10 | HPEPDOC ---
[facility] Medical History & Physical Date of Admission February 19, 2020 Date of Service: February 19, 2020 Primary Care Physician: Erik Calderon MD Attending Physician: ABEL BRYAN MD History and Physical TIME OF SERVICE: 7:40 PM CHIEF COMPLAINT: Shortness of breath HISTORY OF PRESENT ILLNESS: This is a 69-year-old gentleman who reports coming to the also because he's had shortness of breath that began "5 years ago". Today, he came to the hospital because yesterday, "it was very difficult to breathe" and he had fevers high as 100.9. At his baseline. He has shortness of breath is worse with exertion, but this has been more prominent than usual. He denies any changes in his chronic cough, runny nose, chills, muscle aches, chest pain, weight gain, or lower extremity edema. Per discussion with Dr. Haines the patient's EKG showed new type II second-degree AV block; Dr. Ritter recommended trending troponin and ordering an echo. The CT was negative for PE but showed possible aspiration pneumonitis, therefore the patient was given levofloxacin, Solu-Medrol and nebs to manage possible pneumonia and acute COPD. 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 He doesn't drink alcohol FAMILY HISTORY: Father had CAD Brother had pancreatic cancer ALLERGIES: Please see below. HOME MEDICATIONS: Please see below. PHYSICAL EXAMINATION: Vital Signs Date Time Temp Pulse Resp B/P (MAP) Pulse Ox O2 Delivery O2 Flow Rate FiO2 02/19/20 14:44 144/72 (96) 02/19/20 14:54 96 94 Nasal Cannula 4.0 02/19/20 15:06 98.7 17 GEN: well nourished / well developed/ NAD INTEGUMENT: He doesn't have facial plethora HEENT:NCAT / NC in place CVS: RRR/ radial pulses intact /trace lower extremity edema LUNGS: there is no nasal flairing /he is able to speak full sentences without stopping to take a breath / occasional coughing / he is not using accessory muscles / he doesn't have wheezing or rhochi ABDOMEN: soft & not tender with palpation MSK/EXTREMITIES: range of motion intact in all 4 extremities NEURO: CN 2-12 are grossly intact / speech is not dysarthric PSYCH: alert and oriented to person place and time/ able to understand and follow all commands LABORATORY DATA: Immature Granulocyte % (Auto) 0.8, Neutrophils (%) (Auto) 88.4H, Lymphocytes (%) (Auto) 5.0L, Monocytes (%) (Auto) 5.5H, Eosinophils (%) (Auto) 0.0, Basophils (%) (Auto) 0.3, Neutrophils # (Auto) 18.9H, Lymphocytes # (Auto) 1.1L, Monocytes # (Auto) 1.2H, Eosinophils # (Auto) 0.0, Basophils # (Auto) 0.1, Nucleated Red Blood Cells % (auto) 0.0, Blood Gas Bicarbonate Standard 31.8, Venous Blood pH 7.412, Venous Blood Partial Pressure CO2 56.7H, Venous Blood Partial Pressure O2 58.5H, Venous Blood Total Carbon Dioxide 37.0H, Venous Blood HCO3 35.3H, Venous Blood Oxygen Saturation 90.5H, Venous Blood Base Excess 8.3H, Anion Gap 7L, Glomerular Filtration Rate > 60.0, Calcium Level 9.1, Total Bilirubin 0.7, Dir ect Bilirubin 0.2, Aspartate Amino Transf (AST/SGOT) 22, Alanine Aminotransferase (ALT/SGPT) 49, Alkaline Phosphatase 89, Total Creatine Kinase 40, Creatine Kinase MB < 1.0, Creatine Kinase MB Relative Index 2.50, Troponin I < 0.02, ID-Woh-V-Type Natriuretic Peptide 707H, Total Protein 7.7, Albumin 3.4, Albumin/Globulin Ratio 0.79L, Thyroid Stimulating Hormone (TSH) 1.810 Coronavirus (COVID-19)(PCR) NEGATIVE IMAGING: Chest x-ray "IMPRESSION: Chronic changes as described above. I cannot rule out the possibility of a new abnormal left lung opacity. CT examination of the chest is recommended." CTA chest "IMPRESSION: No pulmonary embolism. Moderate to severe central lobular emphysema with chronic fibrotic changes. Superimposed pneumonitis not excluded. Liver demonstrates lobular surface contour consistent with cirrhosis. Hepatic calcifications. Enlargement of the central pulmonary arteries. Clinical correlation with pulmonary arterial hypertension." MICROBIOLOGY: 02/19/20 Blood Culture, Received Pending 02/19/20 - Final, Complete 02/19/20 Blood Culture, Received Pending ASSESSMENT: Mr. Garcia is a 69-year-old with a history of NIDDM, emphysema, O2 dependent respiratory failure, sys/laura CHF, pulmonary HTN, liver cirrhosis, and multiple surgeries, who is admitted for evaluation of second-degree AV block, and acute COPD secondary to aspiration pneumonia. PLAN: 1. Possible Type 2 Second-degree AV block. Currently the cause is unclear; he is not on calcium channel blockers, beta blockers, and his troponin and TSH are unrevealing. Plan: Admit to medical floor/telemetry/f/u troponins and mag /follow-up Echo/f/u with Dr. Ritter 2. Acute Emphysema with chronic oxygen-dependent respiratory failure Likely 2/[address] scan report COVID 19 was neg His VBG showed a PCO2 56, but the pH was 7.412 He is currently using 4 L of oxygen, which is his baseline Plan: supplemental O2 / continuous pulse oximetry / aspiration precautions / Dunebs Q6H, levalbuterol Q1HP, Prednisone + PPI 3. SIRS/Sepsis 2/2 Aspiration PNA SIRS criteria include HR >90 / WBC >12 He had a fever as high as 100.9 at home NEW2S Score = 6 points = medium risk PORT/PSI Score to predict risk of mortality in pt w CAP = 98 points = class IV or moderate risk = hospitalization recommended Plan: telemetry / Sepsis protocol w repeat lactic / Unasyn / will only give 60ml/H of IVF bc he has CHF and pulm HTN & is at increased risk of developing fluid overload /f/u blood cx, / Acetaminophen PRN for fever / target MAP 65 to 70 / f/u Is and Os with target UOP of at least 0.5 ml/kg/H / target serum glucose 140-180 while acutely ill 4. Chronic diastolic, systolic CHF / Pulm HTN He is clinically euvolemic, hasn't missed any doses of Lasix, and his BNP is 700 which is lower than it was during his most recent visit. Plan: Follow-up is and os, daily weights, low salt diet, continue with Lasix 5. NIDDM2 Plan: diabetic diet / f/u accuchecks & A1C / hypoglycemia protocol / sliding scale insulin 6. Class I obesity with BMI of 32.9. He has coexisting diabetes which complicates care Plan: f/u w PCP for sleep apnea screening if not already done & press helper refe rral / recommend cardiovascular exercise for 40 min 4-5 days a week DVT PROPHYLAXIS: Lovenox Home Medications Scheduled Aspirin (Aspir 81) 81 Mg Tab, 81 MG PO DAILY Cholecalciferol (Vitamin D3) (Vitamin D3) 1,000 Unit Tablet, 2,000 UNITS PO DAILY Fexofenadine HCl (Federica Allergy) 180 Mg Tablet, 180 MG PO DAILY Finasteride (Finasteride) 5 Mg Tablet, 5 MG PO DAILY Furosemide (Furosemide) 40 Mg Tablet, 40 MG PO BID TAKES AT 0600/1800 Gluc Alexis/Chondro Alexis A/Vit C/Mn (Glucosamine-Chondroitin Cap) 1 Cap Cap, 2 CAP PO BID Guaifenesin (Mucinex) 600 Mg Tab, 1,200 MG PO BID Multivitamins (Thera M Plus Tablet) 1 Tab Tab, 1 TAB PO BID [place]-3 Fatty Acids/Fish Oil (Fish Oil 1,000 mg Capsule) 1 Each Capsule, 1,000 MG PO BID Prednisone (Prednisone) 10 Mg Tablet, 10 MG PO DAILY Salmeterol/Fluticasone (Advair 500-50 Diskus) 28 Puff/Inhaler Aerp, 1 PUFF INH BID Ubidecarenone (Coenzyme Q10) 100 Mg Tab, 200 MG PO DAILY Scheduled PRN Acetaminophen (Acetaminophen) 325 Mg Tablet, 650 MG PO Q4H PRN for PAIN Albuterol Sulf (Albuterol Sulfate) 2.5 Mg/3 Ml Nebu, 2.5 MG INH Q4H PRN for SHORTNESS OF BREATH Albuterol Sulfate (Ventolin Hfa) 108 Mcg/Act Aer, 2 PUFFS INH Q4H PRN for SHORTNESS OF BREATH Sildenafil Citrate (Sildenafil Citrate) 100 Mg Tablet, 100 MG PO ASDIRECTED PRN for ERECTILE DYSFUNCTION Allergies Coded Allergies: No Known Allergies (Unverified , 11/07/19) A-FIB/CHADSVASC A-FIB History Current/History of A-Fib/PAF?: No Current PO Anticoag Therapy: No ABEL BRYAN MD February 19, 2020 19:10
[2020-02-19] MEDS ORDERED: ACETAMINOPHEN TAB 650MG DOSE (2X325MG) PO PRN (19:15)
[2020-02-19] MEDS ORDERED: MAALOX 30 ML SUSP *UDC PO PRN (19:15)
[2020-02-19] MEDS ORDERED: ALBUTEROL SULFATE 2.5 MG/0.5 ML INH NEB SOLN NEB PRN (19:15)
[2020-02-19] MEDS ORDERED: VITAD1000T PO (19:17)
[2020-02-19] MEDS ORDERED: ACET1TAB55 PO (19:17)
[2020-02-19] MEDS ORDERED: SILD100T PO (19:17)
[2020-02-19] MEDS: IPRATROPIUM 0.5MG/ALBUTEROL 2.5MG INH SOL UD 3ML (DUONEB)(J7620) NEB SCH (20:00)
[2020-02-19] MEDS ORDERED: LEVALBUTEROL 1.25 MG/0.5 ML CONCENTRATE NEB NEB PRN (20:15)
[2020-02-19] MEDS ORDERED: LR 1,000 ML IV SCH (20:15)
[2020-02-19 20:20] LABS: HEMOGLOBIN A1c 6.7 %
[2020-02-19 20:50] VITALS: BP 132/87
[2020-02-19 21:00] VITALS: O2SAT 97
[2020-02-19] MEDS ORDERED: GLUCOSE 4GM CHEW TABLET PO PRN (21:00)
[2020-02-19] MEDS: HumaLOG INSULIN (NovoLOG) PER UNIT SC SCH (21:00)
[2020-02-19] MEDS ORDERED: GLUCAGON INJ 1MG VIAL SC PRN (21:00)
[2020-02-19] MEDS ORDERED: DEXTROSE 50% 50 ML SYRINGE IV PRN (21:00)
[2020-02-19] MEDS: PANTOPRAZOLE 40MG TAB (PROTONIX) PO SCH (21:31)
[2020-02-19] MEDS: FUROSEMIDE 40 MG TAB PO SCH (21:31)
[2020-02-19 21:33] LABS: MAGNESIUM LEVEL 2.3 MG/DL (1.8-2.4); TROPONIN I < 0.02 NG/ML (< 0.10)
[2020-02-19 22:00] VITALS: O2SAT 90
[2020-02-19 23:00] VITALS: O2SAT 94
[2020-02-20] VITALS (22 sets, daily range): BP systolic 120–149; BP diastolic 62–88; O2SAT 84–98
[2020-02-20] MEDS: AMPICILLIN SOD/SULBACTAM SOD 1.5 GM in D5W MINI-BAG PLUS 50 ML IV SCH ×4 (00:35→18:16)
[2020-02-20] MEDS: IPRATROPIUM 0.5MG/ALBUTEROL 2.5MG INH SOL UD 3ML (DUONEB)(J7620) NEB SCH ×4 (01:07→19:32)
[2020-02-20 03:19] LABS: HEMATOCRIT 45.2 % (42.0-52.0); HEMOGLOBIN 14.6 g/dl (13.5-17.5); MEAN CORPUSCULAR HEMOGLOBIN 30.1 pg (27.0-33.0); MEAN CORPUSCULAR HGB CONC 32.3 g/dl (32.0-36.5); MEAN CORPUSCULAR VOLUME 93.2 fl (80.0-96.0); PLATELET COUNT, AUTOMATED 131 10^3/uL (150-450); RED BLOOD COUNT 4.85 10^6/uL (4.30-6.10); WHITE BLOOD COUNT 13.5 10^3/uL (4.0-10.0)
[2020-02-20 04:37] LABS: BLOOD UREA NITROGEN 18 MG/DL (7-18); CALCIUM LEVEL 8.1 MG/DL (8.8-10.2); CARBON DIOXIDE LEVEL 38 MEQ/L (21-32); CHLORIDE LEVEL 97 MEQ/L (98-107); CREATININE FOR GFR 1.03 MG/DL (0.70-1.30); GLOMERULAR FILTRATION RATE > 60.0 (>49); GLUCOSE, FASTING 199 MG/DL (70-100); POTASSIUM SERUM 3.7 MEQ/L (3.5-5.1); SODIUM LEVEL 140 MEQ/L (136-145); TROPONIN I < 0.02 NG/ML (< 0.10)
--- NOTE | 2020-02-20 05:48 | ECGEPIP ---
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
[2020-02-20] MEDS: HumaLOG INSULIN (NovoLOG) PER UNIT SC SCH ×5 (07:30→21:00)
[2020-02-20] MEDS: ENOXAPARIN 40MG/0.4ML SYRINGE (J1650 PER 10MG) SC SCH ×2 (09:00→09:19)
[2020-02-20] MEDS ORDERED: FUROSEMIDE 40 MG TAB PO SCH (09:00)
[2020-02-20] MEDS: ASPIRIN 81 MG ENTERIC TAB PO SCH (09:17)
[2020-02-20] MEDS: VITAMIN D 1,000 INTERNATIONAL UNITS TABLET PO SCH (09:17)
[2020-02-20] MEDS: FINASTERIDE 5 MG TAB PO SCH (09:17)
[2020-02-20] MEDS: FUROSEMIDE 40 MG TAB PO SCH ×2 (09:18→18:16)
[2020-02-20] MEDS: predniSONE 20 MG TAB PO SCH (09:18)
--- NOTE | 2020-02-20 13:32 | IPNPDOC ---
Date Seen The patient was seen on 02/20/20. Progress Note SUBJECTIVE: Patient reported to ED yesterday for shortness of breath x 1 week and subjective fevers at home. He reports SOB had been worsening but he had not required more than the 4L O2 which he normally uses at baseline. He did not notice any worsened lower extremity swelling, no cough or sputum production. This morning he reports he feels much better. Per H&P, patient was found to have type II 2nd- degree AV block in ED for which cardiology was called. Patient has been on telemetry overnight with no events. He denies any chest pain, palpitations this morning. In addition the patient is currently on Unasyn for suspected aspiration pneumonitis surmised from CT chest. The patient denies any swallowing difficulties or aspiration episodes. No peripheral RLL infiltrate to suggest this pathology. Otherwise, he denies any fevers/chills nor any nausea/vomiting/diarrhea at this time. OBJECTIVE PHYSICAL EXAMINATION: VITAL SIGNS: Please see below. GENERAL APPEARANCE: Laying in bed, appears stated age, no acute distress, calm, cooperative HEENT: EOMI, PERRLA, neck is supple with no thyromegaly or lymphadenopathy RESPIRATORY: Scattered wheezes and rhonchi in all lobes bilaterally, good air entry CARDIOVASCULAR: no JVD, RRR, no murmurs/rubs/gallops, normal S1 and S2 ABDOMEN: +BS, soft, nontender to palpation in all four quadrants, no masses/organomegaly EXTREMITIES: no clubbing, cyanosis or edema noted, chronic venous stasis in bilateral lower extremities noted NEUROLOGICAL: CN 2-12 intact, No obvious focal deficits PSYCHIATRIC: normal mood/affect Skin: No rashes or ulcers appreciated, warm and well-perfused LN: No significant cervical or inguinal lymphadenopathy LABORATORY DATA, IMAGING STUDIES, MICROBIOLOGY: Please see below. IMAGING: Chest x-ray "IMPRESSION: Chronic changes as described above. I cannot rule out the possibility of a new abnormal left lung opacity. CT examination of the chest is recommended." CTA chest "IMPRESSION: No pulmonary embolism. Moderate to severe central lobular emphysema with chronic fibrotic changes. Superimposed pneumonitis not excluded. Liver demonstrates lobular surface contour consistent with cirrhosis. Hepatic calcifications. Enlargement of the central pulmonary arteries. Clinical correlation with pulmonary arterial hypertension." Echocardiogram: pending DVT prophylaxis ordered?: Lovenox ASSESSMENT AND PLAN: This is a DM2, COPD, chronic emphysema (on 4L O2 at home), history of sCHF, pulmonary hypertension who presented with shortness of breath and subjective fevers found to have possible second degree heart block on ED EKG concerning for COPD exacerbation. He is on IV antibiotics and steroid taper at this time. PROBLEMS: 1. Hx emphysema with worsening SOB with respiratory failure: -Continue IV Unasyn for empiric treatment, Prednisone, Protonix, Duonebs -s/p 1 dose Levaquin. Will hold off on any further doses so as to not increase QTC interval, currently 420 -Patient is at his home dose of O2 at this time -CTA negative for PE, but there is concern for fibrotic changes with or without pneumonitis. -Procalcitonin and Respiratory panel pending -Cardiology consulted ([facility]). Appreciate recommendations. 2. ?Type 2 second-degree AV block: -Will order another EKG -All electrolytes WNL at this time -Echo ordered -Cardiology consult placed 3. History of chronic systolic/diastolic CHF (EF 50-55%): -Appears close to euvolemic on my exam today. BNP 700 on admission -Will await read on repeat Echo -Continue 2g sodium diet, daily weights 4. DM2: -SSI with hypoglycemic protocol DISPOSITION: Pending clinical improvement. Attending attestation: I evaluated and examined the patient in person; I discussed the care with Resident in detail and agree with the plan above. VS, I&O, 24H, Fishbone Vital Signs/I&O Vital Signs Date Time Temp Pulse Resp B/P (MAP) Pulse Ox O2 Delivery O2 Flow Rate FiO2 02/20/20 07:49 97.7 22 149/88 (108) 94 Nasal Cannula 4.0 02/20/20 04:00 63 I&O- Last 24 Hours up to 6 AM 02/20/20 06:00 Intake Total 510 ml Output Total 400 ml Balance 110 ml Laboratory Data 24H LABS Laboratory Tests 2 02/19/20 14:56: Immature Granulocyte % (Auto) 0.8, Neutrophils (%) (Auto) 88.4H, Lymphocytes (%) (Auto) 5.0L, Monocytes (%) (Auto) 5.5H, Eosinophils (%) (Auto) 0.0, Basophils (%) (Auto) 0.3, Neutrophils # (Auto) 18.9H, Lymphocytes # (Auto) 1.1L, Monocytes # (Auto) 1.2H, Eosinophils # (Auto) 0.0, Basophils # (Auto) 0.1, Nucleated Red Blood Cells % (auto) 0.0, Blood Gas Bicarbonate Standard 31.8, Venous Blood pH 7.412, Venous Blood Partial Pressure CO2 56.7H, Venous Blood Partial Pressure O2 58.5H, Venous Blood Total Carbon Dioxide 37.0H, Venous Blood HCO3 35.3H, Venous Blood Oxygen Saturation 90.5H, Venous Blood Base Excess 8.3H, Anion Gap 7L, Glomerular Filtration Rate > 60.0, Estimated Mean Plasma Glucose 146H, Hemo globin A1c 6.7, Calcium Level 9.1, Total Bilirubin 0.7, Direct Bilirubin 0.2, Aspartate Amino Transf (AST/SGOT) 22, Alanine Aminotransferase (ALT/SGPT) 49, Alkaline Phosphatase 89, Total Creatine Kinase 40, Creatine Kinase MB < 1.0, Creatine Kinase MB Relative Index 2.50, Troponin I < 0.02, AB-Hla-X-Type Natriuretic Peptide 707H, Total Protein 7.7, Albumin 3.4, Albumin/Globulin Ratio 0.79L, Thyroid Stimulating Hormone (TSH) 1.810 02/19/20 15:09: Coronavirus (COVID-19)(PCR) NEGATIVE 02/19/20 20:59: Troponin I < 0.02, Lactic Acid Level 1.5, Magnesium Level 2.3 02/19/20 21:19: Bedside Glucose (Misc Panel) 264H 02/20/20 03:11: Nucleated Red Blood Cells % (auto) 0.0, Anion Gap 5L, Glomerular Filtration Rate > 60.0, Calcium Level 8.1L, Troponin I < 0.02 CBC/BMP Laboratory Tests 02/19/20 14:56 02/20/20 03:11 Microbiology Microbiology 02/19/20 Blood Culture, Received Pending 02/19/20 - Final, Complete 02/19/20 Blood Culture, Received Pending GME ATTESTATION GME ATTESTATION My faculty preceptor for this patient encounter was physically present during the encounter and was fully available. All aspects of the patient interview, examination, medical decision making process, and medical care plan development were reviewed and approved by the faculty preceptor. The faculty preceptor is aware and concurs with the plan as stated in the body of this note and will attest to such by his/her cosignature. JOSÉ MIGUEL HERNÁNDEZ MD February 20, 2020 11:15 MARGE FOSS MD February 21, 2020 16:19
--- NOTE | 2020-02-20 16:12 | ECGEPIP ---
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 An incomplete right bundle branch block pattern is noted. Most recent tracing on 02/19/2020 at 15:15. No significant changes. In 2016, first-degree block was noted. Electronically Signed on 02-20-2020 16:12:09 EDT by Gilbert Ritter
--- NOTE | 2020-02-20 20:56 | ECHO ---
DATE OF PROCEDURE: 02/20/2020 DATE OF : 1950 REASON FOR THE STUDY: Abnormal EKG. 2D MEASUREMENTS: LA: 4.4 cm IVC: 1.7 cm DOPPLER MEASUREMENTS: Peak velocity across the aortic valve: 1.1 meters per second. Peak velocity across the LVOT: 0.8 meters per second. 2D COMMENTS: 1. Technically limited study due to poor acoustic window. 2. Subjectively, the left ventricular size appeared to be normal as well as the left ventricular wall thickness. There may be mild concentric left ventricular hypertrophy. The estimated global left ventricular systolic ejection fraction is 55%. 3. Mildly enlarged left atrium. The right atrium and the right ventricle appeared to be moderately enlarged. The right ventricular free wall might be mildly hypokinetic. 4. The atrial septum did not reveal any defect or shunt. 5. Normal aortic root. 6. A small pericardial effusion was noted, no evidence of cardiac tamponade. 7. Mildly calcified aortic valve with normal leaflet excursion. Minimally calcified mitral annulus with normal anterior mitral valve leaflet motion. Normal tricuspid valve. The pulmonic valve and proximal pulmonary artery branches were not well visualized. 8. The inferior vena cava was normal in size, central venous pressure is most likely normal.. DOPPLER: In limited views, trace mitral regurgitation, trace tricuspid regurgitation, and trace pulmonic regurgitation detected. Assessment of the left ventricular diastolic function was limited. Assessment of the pulmonary artery pressure also was limited by artifact. IMPRESSION: 1. Technically limited study due to poor acoustic window. 2. Low normal global left ventricular systolic function. Assessment of the left ventricular diastolic function was inconclusive. 3. Mildly enlarged left atrium with trace mitral regurgitation. 4. Dilated right atrium and right ventricle. There is probably moderate to severe pulmonary hypertension. No intracardiac shunt detected. 5. A small pericardial effusion was noted, no evidence of cardiac tamponade. 6. This was compared with most recent echocardiogram in the system, and at that time, left ventricular systolic function was normal. The right atrium and the right ventricle were dilated with probably moderate to moderately severe pulmonary hypertension, moderate tricuspid regurgitation. There were some features of left ventricular diastolic dysfunction. A small pericardial effusion also was present. MTDD
[2020-02-20] MEDS: PANTOPRAZOLE 40MG TAB (PROTONIX) PO SCH (21:46)
[2020-02-21] VITALS (21 sets, daily range): BP systolic 106–122; BP diastolic 64–88; O2SAT 84–96
[2020-02-21] MEDS: AMPICILLIN SOD/SULBACTAM SOD 1.5 GM in D5W MINI-BAG PLUS 50 ML IV SCH ×2 (00:13→06:36)
[2020-02-21] MEDS: IPRATROPIUM 0.5MG/ALBUTEROL 2.5MG INH SOL UD 3ML (DUONEB)(J7620) NEB SCH ×4 (01:33→20:00)
[2020-02-21] MEDS: HumaLOG INSULIN (NovoLOG) PER UNIT SC SCH ×4 (07:30→20:49)
[2020-02-21 07:48] LABS: BASO % 0.2 % (0.0-1.0); EOS # 0.1 10^3/uL (0.0-0.5); EOS % 0.7 % (0.0-3.0); HEMATOCRIT 45.9 % (42.0-52.0); HEMOGLOBIN 14.6 g/dl (13.5-17.5); LYMPH # 0.8 10^3/uL (1.5-5.0); LYMPH % 7.5 % (24.0-44.0); MEAN CORPUSCULAR HEMOGLOBIN 30.5 pg (27.0-33.0); MEAN CORPUSCULAR HGB CONC 31.8 g/dl (32.0-36.5); MONO # 0.8 10^3/uL (0.0-0.8); MONO % 7.9 % (0.0-5.0); NEUTROPHILS # 8.6 10^3/uL (1.5-8.5); PLATELET COUNT, AUTOMATED 122 10^3/uL (150-450); RED BLOOD COUNT 4.78 10^6/uL (4.30-6.10); WHITE BLOOD COUNT 10.3 10^3/uL (4.0-10.0)
[2020-02-21 08:15] LABS: ALT/SGPT 35 U/L (12-78); BILIRUBIN,TOTAL 0.5 MG/DL (0.2-1.0); BLOOD UREA NITROGEN 19 MG/DL (7-18); CARBON DIOXIDE LEVEL 42 MEQ/L (21-32); CHLORIDE LEVEL 97 MEQ/L (98-107); CREATININE FOR GFR 0.88 MG/DL (0.70-1.30); GLOMERULAR FILTRATION RATE > 60.0 (>49); GLUCOSE, FASTING 144 MG/DL (70-100); MAGNESIUM LEVEL 2.1 MG/DL (1.8-2.4); PHOSPHORUS LEVEL 3.6 MG/DL (2.5-4.9); POTASSIUM SERUM 3.4 MEQ/L (3.5-5.1); SODIUM LEVEL 143 MEQ/L (136-145); TOTAL PROTEIN 6.7 GM/DL (6.4-8.2)
[2020-02-21] MEDS: ENOXAPARIN 40MG/0.4ML SYRINGE (J1650 PER 10MG) SC SCH (09:00)
[2020-02-21] MEDS: ASPIRIN 81 MG ENTERIC TAB PO SCH (09:46)
[2020-02-21] MEDS: FINASTERIDE 5 MG TAB PO SCH (09:46)
[2020-02-21] MEDS: predniSONE 20 MG TAB PO SCH (09:47)
[2020-02-21] MEDS: VITAMIN D 1,000 INTERNATIONAL UNITS TABLET PO SCH (09:47)
[2020-02-21] MEDS: FUROSEMIDE 40 MG TAB PO SCH ×2 (09:47→18:31)
[2020-02-21] MEDS ORDERED: POTASSIUM CHLORIDE 10 MEQ SR TABLET PO ONE (10:15)
[2020-02-21] MEDS ORDERED: KCL 10MEQ/100ML SWI (KRUN) 10 MEQ in IV 1 EA IV ONE (10:15)
--- NOTE | 2020-02-21 10:29 | IPNPDOC ---
Date Seen The patient was seen on 02/21/20. Progress Note SUBJECTIVE: Patient feels some chest tightness today but he states no worse than his normal. He worked with and passed PT. No abnormal cardiac rhythm from overnight. No other complaints or issues this morning. OBJECTIVE PHYSICAL EXAMINATION: VITAL SIGNS: Please see below. GENERAL APPEARANCE: Laying in bed, appears stated age, no acute distress, calm, cooperative HEENT: EOMI, PERRLA, neck is supple with no thyromegaly or lymphadenopathy RESPIRATORY: Scattered wheezes and rhonchi in all lobes bilaterally, good air entry CARDIOVASCULAR: no JVD, RRR, no murmurs/rubs/gallops, normal S1 and S2 ABDOMEN: +BS, soft, nontender to palpation in all four quadrants, no masses/organomegaly EXTREMITIES: no clubbing, cyanosis or edema noted, chronic venous stasis in bilateral lower extremities noted NEUROLOGICAL: CN 2-12 intact, No obvious focal deficits PSYCHIATRIC: normal mood/affect Skin: No rashes or ulcers appreciated, warm and well-perfused LN: No significant cervical or inguinal lymphadenopathy LABORATORY DATA, IMAGING STUDIES, MICROBIOLOGY: Please see below. IMAGING: Chest x-ray "IMPRESSION: Chronic changes as described above. I cannot rule out the possibility of a new abnormal left lung opacity. CT examination of the chest is recommended." CTA chest "IMPRESSION: No pulmonary embolism. Moderate to severe central lobular emphysema with chronic fibrotic changes. Superimposed pneumonitis not excluded. Liver demonstrates lobular surface contour consistent with cirrhosis. Hepatic calcifications. Enlargement of the central pulmonary arteries. Clinical correlation with pulmonary arterial hypertension." Echocardiogram: DOPPLER MEASUREMENTS: Peak velocity across the aortic valve: 1.1 meters per second. Peak velocity across the LVOT: 0.8 meters per second. 2D COMMENTS: 1. Technically limited study due to poor acoustic window. 2. Subjectively, the left ventricular size appeared to be normal as well as the left ventricular wall thickness. There may be mild concentric left ventricular hypertrophy. The estimated global left ventricular systolic ejection fraction is 55%. 3. Mildly enlarged left atrium. The right atrium and the right ventricle appeared to be moderately enlarged. The right ventricular free wall might be mildly hypokinetic. 4. The atrial septum did not reveal any defect or shunt. 5. Normal aortic root. 6. A small pericardial effusion was noted, no evidence of cardiac tamponade. 7. Mildly calcified aortic valve with normal leaflet excursion. Minimally calcified mitral annulus with normal anterior mitral valve leaflet motion. Normal tricuspid valve. The pulmonic valve and proximal pulmonary artery branches were not well visualized. 8. The inferior vena cava was normal in size, central venous pressure is most likely normal.. DOPPLER: In limited views, trace mitral regurgitation, trace tricuspid regurgitation, and trace pulmonic regurgitation detected. Assessment of the left ventricular diastolic function was limited. Assessment of the pulmonary artery pressure also was limited by artifact. IMPRESSION: 1. Technically limited study due to poor acoustic window. 2. Low normal global left ventricular systolic function. Assessment of the left ventricular diastolic function was inconclusive. 3. Mildly enlarged left atrium with trace mitral regurgitation. 4. Dilated right atrium and right ventricle. There is probably moderate to severe pulmonary hypertension. No intracardiac shunt detected. 5. A small pericardial effusion was noted, no evidence of cardiac tamponade. 6. This was compared with most recent echocardiogram in the system, and at that time, left ventricular systolic function was normal. The right atrium and the right ventricle were dilated with probably moderate to moderately severe pulmonary hypertension, moderate tricuspid regurgitation. There are some features of left ventricular diastolic dysfunction. A small pericardial effusion also was present. DVT prophylaxis ordered?: Lovenox ASSESSMENT AND PLAN: This is a DM2, COPD, chronic emphysema (on 4L O2 at home), history of sCHF, pulmonary hypertension who presented with shortness of breath and subjective fevers found to have possible second degree heart block on ED EKG concerning for COPD exacerbation. PROBLEMS: 1. Hx emphysema with worsening SOB with respiratory failure: -IV Unasyn stopped as procalcitonin was found to be 0.11. Less likely bacterial infection -Continue Prednisone, Protonix, Duonebs, home inhalers (Spiriva and Advair) ordered -Patient is at his home dose of O2 at this time -CTA negative for PE, but there is concern for fibrotic changes with or without pneumonitis. 2. ?Type 2 second-degree AV block: -EKG demonstrates what is likely 2nd degree Type 1 block -Potassium found to be 3.4. Replaced with krun x1 + 40mEq PO potassium chloride -Echo demonstrates moderate to severe pulmonary hypertension, likely 2/2 lung disease vs obesity -Cardiology consult placed 3. History of chronic systolic/diastolic CHF (EF 50-55%): -Appears close to euvolemic on my exam today. BNP 700 on admission -Continue 2g sodium diet, daily weights 4. DM2: A1c 6.7% -SSI with hypoglycemic protocol. Patient is refusing insulin. He was educated on the need for close glucose monitoring. DISPOSITION: Pending cardiology consultation. Attending attestation: I evaluated and examined the patient in person; I discussed the care with Resident in detail and agree with the plan above. VS, I&O, 24H, Fishbone Vital Signs/I&O Vital Signs Date Time Temp Pulse Resp B/P (MAP) Pulse Ox O2 Delivery O2 Flow Rate FiO2 02/21/20 08:00 90 Nasal Cannula 02/21/20 07:22 97.4 65 20 122/74 (90) 4.0 I&O- Last 24 Hours up to 6 AM 02/21/20 06:00 Intake Total 660 ml Output Total 1875 ml Balance -1215 ml Laboratory Data 24H LABS Laboratory Tests 2 02/20/20 11:55: Bedside Glucose (Misc Panel) 189H 02/20/20 21:39: Bedside Glucose (Misc Panel) 240H 02/21/20 07:29: Immature Granulocyte % (Auto) 0.7, Neutrophils (%) (Auto) 83.0H, Lymphocytes (%) (Auto) 7.5L, Monocytes (%) (Auto) 7.9H, Eosinophils (%) (Auto) 0.7, Basophils (%) (Auto) 0.2, Neutrophils # (Auto) 8.6H, Lymphocytes # (Auto) 0.8L, Monocytes # (Auto) 0.8, Eosinophils # (Auto) 0.1, Basophils # (Auto) 0.0, Nucleated Red Blood Cells % (auto) 0.0, Anion Gap 4L, Glomerular Filtration Rate > 60.0, Calcium Level 9.0, Phosphorus Level 3.6, Magnesium Level 2.1, Total Bilirubin 0.5, Aspartate Amino Transf (AST/SGOT) 16, Alanine Aminotransferase (ALT/SGPT) 35, Alkaline Phosphatase 68, Total Protein 6.7, Albumin 3.0L, Albumin/Globulin Ratio 0.81L CBC/BMP Laboratory Tests 02/21/20 07:29 Microbiology Microbiology 02/19/20 Blood Culture - Preliminary, Resulted No growth after 24 hours . All specim... 02/19/20 - Final, Complete 02/19/20 Blood Culture - Preliminary, Resulted No growth after 24 hours . All specim... GME ATTESTATION GME ATTESTATION My faculty preceptor for this patient encounter was physically present during the encounter and was fully available. All aspects of the patient interview, examination, medical decision making process, and medical care plan development were reviewed and approved by the faculty preceptor. The faculty preceptor is aware and concurs with the plan as stated in the body of this note and will attest to such by his/her cosignature. JOSÉ MIGUEL HERNÁNDEZ MD February 21, 2020 10:29 MARGE FOSS MD February 21, 2020 16:27
[2020-02-21] MEDS: ADVAIR HFA 230/21MCG INHALER INH SCH ×2 (11:42→20:43)
[2020-02-21] MEDS: TIOTROPIUM INHALER/CAPSULE (SPIRIVA) INH SCH (11:42)
[2020-02-21] MEDS: PANTOPRAZOLE 40MG TAB (PROTONIX) PO SCH (20:49)
[2020-02-22] MEDS: IPRATROPIUM 0.5MG/ALBUTEROL 2.5MG INH SOL UD 3ML (DUONEB)(J7620) NEB SCH ×2 (00:35→07:54)
[2020-02-22 02:00] VITALS: BP 105/62
[2020-02-22 06:00] VITALS: BP 122/78
[2020-02-22 06:42] LABS: HEMATOCRIT 45.9 % (42.0-52.0); HEMOGLOBIN 14.5 g/dl (13.5-17.5); MEAN CORPUSCULAR HEMOGLOBIN 30.3 pg (27.0-33.0); MEAN CORPUSCULAR HGB CONC 31.6 g/dl (32.0-36.5); MEAN CORPUSCULAR VOLUME 95.8 fl (80.0-96.0); PLATELET COUNT, AUTOMATED 146 10^3/uL (150-450); RED BLOOD COUNT 4.79 10^6/uL (4.30-6.10); WHITE BLOOD COUNT 11.3 10^3/uL (4.0-10.0)
[2020-02-22] MEDS: HumaLOG INSULIN (NovoLOG) PER UNIT SC SCH ×2 (07:30→12:56)
[2020-02-22] MEDS: ADVAIR HFA 230/21MCG INHALER INH SCH (07:54)
[2020-02-22] MEDS: TIOTROPIUM INHALER/CAPSULE (SPIRIVA) INH SCH (07:54)
[2020-02-22] MEDS: predniSONE 20 MG TAB PO SCH (08:11)
[2020-02-22] MEDS: ASPIRIN 81 MG ENTERIC TAB PO SCH (08:11)
[2020-02-22] MEDS: FUROSEMIDE 40 MG TAB PO SCH (08:11)
[2020-02-22] MEDS: VITAMIN D 1,000 INTERNATIONAL UNITS TABLET PO SCH (08:12)
[2020-02-22] MEDS: ENOXAPARIN 40MG/0.4ML SYRINGE (J1650 PER 10MG) SC SCH (08:12)
[2020-02-22] MEDS: FINASTERIDE 5 MG TAB PO SCH (08:12)
[2020-02-22] MEDS ORDERED: SODIUM CHLORIDE NASAL 0.65% SPRAY BTL (OCEAN) SCH (09:00)
[2020-02-22 10:00] VITALS: BP 143/80
--- NOTE | 2020-02-22 11:25 | DS.PDOC ---
Discharge Summary General Date of Admission February 19, 2020 at 19:10 Date of Discharge February 22, 2020 Primary Care Physician: Erik Calderon MD Attending Physician: MARGE FOSS MD Specialist/Consultants Involve: HERMAN DALLAS MD Discharge Summary PROCEDURES PERFORMED DURING STAY: [None]. ADMITTING DIAGNOSES: 1. ?Second-degree type 1 AV block 2. Acute emphysema 3. Diastolic/systolic CHF 4. NIDDM2 DISCHARGE DIAGNOSES: 1. Emphysema dependent on O2 2. Intermittent Mobitz I, First degree AV block COMPLICATIONS/CHIEF COMPLAINT: Copd, Pneumonia, Sirs. HISTORY OF PRESENT ILLNESS: This is a 69-year-old gentleman who reports coming to the also because he's had shortness of breath that began "5 years ago". Today, he came to the hospital because yesterday, "it was very difficult to breathe" and he had fevers high as 100.9. At his baseline. He has shortness of breath is worse with exertion, but this has been more prominent than usual. He denies any changes in his chronic cough, runny nose, chills, muscle aches, chest pain, weight gain, or lower extremity edema. Per discussion with Dr. Haines the patient's EKG showed new type II second-degree AV block; Dr. Dallas recommended trending troponin and ordering an echo. The CT was negative for PE but showed possible aspiration pneumonitis, therefore the patient was given levofloxacin, Solu-Medrol and nebs to manage possible pneumonia and acute COPD. HOSPITAL COURSE: The patient was admitted for SOB and fevers and was also found to have Mobitz I AV block. He underwent Echocardiogram which demonstrated no major changes from previous; systolic and diastolic CHF with elevated R-sided pr essures likely 2/2 his lung disease. He remained afebrile with all labs WNL during hosptialization. He was evaluated and cleared by PT safe for discharge home. He remained on his home dose O2. DISCHARGE MEDICATIONS: Please see below. ALLERGIES: Please see below. PHYSICAL EXAMINATION ON DISCHARGE: VITAL SIGNS: Please see below. GENERAL APPEARANCE: Laying in bed, appears stated age, no acute distress, calm, cooperative HEENT: EOMI, PERRLA, neck is supple with no thyromegaly or lymphadenopathy RESPIRATORY: Scattered wheezes and rhonchi in all lobes bilaterally, good air entry CARDIOVASCULAR: no JVD, RRR, no murmurs/rubs/gallops, normal S1 and S2 ABDOMEN: +BS, soft, nontender to palpation in all four quadrants, no masses/organomegaly EXTREMITIES: no clubbing, cyanosis or edema noted, chronic venous stasis in bilateral lower extremities noted NEUROLOGICAL: CN 2-12 intact, No obvious focal deficits PSYCHIATRIC: normal mood/affect Skin: No rashes or ulcers appreciated, warm and well-perfused LN: No significant cervical or inguinal lymphadenopathy LABORATORY DATA: Please see below. IMAGING: Chest x-ray "IMPRESSION: Chronic changes as described above. I cannot rule out the possibility of a new abnormal left lung opacity. CT examination of the chest is recommended." CTA chest "IMPRESSION: No pulmonary embolism. Moderate to severe central lobular emphysema with chronic fibrotic changes. Superimposed pneumonitis not excluded. Liver demonstrates lobular surface contour consistent with cirrhosis. Hepatic calcifications. Enlargement of the central pulmonary arteries. Clinical correlation with pulmonary arterial hypertension." Echocardiogram: DOPPLER MEASUREMENTS: Peak velocity across the aortic valve: 1.1 meters per second. Peak velocity across the LVOT: 0.8 meters per second. 2D COMMENTS: 1. Technically limited study due to poor acoustic window. 2. Subjectively, the left ventricular size appeared to be normal as well as the left ventricular wall thickness. There may be mild concentric left ventricular hypertrophy. The estimated global left ventricular systolic ejection fraction is 55%. 3. Mildly enlarged left atrium. The right atrium and the right ventricle appeared to be moderately enlarged. The right ventricular free wall might be mildly hypokinetic. 4. The atrial septum did not reveal any defect or shunt. 5. Normal aortic root. 6. A small pericardial effusion was noted, no evidence of cardiac tamponade. 7. Mildly calcified aortic valve with normal leaflet excursion. Minimally calcified mitral annulus with normal anterior mitral valve leaflet motion. Normal tricuspid valve. The pulmonic valve and proximal pulmonary artery branches were not well visualized. 8. The inferior vena cava was normal in size, central venous pressure is most likely normal.. DOPPLER: In limited views, trace mitral regurgitation, trace tricuspid regurgitation, and trace pulmonic regurgitation detected. Assessment of the left ventricular diastolic function was limited. Assessment of the pulmonary artery pressure also was limited by artifact. IMPRESSION: 1. Technically limited study due to poor acoustic window. 2. Low normal global left ventricular systolic function. Assessment of the left ventricular diastolic function was inconclusive. 3. Mildly enlarged left atrium with trace mitral regurgitation. 4. Dilated right atrium and right ventricle. There is probably moderate to severe pulmonary hypertension. No intracardiac shunt detected. 5. A small pericardial effusion was noted, no evidence of cardiac tamponade. 6. This was compared with most recent echocardiogram in the system, and at that time, left ventricular systolic function was normal. The right atrium and the right ventricle were dilated with probably moderate to moderately severe pulmonary hypertension, moderate tricuspid regurgitation. There are some features of left ventricular diastolic dysfunction. A small pericardial effusion also was present. PROGNOSIS: fair ACTIVITY: [As tolerated]. DIET: sodium-restricted DISCHARGE PLAN: Home DISPOSITION: . DISCHARGE INSTRUCTIONS: 1. Follow up with PCP and Cardiology within 14 days ITEMS TO FOLLOWUP ON ON OUTPATIENT: None DISCHARGE CONDITION: [Stable]. TIME SPENT ON DISCHARGE: Greater than minutes. Vital Signs/I&Os Vital Signs Date Time Temp Pulse Resp B/P (MAP) Pulse Ox O2 Delivery O2 Flow Rate FiO2 02/22/20 10:32 4.0 02/22/20 10:00 97.5 97 18 143/80 (101) 85 02/22/20 06:00 Nasal Cannula I&O- Last 24 Hours up to 6 AM 02/22/20 06:00 Intake Total 1080 ml Output Total 800 ml Balance 280 ml Laboratory Data Labs 24H Laboratory Tests 2 02/21/20 12:15: Bedside Glucose (Misc Panel) 203H 02/21/20 18:27: Bedside Glucose (Misc Panel) 357H 02/21/20 20:34: Bedside Glucose (Misc Panel) 209H 02/22/20 05:53: Bedside Glucose (Misc Panel) 143H 02/22/20 06:05: Nucleated Red Blood Cells % (auto) 0.0 CBC/BMP Laboratory Tests 02/22/20 06:05 FSBS Laboratory Tests Test 02/21/20 12:15 02/21/20 18:27 02/21/20 20:34 02/22/20 05:53 Range/Units Bedside Glucose (Misc Panel) 203 357 209 143 80-115 MG/DL Microbiology Microbiology 02/19/20 Blood Culture - Preliminary, Resulted No Growth after 48 hours. All Specime... 02/19/20 - Final, Complete 02/19/20 Blood Culture - Preliminary, Resulted No Growth after 48 hours. All Specime... Discharge Medications Scheduled Aspirin (Aspir 81) 81 Mg Tab, 81 MG PO DAILY, (Reported) Cholecalciferol (Vitamin D3) (Vitamin D3) 1,000 Unit Tablet, 2,000 UNITS PO DAILY, (Reported) Fexofenadine HCl (Federica Allergy) 180 Mg Tablet, 180 MG PO DAILY, (Reported) Finasteride (Finasteride) 5 Mg Tablet, 5 MG PO DAILY, (Reported) Furosemide (Furosemide) 40 Mg Tablet, 40 MG PO BID, (Reported) TAKES AT 0600/1800 Gluc Alexis/Chondro Alexis A/Vit C/Mn (Glucosamine-Chondroitin Cap) 1 Cap Cap, 2 CAP PO BID, (Reported) Guaifenesin (Mucinex) 600 Mg Tab, 1,200 MG PO BID, (Reported) Multivitamins (Thera M Plus Tablet) 1 Tab Tab, 1 TAB PO BID, (Reported) [place]-3 Fatty Acids/Fish Oil (Fish Oil 1,000 mg Capsule) 1 Each Capsule, 1,000 MG PO BID, (Reported) Prednisone (Prednisone) 10 Mg Tablet, 10 MG PO DAILY, (Reported) Salmeterol/Fluticasone (Advair 500-50 Diskus) 28 Puff/Inhaler Aerp, 1 PUFF INH BID, (Reported) Ubidecarenone (Coenzyme Q10) 100 Mg Tab, 200 MG PO DAILY, (Reported) Scheduled PRN Acetaminophen (Acetaminophen) 325 Mg Tablet, 650 MG PO Q4H PRN for PAIN, (Reported) Albuterol Sulf (Albuterol Sulfate) 2.5 Mg/3 Ml Nebu, 2.5 MG INH Q4H PRN for SHORTNESS OF BREATH, (Reported) Albuterol Sulfate (Ventolin Hfa) 108 Mcg/Act Aer, 2 PUFFS INH Q4H PRN for SHORTNESS OF BREATH, (Reported) Sildenafil Citrate (Sildenafil Citrate) 100 Mg Tablet, 100 MG PO ASDIRECTED PRN for ERECTILE DYSFUNCTION, (Reported) Allergies Coded Allergies: No Known Allergies (Unverified , 11/07/19) GME ATTESTATION GME ATTESTATION My faculty preceptor for this patient encounter was physically present during the encounter and was fully available. All aspects of the patient interview, examination, medical decision making process, and medical care plan development were reviewed and approved by the faculty preceptor. The faculty preceptor is aware and concurs with the plan as stated in the body of this note and will attest to such by his/her cosignature. JOSÉ MIGUEL HERNÁNDEZ MD February 22, 2020 11:25
--- NOTE | 2020-02-25 06:33 | CR ---
DATE OF CONSULTATION: 02/21/2020 REASON FOR CONSULTATION: Abnormal electrocardiogram (EKG) REFERRING PROVIDER: Dr. Blackman HISTORY OF PRESENT ILLNESS: 69-year-old male with a history of chronic obstructive pulmonary disease (COPD) for which he has been on oxygen at 4 liters permanent and diabetes mellitus who came to the ER because of low grade fever and shortness of breath with activities associated with increasing cough. He denied any chest pain or palpitations. He was found to have an abnormal EKG and he was admitted for further management and monitoring. Cardiology consult was called. When I saw Mr. Royal Garcia in the PCU, he was sitting in his bed, in no acute distress at rest and is looking forward to home. He has been feeling much better. He denies any chest pain and his shortness of breath and his cough has improved significantly. He did have some pedal edema on admission, but this also has improved. He denies any fever or chills. He has no nausea, vomiting, diarrhea, melena or hematemesis. PAST MEDICAL HISTORY: He has a past medical history positive for chronic obstructive pulmonary disease (COPD)/emphysema for which he has been on oxygen supplement 4 liters per minute and he sees Dr. Pedro Schwab. He was recently evaluated at the office because of shortness of breath and had a nuclear stress test that negative for ischemia or infarction and his left ventricular ejection fraction (LVEF) was normal. The right ventricle was reported to be dilated. He also has a history of abnormal EKG, diastolic heart failure, diabetes mellitus, chronic venous insufficiency, gastroesophageal reflux disease, benign prostatic hypertrophy (BPH), and diverticulosis. There is no known history of coronary artery disease, myocardial infarction, atrial fibrillation, transient ischemic attack (TIA)/CVA, left ventricular systolic dysfunction, sudden cardiac . There is no history of thyroid disorders. PAST SURGICAL HISTORY: Past surgical history is positive for right adrenal gland adenoma, cholecystectomy, and umbilical hernia repair. MEDICATIONS AT HOME: - aspirin 81 mg p.o. daily - vitamin D 1000 unit tablets and 2 tablets daily - Federica 180 mg p.o. daily - finasteride 5 mg p.o. daily - Lasix 40 mg p.o. b.i.d. - glucosamine - Mucinex as directed and as needed - multivitamins 1 tablet p.o. twice a day - fish oil 1000 mg p.o. twice a day - prednisone 10 p.o. daily - Advair Diskus 5/50 one puff via inhalation twice a day - CoQ10 100 mg tablet and 2 tablets daily - Tylenol as needed for pain - albuterol nebulizer and MDI as needed for shortness of breath - Sildenafil 100 mg tablet as directed for ED FAMILY HISTORY: Noncontributory. SOCIAL HISTORY: The patient denies any smoking, EtOH abuse or illicit drugs. ALLERGIES: NO KNOWN DRUG ALLERGIES. The patient is a full code. PHYSICAL EXAMINATION: The patient is alert and oriented, in no acute distress at rest. His vital signs when I saw him revealed a blood pressure of 121/88 with a pulse of 99, respirations 20 and his maximum temperature was 98.4 degrees Fahrenheit with an oxygen saturation of 90% on 4 liters cannula. Examination of the Head: Atraumatic. Neck is supple and I could not appreciate any carotid bruits. Lungs did not reveal any wheezing or crackles. The heart examination revealed irregular heart sounds without gallops. The PMI is slightly displaced inferiorly. There is no rub. I could not appreciate any murmurs. Abdomen is unremarkable. Extremities revealed no pedal edema. Neurological examination was negative for focal deficit. LABORATORY DATA: BMP on 02/21/2020, revealed a sodium of 143, potassium 3.4, chloride 97, CO2 42, BUN 19, creatinine 0.88, GFR more than 60, fasting glucose 144. Serum calcium was 9.0. Liver enzymes revealed a total bilirubin of 0.5 AST 16, ALT 35, alkaline phosphatase 68, total protein 6.7 and albumin 3.0. Serum magnesium was 2.1. Serum troponin has been negative, less than 0.02. Pro BNP on admission 02/19/2020 was 707. Serum TSH on admission was 1.8. Hemoglobin A1c was 6.7. BUN and creatinine on admission were 21 and 1.0 respectively, 02/19/2020. CBC on 02/21/2020 revealed WBC of 10.3, hemoglobin 14.6, hematocrit 45.9 and platelet count 122,000. On admission, CBC revealed a WBC of 21.4, hemoglobin 16.4, hematocrit 51.0 and platelets of 176,000 on 02/19/2020. ABG on admission on 02/19/2020 revealed VBG with a pH of 7.41, pCO2 of 56.7 and pO2 58.5. COVID-19 PCR was negative. Chest x-ray on admission on 02/19/2020 revealed chronic changes and a left lung opacity could not be ruled out. A chest CT was recommended. Chest CT or CTA of the chest on admission was compared with prior CT on 11/07/2019, revealed no pulmonary embolism. There was moderate to severe central alveolar emphysema with chronic fibrotic changes and superimposed pneumonitis was not excluded. There are findings in the liver consistent with cirrhosis of the liver, enlargement of the central pulmonary arteries also noted consistent with pulmonary artery hypertension. EKG on admission revealed a rate of 81 beats per minute with Mobitz I second degree block. There is also right axis deviation and nonspecific ST-T abnormalities, incomplete right bundle branch block. EKG on 02/20/2020 did not reveal any changes, but heart rate was slower. IMPRESSION: Abnormal EKG that was thought to be Mobitz II second-degree block, but upon reviewing the EKGs, it was Mobitz I second-degree AV block. I have reviewed all the patient's EKGs and he has had that problem in the past and also underlying first-degree AV block. His telemetry were reviewed and revealed first-degree block. The case was discussed with the resident covering the patient and she was told that there is no other issues, he may be discharged home and to avoid any AV blocking agents such as beta ness, calcium channel ness, digoxin, and even clonidine. Regarding his shortness of breath, he stated it is at his baseline at this present time and he had nuclear stress test and the report was reviewed, it was negative for ischemia/infarction and he has a normal LVEF. He may be discharged on the same meds and he will follow up as outpatient. It seems that he has recently postponed his office visit because of the COVID-19 statewide recommendations. History of diabetes mellitus, seems to be on a diet. History of COPD, severe, and has been on nasal cannula at 4 liters per minute and he will continue to follow with Dr. Schwab. It was a pleasure to participate in the care of Mr. Royal Garcia for his underlying cardiac condition. Once again, he is stable to go home and this was discussed with the resident.
== END 2020-02-22 13:20 | disposition home or self-care (01) | DRG 140 ==
LOC: M ED 14:24 → M ED INP 19:10 → ENRESERV 19:41 → M PCU 20:42 → ENRESERV 02-21 15:16 → M MSPAV 02-21 20:36
PROVIDERS: ADMIT Internal Medicine; ATTEND Internal Medicine
DX: J43.2 Centrilobular emphysema (principal); J96.10 Chronic respiratory failure, unspecified whether with hypoxia or hypercapnia; I27.20 Pulmonary hypertension, unspecified; I50.42 Chronic combined systolic (congestive) and diastolic (congestive) heart failure; K76.6 Portal hypertension; Z99.81 Dependence on supplemental oxygen; K74.60 Unspecified cirrhosis of liver; E11.9 Type 2 diabetes mellitus without complications; I44.4 Left anterior fascicular block; I87.2 Venous insufficiency (chronic) (peripheral); K57.90 Diverticulosis of intestine, part unspecified, without perforation or abscess without bleeding; Z90.49 Acquired absence of other specified parts of digestive tract; Z87.891 Personal history of nicotine dependence; E66.9 Obesity, unspecified; Z68.32 Body mass index [BMI] 32.0-32.9, adult; Z79.82 Long term (current) use of aspirin; Z79.52 Long term (current) use of systemic steroids; Z79.899 Other long term (current) drug therapy

== ENCOUNTER → 2020-02-26 | Outpatient (CLI) | payer BC, MEDICARE ==
[~2020-02-26] MED LIST changes: +ACET1TAB55 PO; +SILD100T PO; +VITAD1000T PO
[2020-02-26 12:43] LABS: BASO # 0.1 10^3/uL (0.0-0.2); BASO % 0.6 % (0.0-1.0); EOS # 0.2 10^3/uL (0.0-0.5); EOS % 1.4 % (0.0-3.0); HEMATOCRIT 49.9 % (42.0-52.0); HEMOGLOBIN 16.2 g/dl (13.5-17.5); LYMPH % 8.4 % (24.0-44.0); MEAN CORPUSCULAR HEMOGLOBIN 30.6 pg (27.0-33.0); MEAN CORPUSCULAR HGB CONC 32.5 g/dl (32.0-36.5); MEAN CORPUSCULAR VOLUME 94.2 fl (80.0-96.0); MONO % 8.4 % (0.0-5.0); NEUTROPHILS # 9.5 10^3/uL (1.5-8.5); NEUTROPHILS % 79.5 % (36.0-66.0); PLATELET COUNT, AUTOMATED 152 10^3/uL (150-450)
[2020-02-26 12:54] LABS: ALBUMIN 3.3 GM/DL (3.2-5.2); ALT/SGPT 60 U/L (12-78); BILIRUBIN,TOTAL 0.9 MG/DL (0.2-1.0); BLOOD UREA NITROGEN 23 MG/DL (7-18); CALCIUM LEVEL 9.1 MG/DL (8.8-10.2); CARBON DIOXIDE LEVEL 38 MEQ/L (21-32); CHLORIDE LEVEL 93 MEQ/L (98-107); CREATININE FOR GFR 1.01 MG/DL (0.70-1.30); GLOMERULAR FILTRATION RATE > 60.0 (>49); GLUCOSE, FASTING 148 MG/DL (70-100); POTASSIUM SERUM 3.9 MEQ/L (3.5-5.1); SODIUM LEVEL 137 MEQ/L (136-145); TOTAL PROTEIN 7.2 GM/DL (6.4-8.2)
[2020-02-26 14:17] LABS: HEMOGLOBIN A1c 7.1 %
== END ==
LOC: M WUC 09:28
PROVIDERS: ATTEND Physician Assistant Medical
DX: E11.9 Type 2 diabetes mellitus without complications (principal); E66.01 Morbid (severe) obesity due to excess calories; I50.32 Chronic diastolic (congestive) heart failure; N40.1 Benign prostatic hyperplasia with lower urinary tract symptoms